=== PATIENT | female | born 1985 | race Caucasian/White ===

== ENCOUNTER 2018-04-12 14:47 | Emergency (ER) | payer OTHER, MEDICAID, SELFPAY ==
[2018-04-12 14:53] VITALS: BP 113/60; PULSE 82; RESP 18; TEMP 36.8; O2SAT 100; BMI 16.5
--- NOTE | 2018-04-12 15:17 | ED_ITS ---
HPI - General Adult <ANNA Mercer - Last Filed: 04/12/18 22:35> General Chief complaint: Diabetic Problem Stated complaint: POSSIBLE PRE DIABETIC,BLURRY VISION LETHARGIC Time Seen by Provider: 04/12/18 15:16 History of Present Illness HPI narrative: 32-year-old female here for complaint of having episodes of blurry vision on and off over the past couple of months. She believes that the blurry episodes coincide with when she has eaten something sugar and is concerned for diabetes. She denies any head injury. She denies any headaches. No discomfort at this time. No blurry vision at this time. She states that the last blurry episode was yesterday and lasted approximately 2 hr. Positive p.o. intake. No fevers no chills. She denies any other concerns or complaints at this time. Related Data Home Medications Medication Instructions Recorded Confirmed medroxyprogesterone 150 mg IM X1 #0 03/02/17 Previous Rx's Medication Instructions Recorded levonorgestrel-ethinyl estrad 1 tab PO QDAY #3 pac 09/09/17 [Aviane] levonorgestrel [My Way] 1.5 mg PO ONCE #1 tab 09/19/17 nitrofurantoin monohyd/m-cryst 100 mg PO BID #10 tab 10/13/17 [Macrobid] lorazepam [Ativan] 1 mg PO Q4H PRN #8 tab 01/10/18 Allergies Allergy/AdvReac Type Severity Reaction Status Date / Time No Known Drug Allergies Allergy Verified 04/12/18 15:02 Review of Systems <ANNA Mercer - Last Filed: 04/12/18 22:35> Constitutional Denies chills, Denies fever(s), Denies lethargy and Denies weakness Eyes Reports blurry vision ENT Ears, Nose, Mouth, and Throat: Denies change in voice, Denies neck pain and Denies sore throat Cardiovascular Denies chest pain, Denies irregular heart rhythm, Denies lightheadedness, Denies palpitations, Denies dyspnea, Denies dyspnea on exertion and Denies orthopnea Respiratory Denies cough, Denies dyspnea, Denies dyspnea on exertion and Denies wheezing Gastrointestinal Gastrointestinal: Denies abdominal pain, Denies change in bowel habits, Denies diarrhea, Denies nausea and Denies vomiting Genitourinary Denies hematuria, Denies flank pain, Denies urinary incontinence and Denies urinary urgency Musculoskeletal Denies neck pain Integumentary/Breasts Denies pruritus, Denies erythema, Denies rash and Denies wounds Neurologic Denies weakness Endocrine Denies palpitations Hematologic/Lymphatic Denies easy bruising Allergic/Immunologic Denies wheezing Exam <ANNA Mercer - Last Filed: 04/12/18 22:35> Initial Vital Signs Initial Vital Signs: Vital Signs Temperature 98.2 F 04/12/18 14:53 Pulse Rate 82 04/12/18 14:53 Respiratory Rate 18 04/12/18 14:53 Blood Pressure 113/60 04/12/18 14:53 Pulse Oximetry 100 04/12/18 14:53 Const General: cooperative and well developed Nutritional Appearance: well nourished Orientation: alert, awake, oriented x3 and not confused HENCT Mouth: oral mucosae normal and moist mucous membranes Eyes General: appearance normal, both eyes and all related structures Eyelids: eyelids normal Conjunctivae: conjunctivae normal Sclera: sclerae normal Pupils: PERRL EOM: EOM intact bilaterally Resp Effort & Inspection: normal respiratory effort, able to speak in complete sentences, no respiratory distress and no use of accessory muscles Auscultation: clear to auscultation bilaterally, no rales, no rhonchi and no wheezes Cardio Rate: regular rate Rhythm: regular rhythm Heart Sounds: no click, no gallops, no murmurs and no rubs Skin General: no rashes or lesions noted, No jaundice and No petechiae Neuro General: alert, oriented x3, gait normal and no focal motor deficits Speech: speech normal <Jenn Markham DO - Last Filed: 04/18/18 07:28> Initial Vital Signs Initial Vital Signs: Vital Signs Temperature 98.2 F 04/12/18 14:53 Pulse Rate 82 04/12/18 14:53 Respiratory Rate 18 04/12/18 14:53 Blood Pressure 113/60 04/12/18 14:53 Pulse Oximetry 100 04/12/18 14:53 Course <NANA Mercer - Last Filed: 04/12/18 22:35> Orders Ordered: ED Orders 04/12/18 17:34 CT head/brain wo con Stat 04/12/18 18:35 Complete Blood Count AUTO DIFF Stat Comprehensive Metabolic Panel Stat Thyroid Stimulating Hormone Stat Vital Signs - 8 hr 04/12/18 14:53 04/12/18 18:19 04/12/18 20:34 Temperature 98.2 F Pulse Rate 82 54 L 56 L Respiratory Rate 18 14 Blood Pressure 113/60 121/56 H Blood Pressure [Right Arm] 114/46 L Pulse Oximetry 100 100 18 L <Jenn Markham DO - Last Filed: 04/18/18 07:28> Orders Ordered: ED Orders 04/12/18 17:34 CT head/brain wo con Stat 04/12/18 18:35 Complete Blood Count AUTO DIFF Stat Comprehensive Metabolic Panel Stat Thyroid Stimulating Hormone Stat Vital Signs - 8 hr 04/12/18 14:53 04/12/18 18:19 04/12/18 20:34 Temperature 98.2 F Pulse Rate 82 54 L 56 L Respiratory Rate 18 14 Blood Pressure 113/60 121/56 H Blood Pressure [Right Arm] 114/46 L Pulse Oximetry 100 100 18 L Medical Decision Making <ANNA Mercer - Last Filed: 04/12/18 22:35> MDM Narrative Medical decision making narrative: CBC Chem panel were obtained and were unremarkable. TSH was only slightly low at 0.45. Head CT was obtained and was unremarkable. No causes of her episodes of blurry vision is seen. Will have her monitor her blood pressure over the next several days and bring results with her to her primary care provider for further evaluation. Follow up with primary care provider next week. Return emergency room for any worsening symptoms. Lab Data Result diagrams: 04/12/18 18:35 04/12/18 18:35 Lab Results 04/12/18 04/12/18 04/12/18 Range/Units 18:35 18:35 18:35 WBC 8.0 (4.5-11.0) X10^3/uL RBC 4.34 (4.0-5.2) X10^6/uL Hgb 13.8 (12.0-16.0) g/dL Hct 41.0 (36-46) % MCV 94.5 (80-100) fL MCH 31.8 (26-34) PG MCHC 33.6 (30-36) % RDW 13.0 (11.6-14.8) % Plt Count 211 (150-400) X10^3/uL Neut % (Auto) 65.0 (50-75) % Lymph % (Auto) 25.2 (25-40) % [place] % (Auto) 7.6 (3-14) % Eos % (Auto) 1.8 L (2-4) % Baso % (Auto) 0.4 (0-2) % Neut # (Auto) 5200 (2669-0416) /uL Sodium 139 (137-145) mmol/L Potassium 3.9 (3.4-5.1) mmol/L Chloride 101 (98-107) mmol/L Carbon Dioxide 31 (22-32) mmol/L BUN 16 (7-17) mg/dL Creatinine 0.70 (0.52-1.04) mg/dL Estimated GFR > 60.0 (>60) mL/min BUN/Creatinine Ratio 22.9 H (6-22) Glucose 100 (70-100) mg/dL Calcium 8.9 (8.4-10.2) mg/dL Total Bilirubin 0.5 (0.2-1.3) mg/dL AST 18 (14-36) IU/L ALT 20 (9-52) IU/L Alkaline Phosphatase 52 (38-126) U/L Total Protein 6.9 (6.3-8.2) g/dL Albumin 4.0 (3.5-5.0) g/dL Globulin 2.9 (1.7-4.1) g/dL Albumin/Globulin Ratio 1.4 (1.0-2.8) TSH 0.45 L (0.47-4.68) uIU/mL Imaging Data Head CT: Radiologist's impression: PROCEDURE: CT HEAD/BRAIN WO CON INDICATIONS: States has had periods of a blurry vision on and off TECHNIQUE: Noncontrast 4.5 mm thick angled axial sections acquired from the foramen magnum to the vertex, with coronal and sagittal reformats. For radiation dose reduction, the following was used: automated exposure control, adjustment of mA and/or kV according to patient size. COMPARISON: None. FINDINGS: Image quality: Excellent. CSF spaces: Basal cisterns are patent. No extra-axial fluid collections. Ventricles are normal in size and shape. Brain: No midline shift. No intracranial masses or hemorrhage. Isbell-white matter interface is normal. Skull and face: Calvarium and visualized facial bones are intact, without suspicious lesions. Sinuses: Visualized sinuses and mastoids are clear. IMPRESSION: Unremarkable intracranial study. Dictated by: Oscar Carias M.D. on 04/12/2018 at 16:52 Approved by: Oscar Carias M.D. on 04/12/2018 at 16:53 <Jenn Markham DO - Last Filed: 04/18/18 07:28> Lab Data Lab Results 04/12/18 04/12/18 04/12/18 Range/Units 18:35 18:35 18:35 WBC 8.0 (4.5-11.0) X10^3/uL RBC 4.34 (4.0-5.2) X10^6/uL Hgb 13.8 (12.0-16.0) g/dL Hct 41.0 (36-46) % MCV 94.5 (80-100) fL MCH 31.8 (26-34) PG MCHC 33.6 (30-36) % RDW 13.0 (11.6-14.8) % Plt Count 211 (150-400) X10^3/uL Neut % (Auto) 65.0 (50-75) % Lymph % (Auto) 25.2 (25-40) % [place] % (Auto) 7.6 (3-14) % Eos % (Auto) 1.8 L (2-4) % Baso % (Auto) 0.4 (0-2) % Neut # (Auto) 5200 (4333-9767) /uL Sodium 139 (137-145) mmol/L Potassium 3.9 (3.4-5.1) mmol/L Chloride 101 (98-107) mmol/L Carbon Dioxide 31 (22-32) mmol/L BUN 16 (7-17) mg/dL Creatinine 0.70 (0.52-1.04) mg/dL Estimated GFR > 60.0 (>60) mL/min BUN/Creatinine Ratio 22.9 H (6-22) Glucose 100 (70-100) mg/dL Calcium 8.9 (8.4-10.2) mg/dL Total Bilirubin 0.5 (0.2-1.3) mg/dL AST 18 (14-36) IU/L ALT 20 (9-52) IU/L Alkaline Phosphatase 52 (38-126) U/L Total Protein 6.9 (6.3-8.2) g/dL Albumin 4.0 (3.5-5.0) g/dL Globulin 2.9 (1.7-4.1) g/dL Albumin/Globulin Ratio 1.4 (1.0-2.8) TSH 0.45 L (0.47-4.68) uIU/mL Discharge Plan Departure Patient Disposition: Home, Self-Care Clinical Impression: Blurring of vision Discharge Date/Time: 04/12/18 20:34 Interventions: ED Discharge Assessment Last Done: 04/12/18 20:34 Instructions: DI for Visual Field Disturbances Activity Restrictions/Additional Instructions: Laboratory results today and head CT were negative. Causes symptoms is not seen today in the emergency room. Monitor your blood pressure periodically over the next several days and bring results with you to her primary care provider when you follow up within next week. For any worsening symptoms return to the emergency room. Prescriptions: No Action medroxyprogesterone 150 MG/1 ML suspension 150 mg IM X1 Qty: 0 RF: 0 levonorgestrel-ethinyl estrad [Aviane] 1 EACH tablet 1 tab PO QDAY Qty: 3 RF: 4 levonorgestrel [My Way] 1.5 MG tablet 1.5 mg PO ONCE Qty: 1 RF: 1 nitrofurantoin monohyd/m-cryst [Macrobid] 100 MG capsule 100 mg PO BID Qty: 10 RF: 0 lorazepam [Ativan] 1 MG tablet 1 mg PO Q4H PRNQty: 8 RF: 0 Referrals: Aydee Sands ARNP [Primary Care Provider] - <Jenn Markham DO - Last Filed: 04/18/18 07:28> Cosign ED Attending [place] Attestation: I was immediately available in the department for consultation. Documentation has been reviewed. I agree with assessment and plan.
--- NOTE | 2018-04-12 17:11 | PC.NURSE ---
Pt states I need blood work. Unable to see primary for a week so came to ED. Steady gait, easy work of breathing. No acute distress but requesting multiple lab studies including thyroid, HgbA1C. Attempted to manage expectations stating that the provider would have to order labs.
--- NOTE | 2018-04-12 17:34 | DI.CT.S_ITS ---
PROCEDURE: CT HEAD/BRAIN WO CON INDICATIONS: States has had periods of a blurry vision on and off TECHNIQUE: Noncontrast 4.5 mm thick angled axial sections acquired from the foramen magnum to the vertex, with coronal and sagittal reformats. For radiation dose reduction, the following was used: automated exposure control, adjustment of mA and/or kV according to patient size. COMPARISON: None. FINDINGS: Image quality: Excellent. CSF spaces: Basal cisterns are patent. No extra-axial fluid collections. Ventricles are normal in size and shape. Brain: No midline shift. No intracranial masses or hemorrhage. Isbell-white matter interface is normal. Skull and face: Calvarium and visualized facial bones are intact, without suspicious lesions. Sinuses: Visualized sinuses and mastoids are clear. IMPRESSION: Unremarkable intracranial study. Dictated by: Oscar Carias M.D. on 04/12/2018 at 16:52 Approved by: Oscar Carias M.D. on 04/12/2018 at 16:53
[2018-04-12 18:19] VITALS: BP 114/46; PULSE 54; RESP 14; O2SAT 100
[2018-04-12 19:04] LABS: Alanine Aminotransferase 20 IU/L (9-52); Albumin Globulin Ratio 1.4 (1.0-2.8); Alkaline Phosphatase 52 U/L (38-126); Aspartate Aminotransferase 18 IU/L (14-36); BUN Creatinine Ratio 22.9 (6-22); Bilirubin Total 0.5 mg/dL (0.2-1.3); Blood Urea Nitrogen 16 mg/dL (7-17); Calcium 8.9 mg/dL (8.4-10.2); Carbon Dioxide 31 mmol/L (22-32); Chloride 101 mmol/L (98-107); Estimated Glomerular Filt Rate > 60.0 mL/min (>60); Globulin 2.9 g/dL (1.7-4.1); Glucose 100 mg/dL (70-100); HEMOLYSIS < 15 (0-50); Potassium 3.9 mmol/L (3.4-5.1); Sodium 139 mmol/L (137-145); Total Protein 6.9 g/dL (6.3-8.2)
[2018-04-12 19:10] LABS: Add Manual Diff / Slide Review NO; Basophils Percent Auto 0.4 % (0-2); Eosinophils Percent Auto 1.8 % (2-4); Hemoglobin 13.8 g/dL (12.0-16.0); Lymphocytes Percent Auto 25.2 % (25-40); Mean Corpuscular HGB Conc 33.6 % (30-36); Mean Corpuscular Hemoglobin 31.8 PG (26-34); Mean Corpuscular Volume 94.5 fL (80-100); Monocytes Percent Auto 7.6 % (3-14); Neutrophils Absolute Auto 5200 /uL (3000-5900); Platelet Count 211 X10^3/uL (150-400); Red Blood Cell Count 4.34 X10^6/uL (4.0-5.2)
[2018-04-12 20:11] LABS: Thyroid Stimulating Hormone 0.45 uIU/mL (0.47-4.68)
[2018-04-12 20:34] VITALS: BP 121/56; PULSE 56; O2SAT 18
== END 2018-04-12 20:34 | disposition home or self-care (01) ==
PROVIDERS: Emergency Provider Nurse Practitioner Family; PCP Internal Medicine
DX: H53.8 Other visual disturbances (principal)
CPT/HCPCS: 70450; 80053; 82962; 84443; 85025; 99283; 99284

== ENCOUNTER 2018-11-13 09:49 | Emergency (ER) | payer OTHER, MEDICAID, SELFPAY ==
[2018-11-13 10:00] VITALS: BP 112/50; PULSE 60; RESP 16; TEMP 36.7; O2SAT 99
--- NOTE | 2018-11-13 10:21 | ED.URI ---
HPI - URI/Sore Throat General Chief Complaint: Upper Respiratory Symptoms Stated Complaint: pnemonia, starting to vomit with cough, chest pain Time Seen by Provider: 11/13/18 10:07 Source: patient and family Mode of arrival: ambulatory Limitations: no limitations History of Present Illness HPI Narrative: This is a 33-year-old female comes to the emergency department with complaint of feeling under the weather, no fevers but cough it has been dry. Patient states she has had a little bit of nasal congestion but mostly she has had chest congestion. She states that some sometimes if she coughs very hard to gets pain in her central chest. Patient states that if she is exerting herself sometimes she will feel short of breath. Patient states about a month ago she was diagnosed with influenza based on symptoms., patient states that in the last day or 2 she has had some nausea and threw up once today. She has had maybe some mild constipation but having bowel movements. She has noticed urinary frequency, urgency and no dysuria but feels fullness in her pelvis. She also states she has been on the Depo shot for about for 5 months. Her most recent was in October. Patient states she does smoke about 2 or 3 cigarettes most days sometimes more, occasional alcohol. She sees a Aydee Sands as her PCP. Related Data Home Medications Medication Instructions Recorded Confirmed medroxyprogesterone [Depo-Provera] 150 mg IM [id number] 11/13/18 11/13/18 Previous Rx's Medication Instructions Recorded cephalexin [Keflex] 500 mg PO BID #10 cap 11/13/18 ondansetron 4 mg PO Q6H PRN #10 tab 11/13/18 prenat.vits,anton,sry-spcx-bnxre 1 tab PO DAILY #30 tab 11/13/18 Allergies Allergy/AdvReac Type Severity Reaction Status Date / Time No Known Drug Allergies Allergy Verified 08/02/18 09:21 Review of Systems Review of Systems ROS Unobtainable: All systems reviewed & are unremarkable except as noted in HPI and below Constitutional Denies fatigue and Denies lethargy Eyes Reports eye discharge (teary eyes) ENT Ears, Nose, Mouth, and Throat: Reports nasal congestion (very mild) and Denies sore throat Cardiovascular Reports chest pain (when coughing hard), Denies diaphoresis, Denies syncope, Denies irregular heart rhythm, Denies lightheadedness, Denies radiating jaw, neck or arm pain, Denies palpitations, Denies dyspnea, Reports dyspnea on exertion and Denies orthopnea Respiratory Denies change in phlegm color, Reports chest congestion, Reports cough, Denies excessive phlegm production, Denies pain on inspiration, Reports pain with cough, Denies dyspnea, Reports dyspnea on exertion, Denies stridor and Denies wheezing Gastrointestinal Gastrointestinal: Denies abdominal pain, Denies change in bowel habits, Reports constipation (mild), Denies diarrhea, Reports nausea and Reports vomiting (x1) Genitourinary Reports as per HPI, Reports amenorrhea (since Depo), Denies hematuria, Reports urinary frequency, Denies dysuria, Denies flank pain, Denies urinary incontinence, Reports urinary urgency, Denies vaginal discharge and Reports other (pelvis feels full) Musculoskeletal Denies myalgias Integumentary/Breasts Denies rash Neurologic Denies syncope Endocrine Denies fatigue and Denies palpitations Allergic/Immunologic Denies wheezing PFSH Surgical History Status post dilation and curettage Family History Grandfather Prostate cancer Grandmother Breast cancer Diabetes mellitus Mother Chronic hepatitis B with cirrhosis Social History Smoking Status: Current every day smoker alcohol intake: current Family History Grandfather Prostate cancer Grandmother Breast cancer Diabetes mellitus Mother Chronic hepatitis B with cirrhosis Social History Smoking Status: Current every day smoker alcohol intake: current Exam Narrative Exam Narrative: GEN: well nourished, well appearing female, alert and oriented x , patient appears to be in mild distress. HEENT: Atraumatic, pupils are equal round reactive to light, extraocular movements are intact, nares are clear, TMs are clear with no fluid, there is no conjunctival pallor. Throat is clear without any exudates, erythema, tonsillar enlargement or uvular deviation HEART: Regular rate and rhythm without murmur, clicks, rubs. LUNGS:Lungs clear to auscultation, no wheezes, rales, crackles, chest moves symmetrically. No tachypnea, no accessory muscle use. ABD:bowel sounds normal, soft, non-tender, no guarding, rebound, rigidity, no masses noted, no hepatosplenomegaly :No CVA tenderness MSCL: Non-tender, no muscle atrophy, muscles strength 5/5 upper and lower extremities, full range of motion, normal gait NEURO:CN 2-12 intact, sensation normal SKIN: no rash, no pallor. Initial Vital Signs Initial Vital Signs: Vital Signs Temperature 98.1 F 11/13/18 10:00 Pulse Rate 60 11/13/18 10:00 Respiratory Rate 16 11/13/18 10:00 Blood Pressure 112/50 L 11/13/18 10:00 Pulse Oximetry 99 11/13/18 10:00 Course Orders Ordered: Discontinued Medications Ondansetron HCl (Zofran Odt) 4 mg SL NOW ONE Stop: 11/13/18 10:56 Last Admin: 11/13/18 11:04 Dose: 4 mg Vital Signs - 8 hr 11/13/18 10:00 Temperature 98.1 F Pulse Rate 60 Respiratory Rate 16 Blood Pressure 112/50 L Pulse Oximetry 99 MDM - URI/Sore Throat Lab Data Attestation: I reviewed the patient's lab results. Lab Results 11/13/18 Range/Units 10:30 Urine RBC 1-5/hpf (0-5/HPF) Urine WBC 30-100/hpf H (0-5/HPF) Ur Squamous Epith Cells 1-5 /hpf Urine Bacteria Many (>30) H (None) Ur Culture Indicated? Specimen cultured Point of Care Testing Test Results Positive Urine Dip Bedside Urine Glucose Negative Bedside Urine Bilirubin - Negative Bedside Urine Ketone - Negative Urine Specific [place] 1.020 Bedside Urine Occult Blood +/- Bedside Urine pH 60 Bedside Urine Protein +/- 15 Bedside Urine Urobilinogen - Negative Bedside Urine Nitrite + Positive Bedside Urine Leukocytes ++ 125 Esterase Imaging Data Chest x-ray: Radiologist's impression: [address] [address] XRay Report Signed Patient: Marcos Olivarez KMR#: [id number] : 1985Acct:[id number] Age/Sex: 33 / FDate of Service: 11/13/18 Loc: ED Accession Number: [id number] Procedure: XR chest 2V Ordering Provider: Dyan Dewitt D.O. PROCEDURE: XR CHEST 2V INDICATIONS: cough, chest congestion for weeks TECHNIQUE: 2 views of the chest were acquired. COMPARISON: None. FINDINGS: Surgical changes and devices: None. Lungs and pleura: Lungs are clear. No pleural effusions or pneumothorax. Mediastinum: Mediastinal contours are normal. Heart size is normal. Bones and chest wall: No suspicious bony abnormalities. Soft tissues appear unremarkable. IMPRESSION: No acute cardiopulmonary disease process. Dictated by: Tiffany Bowens MD, PhD on 11/13/2018 at 10:32 Approved by: Tiffany Bowens MD, PhD on 11/13/2018 at 10:33 [facility] Narrative Medical decision making narrative: Patient did have a chest xray prior to positive test, this was unexpected as patient has been on depo-provera and at last shot in October had a negative test. Discussed with patient that there is some radiation exposure, likelihood of miscarriage or injury to the fetus is fairly low from a single chest x-ray. Answered all questions for patient. By dates using October 03 as her dates with her about 5-6 week range. Patient and I discussed plan to start prenatals. She has been nauseated to give her a Zofran here as well as a prescription. Urine does show some signs consistent with UTI so started on Keflex twice daily for 5 days. Call patient's primary care to help set up follow-up, appointment for 1:30pm this tuesday Discharge Plan Departure Patient Disposition: Home Clinical Impression: UTI (urinary tract infection), Discharge Date/Time: 11/13/18 11:15 Interventions: ED Discharge Assessment Last Done: 11/13/18 11:15 Instructions: Nicotine Replacement Therapy for Smoking Cessation During Activity Restrictions/Additional Instructions: Follow up with your primary care for recheck, care and discussion about options for smoking cessation. Take prenatals once daily. Take zofran sublingually or under the tongue every 6 hours as needed. Your prescriptions were sent to [email or web address] in [place]. Take antibiotics until gone. Stop smoking tobacco, avoid alcohol. Good job on your sobriety, keep going. Return for fevers, worsening shortness of breath, new chest pain, persistent vomiting or signs of dehydration or other new or concerning symptoms. Prescriptions: New ondansetron 4 mg tablet,disintegrating 4 mg PO Q6H PRN (Reason: nausea and vomiting) Qty: 10 RF: 0 prenat.vits,anton,[id number]-[id number]-tmpmd tablet 1 tab PO DAILY Qty: 30 RF: 0 cephalexin [Keflex] 500 mg capsule 500 mg PO BID Qty: 10 RF: 0 No Action medroxyprogesterone [Depo-Provera] 150 mg/mL Suspension 150 mg IM [id number] RF: 0 Referrals: Aydee Sands ARNP [Primary Care Provider] -
[2018-11-13 10:52] LABS: RBC Urine 1-5/HPF (0-5/HPF); WBC Urine 30-100/HPF (0-5/HPF)
[2018-11-13 10:53] LABS: Bacteria Urine Many (>30); Culture Indicated Urine Specimen Cultured; Squamous Epithelial Cell Urine 1-5 /HPF
[2018-11-13] MEDS: ONDANSETRON 4 MG ODT SL (11:04)
[2018-11-13 11:15] VITALS: BP 136/64; PULSE 62; RESP 18; TEMP 36.3; O2SAT 98
== END 2018-11-13 11:15 | disposition home or self-care (01) ==
PROVIDERS: Emergency Provider Emergency Medicine; PCP Internal Medicine
DX: O23.41 Unspecified infection of urinary tract in pregnancy, first trimester (principal); Z3A.01 Less than 8 weeks gestation of pregnancy
CPT/HCPCS: 71046; 81003; 81015; 81025; 87077; 87086; 87186; 99283; 99284

== ENCOUNTER → 2018-11-16 10:51 | Outpatient (CLI) | payer OTHER, MEDICAID, SELFPAY ==
--- NOTE | 2018-11-16 | DI.US.S_ITS ---
PROCEDURE: US OB >= 14 WEEKS FETUS INDICATIONS: SIZE AND DATING OUTSIDE/PRIOR DATING DATA: Last menstrual period (LMP): Unknown. LMP-based estimated date of delivery (NATHAN): N./A.. First dating scan (date and location): 11/16/18. Estimated date of delivery (NATHAN) from first dating scan: 04/20/19. TECHNIQUE: Real-time scanning was performed of the fetus, with image documentation and biometric measurements. Endovaginal scanning: No COMPARISON: None. FINDINGS: General: A single living intrauterine gestation is present. Presentation: Variable. Placenta: Placental position is posterior, without previa. Amniotic fluid index: Subjectively normal. heart rate: 149 beats per minute. Maternal cervical canal: 3.5 cm long. Normal lower limit is 2.5 cm. biometrics: Biparietal diameter: 17 weeks 5 days Head circumference: 17 weeks 6 days Abdominal circumference: 18 weeks 4 days Femur length: 17 weeks 2 days Estimated gestational age from initial scan: not applicable. Composite gestational age from present scan: 17 weeks 6 days Estimated weight and percentile: 216 g Measurement variability for biometric dating: +/- 7 days from 14 weeks to 15 weeks 6 days gestation, +/- 10 days from 16 weeks to 21 weeks 6 days gestation, +/- 2 weeks from 22 weeks to 27 weeks 6 days gestation, +/- 3 weeks for 28 weeks gestation or later. weight reference: 4500 g or EFW >90/95% is considered macrosomia or large for gestational age. EFW <10% is small for gestational age. EFW 5% or less is considered intra-uterine growth restriction. Limited anatomic survey secondary to early gestational age. IMPRESSION: 1. 17 week 6 day single living IUP corresponding to ultrasound NATHAN of 04/20/19. Followup anatomic survey recommended between 20 and 22 weeks gestation. Dictated by: Daniel Caban [facility] Interpreted: Estella Ramirez MD on 11/16/2018 at 15:31 Approved by: Estella Ramirez M.D. on 11/16/2018 at 17:45
== END ==
PROVIDERS: Family Provider Obstetrics & Gynecology; PCP Internal Medicine; Visit Provider Internal Medicine
DX: Z36.89 Encounter for other specified antenatal screening (principal); Z3A.17 17 weeks gestation of pregnancy
CPT/HCPCS: 76811

== ENCOUNTER → 2018-11-24 13:43 | Outpatient (CLI) | payer OTHER, MEDICAID, SELFPAY ==
[2018-11-24 15:00] LABS: Add Manual Diff / Slide Review NO; Basophils Absolute Auto 0 /uL (0-100); Basophils Percent Auto 0.3 % (0-2); Eosinophils Absolute Auto 100 /uL (0-450); Eosinophils Percent Auto 1.3 % (2-4); Hematocrit 39.9 % (36-46); Hemoglobin 13.2 g/dL (12.0-16.0); Lymphocytes Absolute Auto 2200 /uL (1100-4500); Lymphocytes Percent Auto 24.3 % (25-40); Mean Corpuscular HGB Conc 33.1 % (30-36); Mean Corpuscular Hemoglobin 31.3 PG (26-34); Mean Corpuscular Volume 94.6 fL (80-100); Monocytes Absolute Auto 700 /uL (0-900); Monocytes Percent Auto 7.5 % (3-14); Neutrophils Absolute Auto 5900 /uL (1500-7000); Neutrophils Percent Auto 66.6 % (50-75); Platelet Count 238 X10^3/uL (150-400); Red Blood Cell Count 4.22 X10^6/uL (4.0-5.2); Red Cell Distribution Width 13.8 % (11.6-14.8); White Blood Cell Count 8.9 X10^3/uL (4.5-11.0)
[2018-11-24 16:06] LABS: Hepatitis B Surface Antigen NEGATIVE s/c (NEGATIVE); Rubella Antibody IgG 22.9 IU/mL (>15)
[2018-11-24 16:25] LABS: HIV 1 and 2 Antibody NEGATIVE (NEGATIVE); Hep C Virus Ab w/Reflex Quant NEGATIVE s/c (NEGATIVE)
[2018-11-24 17:19] LABS: Urine N gonorrhoeae NOT DETECTED
[2018-11-24 17:23] LABS: Urine Chlamydia NOT DETECTED
[2018-11-27 06:19] LABS: RPR Screen Nonreactive (Nonreactive)
[2018-11-28 14:37] LABS: AFP, Serum 60.3 ng/mL; Cigarette Smoker Y; Donated Egg NOT GIVEN; Donor Egg Age NOT GIVEN; Estriol, Free 1.58 ng/mL; Inhibin A, Dimeric 533 pg/mL; Maternal Weight 120 lbs; Number of Fetuses NOT GIVEN; Previous Pregnancy Down Syndro NOT GIVEN; hCG, MoM 2.05; hCG, Serum 50.6 IU/mL
== END ==
PROVIDERS: PCP Internal Medicine; Visit Provider Obstetrics & Gynecology
DX: Z34.82 Encounter for supervision of other normal pregnancy, second trimester (principal); Z3A.18 18 weeks gestation of pregnancy
CPT/HCPCS: 36415; 80055; 82105; 82677; 84702; 86336; 86703; 86787; 86803; 86850; 86900; 86901; 87086; 87491; 87591

== ENCOUNTER → 2018-12-08 09:22 | Outpatient (CLI) | payer OTHER, MEDICAID, SELFPAY ==
--- NOTE | 2018-12-08 09:25 | DI.US.S_ITS ---
PROCEDURE: US OB >= 14 WEEKS FETUS INDICATIONS: anatomy survey OUTSIDE/PRIOR DATING DATA: Last menstrual period (LMP): Not available. LMP-based estimated date of delivery (NATHAN): Not available. First dating scan (date and location): 11/16/18. Estimated date of delivery (NATHAN) from first dating scan: 04/20/19. TECHNIQUE: Real-time scanning was performed of the fetus, with image documentation and biometric measurements. Endovaginal scanning: Not needed COMPARISON: [facility], OB >= 14 WEEKS FETUS, 11/16/2018, 11:35. FINDINGS: General: A single living intrauterine gestation is present. Presentation: Variable. Placenta: Placental position is posterior , without previa. Amniotic fluid index: 9.3 cm, normal range is 5-24 cm. heart rate: 149 beats per minute. Maternal cervical canal: 4.1 cm long. Normal lower limit is 2.5 cm. biometrics: Biparietal diameter: 4.7 cm, 20 weeks 2 days Head circumference: 18.3 cm, 20 weeks 5 days Abdominal circumference: 15.7 cm, 20 weeks 6 days Femur length: 3.3 cm, 20 weeks 3 days Estimated gestational age from initial scan: 20 weeks 4 days Composite gestational age from present scan: 21 weeks 4 days Estimated weight and percentile: 369 g, 28th percentile Measurement variability for biometric dating: +/- 7 days from 14 weeks to 15 weeks 6 days gestation, +/- 10 days from 16 weeks to 21 weeks 6 days gestation, +/- 2 weeks from 22 weeks to 27 weeks 6 days gestation, +/- 3 weeks for 28 weeks gestation or later. weight reference: 4500 g or EFW >90/95% is considered macrosomia or large for gestational age. EFW <10% is small for gestational age. EFW 5% or less is considered intra-uterine growth restriction. Anatomic survey: Neuro: Ventricles are non-dilated at less than 10 mm. Cisterna magna is normal at 3-11 mm. Cerebellum is normal in size and morphology. Nuchal skin fold: Normal at less than 6 mm between 14-21 weeks gestational age. Face: Nose and lips, facial profile are normal. Spine: No evidence for spina bifida. Heart: 4-chambered heart is present, with normal ventricular outflow tracts. Diaphragm: Diaphragm is intact. Stomach: Left-sided stomach is present. Kidneys: No hydronephrosis. Normal is less than 5 mm in 2nd trimester, less than 7 mm in 3rd trimester. Cord: 3-vessel cord has orthotopic insertion. Bladder: Normal in size. Extremities: All 4 extremities identified. IMPRESSION: Normal survey of anatomy, appropriate interval growth. The delivery date is projected to be centered on 04/20/19. Dictated by: Alcon Jordan M.D. on 12/08/2018 at 12:34 Approved by: Alcon Jordan M.D. on 12/08/2018 at 12:37
== END ==
PROVIDERS: PCP Internal Medicine; Visit Provider Obstetrics & Gynecology
DX: Z34.82 Encounter for supervision of other normal pregnancy, second trimester (principal); Z3A.20 20 weeks gestation of pregnancy
CPT/HCPCS: 76811

== ENCOUNTER → 2019-02-14 08:48 | Outpatient (CLI) | payer OTHER, MEDICAID, SELFPAY ==
[2019-02-14 10:33] LABS: Hematocrit 33.7 % (36-46); Hemoglobin 11.5 g/dL (12.0-16.0)
[2019-02-14 10:48] LABS: GTT (PREG) 1 Hour PP 50gm Dose 104 mg/dL (76-139)
== END ==
PROVIDERS: PCP Internal Medicine; Visit Provider Obstetrics & Gynecology
DX: Z34.82 Encounter for supervision of other normal pregnancy, second trimester (principal); Z3A.25 25 weeks gestation of pregnancy
CPT/HCPCS: 36415; 82950; 85014; 85018; 86850

== ENCOUNTER → 2019-03-27 09:57 | Outpatient (CLI) | payer OTHER, MEDICAID, SELFPAY ==
[2019-03-28 15:47] LABS: Strep Grp B PCR POS for Grp B Strep
== END ==
PROVIDERS: PCP Internal Medicine; Visit Provider Obstetrics & Gynecology
DX: Z34.83 Encounter for supervision of other normal pregnancy, third trimester (principal)
CPT/HCPCS: 87653

== ENCOUNTER 2019-04-13 07:11 | Inpatient (IN) | payer OTHER, MEDICAID, SELFPAY ==
[2019-04-13] VITALS (9 sets, daily range): BP systolic 104–121; BP diastolic 53–89; PULSE 70–90; RESP 14–16; TEMP 36.4–36.7; O2SAT 96–99
--- NOTE | 2019-04-13 | PATH_ITS ---
[facility] Accession Number: [id number] . 01 Material submitted: . fallopian tube - SEGMENTS OF RIGHT AND LEFT FALLOPIAN TUBES . 01 Diagnosis: Segments of Right and Left Fallopian Tubes, Excision: Segments of bilateral fallopian tubes without significant abnormalities. MRV/04/16/2019 . 01 Electronically signed: . Myah Karimi MD, Pathologist NPI- [id number] . 01 Gross description: . Received in formalin, labeled with the patient's name and segments of right and left fallopian tubes, are two segments of fallopian tube without fimbriated ends measuring 1.4 cm in length by 0.5 cm in diameter and 1.6 cm in length by 0.4 cm in diameter. The specimen are submitted intact separately in two cassettes. (LUCIEN:[id number]) /MRV . Pathologist provided ICD-10: Z30.2 . 01 CPT . 021112 Performed at: [address], [place], [place] [id number] MD Luke Guallpa MD Phone: [phone]
[2019-04-13] MEDS: LACTATED RINGERS 1,000 ML 100 ML IV ×2 (08:07→11:20)
[2019-04-13] MEDS: OXYTOCIN PREMIX 30 UNIT/500 ML PLAST..BAG IV (08:11)
[2019-04-13] MEDS: PENICILLIN G POTASSIUM 5,000,000 UNIT in DEXTROSE 5% IN WATER 250 ML IV (08:16)
[2019-04-13 08:48] LABS: Add Manual Diff / Slide Review NO; Basophils Absolute Auto 0 /uL (0-100); Basophils Percent Auto 0.4 % (0-2); Eosinophils Absolute Auto 100 /uL (0-450); Eosinophils Percent Auto 0.9 % (2-4); Hematocrit 33.2 % (36-46); Hemoglobin 11.4 g/dL (12.0-16.0); Lymphocytes Absolute Auto 2200 /uL (1100-4500); Lymphocytes Percent Auto 35.6 % (25-40); Mean Corpuscular HGB Conc 34.4 % (30-36); Mean Corpuscular Hemoglobin 30.7 PG (26-34); Mean Corpuscular Volume 89.5 fL (80-100); Monocytes Absolute Auto 600 /uL (0-900); Monocytes Percent Auto 9.9 % (3-14); Neutrophils Absolute Auto 3200 /uL (1500-7000); Neutrophils Percent Auto 53.2 % (50-75); Platelet Count 224 X10^3/uL (150-400); Red Blood Cell Count 3.71 X10^6/uL (4.0-5.2); White Blood Cell Count 6.1 X10^3/uL (4.5-11.0)
[2019-04-13] MEDS: PENICILLIN G POTASSIUM 3,000,000 UNIT/50 ML FROZ.PIGGY 100 UNIT IV (12:07)
--- NOTE | 2019-04-13 16:16 | P.HPOB_ITS ---
OB HPI Date/Time Date of admission: 04/13/19 Date Patient Seen: 04/13/19 Time Patient Seen: 09:30 History of Present Condition Chief complaint: INDUCTION : 7 Para: 5 Estimated Date of Delivery: 04/20/19 Estimated Gestational Age (weeks): 39 Narrative: Marcos Olivarez is a 33 year old female 7 para 5 at 39 weeks gestation for induction of labor Indications Indication for induction OB: history of rapid labor History of Present care: limited care, initiated at week # (18), number of visits (7) and pounds weight gain (26) Dating criteria: based on 2nd trimester US only Ultrasounds: normal mid trimester US Obstetrical complications: none Medical complications: none Preadmission Labs Blood type: 0 (-) negative -: Antibody screen: negative, GBS status: positive, HBsAG: negative and RPR/VDLR: negative -: Chlamydia screen: not detected and Gonorrhea screen: not detected -: Rubella: immune HCT: 33.7 HCAB: negative Quad screen: Normal Urine: negative 1 hr GTT: 104 Prior (ies) History: 5 2 complicated by PPH Evaluation Evaluation Baseline heart rate: 130 Variability: Moderate (11-25) monitor accelerations: Present monitor decelerations: Absent Category of Tracing: I Cervical dilation (cm): 3 Cervical effacement (%): 80 station: -1 Laboratory results: Laboratory Tests 04/13/19 04/13/19 08:18 08:18 WBC 6.1 RBC 3.71 L Hgb 11.4 L Hct 33.2 L MCV 89.5 MCH 30.7 MCHC 34.4 RDW 14.0 Plt Count 224 Neut % (Auto) 53.2 Lymph % (Auto) 35.6 [place] % (Auto) 9.9 Eos % (Auto) 0.9 L Baso % (Auto) 0.4 Neut # (Auto) 3200 Lymph # (Auto) 2200 [place] # (Auto) 600 Eos # (Auto) 100 Baso # (Auto) 0 Blood Type O Negative Antibody Screen Positive Antibody Identification Anti-D PFSH Family History (Updated 03/03/17 @ 00:00 by Conversion Provider) Grandfather Prostate cancer Grandmother Breast cancer Diabetes mellitus Mother Chronic hepatitis B with cirrhosis Social History Smoking Status: Never smoker alcohol intake: current Meds Home Medications Medication Instructions Recorded Confirmed Type prenat.vits,anton,irl-maae-bqwzr 1 tab PO DAILY #30 tab 11/13/18 04/13/19 Rx Allergies Allergy/AdvReac Type Severity Reaction Status Date / Time No Known Drug Allergies Allergy Verified 08/02/18 09:21 Exam Vital Signs (past 8 hours): - 04/13/19 12:02 Blood Pressure 118/53 L Narrative Exam Narrative: Generally: No acute distress Lungs: Clear to auscultation bilaterally Cardiovascular: Regular rate and rhythm Fundal height: 37 cm Estimated weight: 7-1/2 lb Extremities: Negative Homans, no edema Objective Labs Result Diagrams: 04/13/19 08:18 Labs: Laboratory Results - last 24 hr 04/13/19 04/13/19 08:18 08:18 WBC 6.1 RBC 3.71 L Hgb 11.4 L Hct 33.2 L MCV 89.5 MCH 30.7 MCHC 34.4 RDW 14.0 Plt Count 224 Neut % (Auto) 53.2 Lymph % (Auto) 35.6 [place] % (Auto) 9.9 Eos % (Auto) 0.9 L Baso % (Auto) 0.4 Neut # (Auto) 3200 Lymph # (Auto) 2200 [place] # (Auto) 600 Eos # (Auto) 100 Baso # (Auto) 0 Blood Type O Negative Antibody Screen Positive Antibody Identification Anti-D Assessment and Plan Assessment and Plan Assessment and Plan narrative: Assessment: 33-year-old 7 para 5 at 39 weeks gestation for induction of labor secondary to history of rapid labors Baby up for adoption GBS positive Desires permanent sterilization Plan: Pitocin per protocol 2 Epidural as necessary GBS prophylaxis tubal ligation Time Spent with Patient Total time spent with greater than 50% in coordination of care (as documented) at patient's floor/unit and/or counseling patient:: 15-24 minutes
--- NOTE | 2019-04-13 16:16 | PM.OBPRVD ---
Events: Labor Induction Delivery date: 04/13/19 Intrapartal events: Intolerance and Deceleration (variable) Cervical ripening method: none Induction method: per pitocin protocol Delivery augmentation: rupture of membranes Delivery monitor: external FHT and external uterine Route of delivery: vacuum extraction Indication for instrumentation: nonreassuring FHR tracing Episiotomy description: None L&D Laceration Description: None Estimated blood loss (mL): 100 Anesthesia type: Epidural Complications: none Narrative: Patient complete and pushed for 15 minutes. At 1536, a live female infant delivered spontaneously over an intact perineum. The cord was double clamped and cut. Cord bloods were obtained. Pitocin was given in the IV fluids. The placenta delivered intact with a three-vessel cord at 3:38 p.m.. Fundus was massaged to firm. No lacerations. Apgars 9 at 1 minute and 9 at 5 minutes. Epidural analgesia. Baby up for adoption. Adoptive parents here. Mom and stable to recovery. Plan for aftercare: To routine care
--- NOTE | 2019-04-13 16:31 | PM.PREOP ---
Pre-operative Note Interval Note History & Physical reviewed/Exam performed by Physician: Yes Changes to H&P: No
--- NOTE | 2019-04-13 17:14 | SUR.OPER ---
Supine on padded OR bed, head on pillow, arms secured on padded arm boards at <90 degrees abduction, legs uncrossed, safety belt at thigh, tape over blanket over lower legs.
[2019-04-13] MEDS: BUPIVACAINE 0.5% W/ EPI (PF) VIAL 30 ML INJ (17:20)
[2019-04-13] MEDS: MEPERIDINE 100 MG/ML INJ IV (18:03)
[2019-04-13] MEDS: fentaNYL 100 MCG/2 ML INJ 50 MCG IV (18:52)
[2019-04-13] MEDS: OXYCODONE/ACETAMINOPHEN 5/325 TABLET 2 TAB PO (21:55)
--- NOTE | 2019-04-14 00:54 | PM.GYNOP.1 ---
Operative Date/Time/Diagnoses Date of procedure: 04/13/19 Time of procedure: 17:35 Pre-op diagnosis: Grand multiparity Desires permanent sterilization Post-op diagnosis: same Procedure: Procedures Operation Date: 04/13/19 17:00 Actual Procedures Side Surgeon p Post Bilateral Tubal Ligation Bilateral Cheryl Castanon MD Indications: Grand multiparity Desires permanent sterilization Surgeon: Cheryl Castanon Anesthesia Type: Epidural and Local Operative Notes Findings: Normal uterus, tubes, and ovaries Closure Type: primary Specimen(s): portion of left tube and portion of right tube Applied: catheter Estimated blood loss (mL): 5 Blood products transfused: none Procedure in detail: After informed consent was obtained, the patient was taken to the operating room where she was placed in the dorsal supine position. After epidural anesthesia was found to be adequate, she was prepped and draped in the usual sterile fashion. A timeout was performed. 6 mL of half percent Marcaine with epinephrine were injected in the umbilical fold. A 2 cm incision was made. This was carried down to the underlying layer fascia. The fascia was nicked in the midline and the incision extended bilaterally with the Tapia scissors. The peritoneum was grasped between 2 hemostats and entered sharply with the Metzenbaum scissors. The left tube was grasped with a Brennan and carried out to the fimbriated end. Two [address] to the distal end a 2-1/2 cm segment of tube was ligated with O-plain chromic x 2. A 1 cm segment of tube was excised. The ends of the tube were cauterized for hemostasis. The left tube was returned to the peritoneal cavity. This was repeated on the patient's right tube. Hemostasis was achieved. The fascia was reapproximated with 0 Vicryl. The subcutaneous layer was reapproximated with 3-0 Vicryl with 2 simple interrupted sutures. The skin was closed with 4-0 by us in a sub cuticular fashion. Steri-Strips, 2 x 2's, and an OpSite were placed. Sponge, lap, and instrument counts were correct x-2. The patient tolerated the procedure well, was taken to PACU in stable condition. Complications: none Post-operative Condition: stable Disposition: PACU Plan for aftercare: To the center after recovery
[2019-04-14] MEDS: OXYCODONE/ACETAMINOPHEN 5/325 TABLET 2 TAB PO ×5 (04:07→21:06)
[2019-04-14] MEDS: KETOROLAC 30 MG/ML VIAL IV ×3 (04:14→20:35)
[2019-04-14 05:19] LABS: Hematocrit 35.4 % (36-46)
--- NOTE | 2019-04-14 08:41 | PM.OBPN.1 ---
Subjective - OB Patient comments: incisional pain [place] baby status: doing well [place] feeding status: exclusively breast feeding Narrative: The patient is post spontaneous vaginal delivery and bilateral tubal ligation. Bleeding has increased some. She does have a history of a hemorrhage in her last Date Patient Seen: 04/14/19 Time Patient Seen: 08:42 Exam Vital Signs (past 8 hours): Oxygen Delivery Method Room Air Narrative Exam Narrative: Fundus is difficult to palpate. Incision looks fine. Some increase in lochia. Objective Labs Result Diagrams: 04/14/19 04:38 Labs: Laboratory Results - last 24 hr 04/13/19 04/13/19 04/14/19 08:18 08:18 04:38 WBC 6.1 RBC 3.71 L Hgb 11.4 L 12.0 Hct 33.2 L 35.4 L MCV 89.5 MCH 30.7 MCHC 34.4 RDW 14.0 Plt Count 224 Neut % (Auto) 53.2 Lymph % (Auto) 35.6 [place] % (Auto) 9.9 Eos % (Auto) 0.9 L Baso % (Auto) 0.4 Neut # (Auto) 3200 Lymph # (Auto) 2200 [place] # (Auto) 600 Eos # (Auto) 100 Baso # (Auto) 0 Blood Type O Negative Antibody Screen Positive Antibody Identification Anti-D Assessment & Plan Plan day: 1 plan OB: routine care Comments: Some increase in lochia with a history of hemorrhage Plan is to give IM Methergine and p.o. Methergine and observation Time Spent With Patient Total time spent is greater than 50% in coordination of care (as documented) at patient's floor/unit and/or counseling patient: less than 15 minutes
[2019-04-14] MEDS: METHYLERGONOVINE 0.2 MG/ML VIAL IM (09:03)
[2019-04-14] MEDS: METHYLERGONOVINE 0.2 MG TABLET PO (17:17)
[2019-04-15] MEDS: IBUPROFEN 600 MG TABLET PO ×2 (03:03→08:42)
[2019-04-15 08:41] VITALS: TEMP 36.4
[2019-04-15] MEDS: OXYCODONE/ACETAMINOPHEN 5/325 TABLET 2 TAB PO (08:41)
[2019-04-15] MEDS: DOCUSATE 250 MG CAPSULE PO (08:42)
[2019-04-15] MEDS: PRENATAL VIT,CALC/IRON/FOLIC 1 TABLET 1 TAB PO (08:42)
--- NOTE | 2019-04-15 09:21 | P.DS_ITS ---
Discharge Providers Date of admission: 04/13/19 07:11 Discharge Date: 04/15/19 Primary care physician: ANNA Abel Consults: 04/13/19 07:26 Consult to Anesthesiology Urgent Comment: Consulting Provider: Anesthesiologist Reason for consultation: epidural placement Has provider been notified: Yes 04/13/19 18:22 Consult to Senior Electrical Design Engineer Routine Comment: Discharge provider: Ray Owen MD Summary Date Patient Seen: 04/15/19 Time Patient Seen: 09:17 Procedures: Spontaneous vaginal delivery Bilateral tubal ligation Hospital Course: The patient is a 33-year-old delivered spontaneously without difficulty. The baby was given up for adoption to members of her family. Because of drug issues. The patient underwent bilateral tubal ligation. Post delivery and post tubal ligation the patient did well and had no major problems. Peripartum Data Infant Delivery Method: Natural Vaginal Laceration description: None Procedures: Spontaneous vaginal delivery complications: none Status at Discharge Cognitive/behavioral status at discharge: oriented Functional status at discharge: independent ambulation Overall status at discharge: patient is progressing back to baseline Time Spent with Patient Total time spent providing and/or coordinating discharge services: Objective Labs Result Diagrams: 04/14/19 04:38 Exam Vital Signs (past 8 hours): - 04/15/19 08:41 Temperature 97.6 F Oxygen Delivery Method Room Air Narrative Exam Narrative: Fundus U minus four Incision umbilicus looking fine Lochia scant Discharge Plan Discharge Plan Patient Disposition: Home Discharge comment: Call with fever, chills, redness or drainage around incision or bleeding vaginally more than a pad in an hour Discharge Med Rec/Prescriptions Prescriptions: New oxycodone-acetaminophen [Percocet] 5-325 mg tablet 1 tab PO Q4-6H PRN (Reason: pain) Qty: 20 RF: 0 ibuprofen 600 mg tablet 600 mg PO Q6H PRN (Reason: cramping) Qty: 30 RF: 0 Continued prenat.vits,anton,puu-vqci-gqatf tablet 1 tab PO DAILY Qty: 30 RF: 0 Follow up/Referrals: Cheryl Castanon MD [Physician] - 2 Weeks (Incision check) Provider Discharge Instructions Diet: Regular Activity: No intercourse Skin/Wound/Dressing Care Report to your healthcare provider any signs of infection, such as:: chills, fever, increased pain, unusual drainage and unusual redness Dressing: Remove outer plastic dressing and guaze after first shower Visit Report/Discharge Packet Instructions: DI for Tubal Ligation, DI for Labor and Delivery, Vaginal Discharge Data Primary Care Provider: Aydee Sands Attending Provider: Cheryl Castanon Admit Date/Time: 04/13/19 07:11
[2019-04-15 09:23] VITALS: BP 110/55; PULSE 67; RESP 16; TEMP 36.3
== END 2019-04-15 11:20 | disposition home or self-care (01) | DRG 541 ==
PROVIDERS: Admitting Provider Obstetrics & Gynecology; PCP Internal Medicine; Visit Provider Obstetrics & Gynecology
PROC: 10D07Z6 Extraction of Products of Conception, Vacuum, Via Natural or Artificial Opening (ICD-10-PCS; CPT 58605; principal; 2019-04-13 17:00)
DX: O99.824 Streptococcus B carrier state complicating childbirth (principal); Z3A.39 39 weeks gestation of pregnancy; Z37.0 Single live birth; Z30.2 Encounter for sterilization; O76 Abnormality in fetal heart rate and rhythm complicating labor and delivery
CPT/HCPCS: 01967; 36415; 58605; 59050; 59409; 85014; 85018; 85025; 86850; 86870; 86900; 86901; J1885; J2175; J2210; J2250; J2540; J2590; J2704; J3010

== ENCOUNTER 2019-06-29 09:21 | Emergency (ER) | payer OTHER, MEDICAID, SELFPAY ==
[2019-06-29 09:29] VITALS: BP 115/53; PULSE 96; RESP 20; TEMP 37.6; O2SAT 98; BMI 20.5
--- NOTE | 2019-06-29 09:29 | ED_ITS ---
HPI - General Adult General Chief complaint: Abdominal Pain Stated complaint: l side pain Time Seen by Provider: 06/29/19 09:22 Source: patient Mode of arrival: Ambulatory Limitations: no limitations History of Present Illness HPI narrative: 34-year-old female who is 2 months . Had a spontaneous vaginal delivery. Had a laparoscopic tubal ligation immediately afterwards here for evaluation of 2-3 days of left lower quadrant abdominal pain. States that she was not doing anything extraordinary when the symptoms started. Pain has been consistent since then. No vaginal bleeding. No urinary symptoms. No change in bowel habits. No nausea or vomiting. No other abdominal surgeries accept the tubal ligation. Has not tried anything for symptoms prior to arrival. Related Data Previous Rx's Medication Instructions Recorded prenat.vits,anton,yyf-shty-amafx 1 tab PO DAILY #30 tab 11/13/18 ibuprofen 600 mg PO Q6H PRN #30 tab 04/13/19 Allergies Allergy/AdvReac Type Severity Reaction Status Date / Time oxycodone [From Percocet] AdvReac Intermediate hives,itching, Verified 04/23/19 15:45 throat tightening, chest pain Review of Systems Constitutional Constitutional: Denies fever(s) and Denies headache(s) ENT Ears, Nose, Mouth, and Throat: Denies headache(s) Cardiovascular Cardiovascular: Denies chest pain and Denies dyspnea Respiratory Respiratory: Denies dyspnea Gastrointestinal Gastrointestinal: Reports abdominal pain, Denies change in stool character, Denies nausea and Denies vomiting Genitourinary Genitourinary: Denies urinary frequency, Denies difficulty voiding, Denies dysuria, Denies pelvic pain, Denies urinary hesitancy, Denies urinary urgency and Denies vaginal discharge Musculoskeletal Musculoskeletal: Denies myalgias and Denies arthralgias Integumentary/Breasts Skin/Breast: Denies rash Neurologic Neurologic: Denies headache(s) Hematologic/Lymphatic Hematologic/Lymphatic: Denies easy bleeding and Denies easy bruising Allergic/Immunologic Allergic/Immunologic: Denies urticaria [facility] Medical History Adjustment disorder (Inactive) Drug abuse (Inactive) 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) Suicidal ideation (Inactive) Surgical History Status post dilation and curettage Family History (Updated 03/03/17 @ 00:00 by Conversion Provider) Grandfather Prostate cancer Grandmother Breast cancer Diabetes mellitus Mother Chronic hepatitis B with cirrhosis Social History Smoking Status: Never smoker alcohol intake: current Family History (Updated 03/03/17 @ 00:00 by Conversion Provider) Grandfather Prostate cancer Grandmother Breast cancer Diabetes mellitus Mother Chronic hepatitis B with cirrhosis Social History Smoking Status: Never smoker alcohol intake: current Exam Initial Vital Signs Initial Vital Signs: Vital Signs Temperature 99.6 F 06/29/19 09:29 Pulse Rate 96 H 06/29/19 09:29 Respiratory Rate 20 06/29/19 09:29 Blood Pressure 115/53 L 06/29/19 09:29 Pulse Oximetry 98 06/29/19 09:29 Resp Effort & Inspection: normal respiratory effort Auscultation: clear to auscultation bilaterally Cardio Rate: regular rate Rhythm: regular rhythm GI Inspection: non-distended Palpation: soft, No firm and tender (Left lower quadrant) Back/Spine/Pelvis Back: CVA tenderness left Skin Lesions: no lesions Rashes: no rashes Neuro General: alert and awake Cognition: normal cognition Speech: speech normal Extrem General: normal to inspection and capillary refill normal Psych Appearance: grossly normal and well kempt Course Orders Ordered: ED Orders 06/29/19 09:36 Complete Blood Count AUTO DIFF Stat Comprehensive Metabolic Panel Stat Lipase Stat 06/29/19 10:30 Urine Culture Stat Urine Microscopic Stat 06/29/19 10:46 CT abdomen pelvis w con Stat Discontinued Medications Sodium Chloride (Normal Saline 0.9%) 1,000 mls @ 1,000 mls/hr IV BOLUS ONE Stop: 06/29/19 10:28 Last Infusion: 06/29/19 10:38 Dose: 0 mls/hr Documented by: Admin: 06/29/19 09:36 Dose: 1,000 mls/hr Documented by: LISSETH Ketorolac Tromethamine (Toradol) 30 mg IV NOW ONE Stop: 06/29/19 09:41 Last Admin: 06/29/19 09:45 Dose: 30 mg Documented by: HFARRINGTO Vital Signs Vital signs: Vital Signs - 8 hr 06/29/19 09:29 Temperature 99.6 F Pulse Rate 96 H Respiratory Rate 20 Blood Pressure 115/53 L Pulse Oximetry 98 Medical Decision Making Lab Data Lab results reviewed: Yes I reviewed the patient's lab results. Result diagrams: 06/29/19 09:36 06/29/19 09:36 Labs: Lab Results 06/29/19 06/29/19 06/29/19 Range/Units 09:36 09:36 10:30 WBC 13.6 H (4.5-11.0) X10^3/uL RBC 4.63 (4.0-5.2) X10^6/uL Hgb 13.8 (12.0-16.0) g/dL Hct 42.1 (36-46) % MCV 90.8 (80-100) fL MCH 29.9 (26-34) PG MCHC 32.9 (30-36) % RDW 14.9 H (11.6-14.8) % Plt Count 223 (150-400) X10^3/uL Neut % (Auto) 77.2 H (50-75) % Lymph % (Auto) 11.8 L (25-40) % [place] % (Auto) 10.7 (3-14) % Eos % (Auto) 0.1 L (2-4) % Baso % (Auto) 0.2 (0-2) % Neut # (Auto) 44111 H (2857-7282) /uL Lymph # (Auto) 1600 (8611-6748) /uL [place] # (Auto) 1500 H (0-900) /uL Eos # (Auto) 0 (0-450) /uL Baso # (Auto) 0 (0-100) /uL Sodium 139 (137-145) mmol/L Potassium 3.9 (3.4-5.1) mmol/L Chloride 104 (98-107) mmol/L Carbon Dioxide 24 (22-32) mmol/L BUN 16 (7-17) mg/dL Creatinine 0.70 (0.52-1.04) mg/dL Estimated GFR > 60.0 (>60) mL/min BUN/Creatinine Ratio 22.9 H (6-22) Glucose 108 H (70-100) mg/dL Calcium 9.4 (8.4-10.2) mg/dL Total Bilirubin 0.7 (0.2-1.3) mg/dL AST 18 (14-36) IU/L ALT 14 (9-52) IU/L Alkaline Phosphatase 67 (38-126) U/L Total Protein 7.6 (6.3-8.2) g/dL Albumin 4.3 (3.5-5.0) g/dL Globulin 3.3 (1.7-4.1) g/dL Albumin/Globulin Ratio 1.3 (1.0-2.8) Lipase 59 (23-300) U/L Urine RBC 1-5/hpf (0-5/HPF) Urine WBC 5-10/hpf H (0-5/HPF) Ur Squamous Epith Cells 1-5 /hpf (0-5/HPF) Urine Bacteria Many (>30) H (None) Urine Mucus 1+ H (Negative) Ur Culture Indicated? Specimen cultured Point of Care Testing Test Results Negative Urine Dip Bedside Urine Glucose Negative Bedside Urine Bilirubin ++ 2 Bedside Urine Ketone +/- 5 Urine Specific [place] 1.030 Bedside Urine Occult Blood +/- Bedside Urine pH 6.0 Bedside Urine Protein +/- 15 Bedside Urine Urobilinogen - Negative Bedside Urine Nitrite - Negative Bedside Urine Leukocytes +++ 500 Esterase Point of care testing: Point of Care Testing Test Results Negative Urine Dip Bedside Urine Glucose Negative Bedside Urine Bilirubin ++ 2 Bedside Urine Ketone +/- 5 Urine Specific [place] 1.030 Bedside Urine Occult Blood +/- Bedside Urine pH 6.0 Bedside Urine Protein +/- 15 Bedside Urine Urobilinogen - Negative Bedside Urine Nitrite - Negative Bedside Urine Leukocytes +++ [address] scan - abdomen: Radiologist's impression: [place] [address] CT Scan Report Signed Patient: Marcos Olivarez KMR#: [id number] : 1985Acct:[id number] Age/Sex: 34 / FDate of Service: 06/29/19 Loc: ED Accession Number: [id number] Procedure: CT abdomen pelvis w con Ordering Provider: Bob Camargo D.O. PROCEDURE: CT ABDOMEN PELVIS W CON INDICATIONS: Left-sided abdominal pain TECHNIQUE: After the administration of intravenous contrast, 5 mm thick sections acquired from the diaphragm to the symphysis. 5 mm coronal and sagittal reformats were acquired. For radiation dose reduction, the following was used: automated exposure control, adjustment of mA and/or kV according to patient size. COMPARISON: None. FINDINGS: Image quality: Excellent. ABDOMEN: Lung bases: 4-5 mm edv-ivxhd-kczxiwbzo nodular density in lateral aspect of right lower lobe is seen. No pleural effusion or pneumothorax Heart size is normal. Solid organs: Liver is normal in size and enhancement. Gallbladder is within normal limits. Biliary system is non dilated. Pancreas enhances normally. Spleen is normal in size and enhancement. No adrenal nodules. Kidneys demonstrate normal size and enhancement, without hydronephrosis. Peritoneum and bowel: There is no evidence of bowel obstruction. No stomach or small bowel wall thickening. Marked wall thickening and pericolonic fat stranding involving the proximal to midportion of descending colon is seen. No other area of abnormal colonic wall thickening. Fecal stasis in the colon is seen. No free fluid of free air. Nodes and vessels: No retroperitoneal or mesenteric adenopathy by size criteria. Aorta and inferior vena cava are normal in size. Miscellaneous: No ventral hernias. PELVIS: Genitourinary: Bladder wall thickness is normal. Miscellaneous: No inguinal hernias or adenopathy. Bones: No suspicious bony lesions. No vertebral body compression fractures. IMPRESSION: 1. Finding is suggestive of infectious or inflammatory colitis involving proximal to mid descending colon. No bowel obstruction. No free fluid or free air. 2. 4-5 mm hdv-zrhrg-mxritqztz nodular density in lateral aspect of right lower lobe. Consider CT of chest followup in 12 months. Dictated by: Laurent Coates M.D. on 06/29/2019 at 11:02 Approved by: Laurent Coates M.D. on 06/29/2019 at 11:05 [facility] Narrative Medical decision making narrative: Patient's CT scan does show a colitis. She has no risk factors to include camping, antibiotic use, travel, drinking untreated water. She also has urinary frequency but no other urinary tract symptoms. She states she has had multiple urinary tract infections in the past and this does not feel like a urinary tract infection. We will hold on antibiotics for now. A urine culture was pending. Patient was informed of this. We will call for any positive results and start antibiotics at that time. Given her history patient will take Tylenol/ibuprofen for any discomfort. Despite her allergy list patient states she is not allergic to Tylenol. Will hold on further workup for now. Patient was given strict return precautions and follow-up instructions. She expressed understanding and agreement with plan. Discharge Plan Departure Patient Disposition: Home Clinical Impression: Colitis, Abdominal pain Instructions: DI for Colitis Activity Restrictions/Additional Instructions: Be sure to stay hydrated. You can take Tylenol and/or ibuprofen for any abdominal discomfort. Do not be surprised if you develop diarrhea in the next couple days. This does not mean that your symptoms are worsening. A urine culture was pending at the time of her discharge. We will call for any positive results and if we need to start any antibiotics. Contact your primary provider for a follow-up. Return to the emergency department for any new or worsening symptoms Prescriptions: No Action ibuprofen 600 mg tablet 600 mg PO Q6H PRN (Reason: cramping) Qty: 30 RF: 0 prenat.vits,anton,gyu-zhmt-mhzwx tablet 1 tab PO DAILY Qty: 30 RF: 0 Referrals: Aydee Sands ARNP [Primary Care Provider] -
[2019-06-29] MEDS: SODIUM CHLORIDE 0.9% 1,000 ML 1000 ML IV (09:36)
[2019-06-29] MEDS: KETOROLAC 60 MG/2 ML VIAL 30 MG IV (09:45)
[2019-06-29 09:46] LABS: Add Manual Diff / Slide Review NO; Basophils Absolute Auto 0 /uL (0-100); Basophils Percent Auto 0.2 % (0-2); Eosinophils Absolute Auto 0 /uL (0-450); Eosinophils Percent Auto 0.1 % (2-4); Hematocrit 42.1 % (36-46); Hemoglobin 13.8 g/dL (12.0-16.0); Lymphocytes Absolute Auto 1600 /uL (1100-4500); Lymphocytes Percent Auto 11.8 % (25-40); Mean Corpuscular HGB Conc 32.9 % (30-36); Mean Corpuscular Hemoglobin 29.9 PG (26-34); Mean Corpuscular Volume 90.8 fL (80-100); Monocytes Absolute Auto 1500 /uL (0-900); Monocytes Percent Auto 10.7 % (3-14); Neutrophils Absolute Auto 10500 /uL (1500-7000); Neutrophils Percent Auto 77.2 % (50-75); Platelet Count 223 X10^3/uL (150-400); Red Blood Cell Count 4.63 X10^6/uL (4.0-5.2); Red Cell Distribution Width 14.9 % (11.6-14.8); White Blood Cell Count 13.6 X10^3/uL (4.5-11.0)
[2019-06-29 09:58] LABS: Alanine Aminotransferase 14 IU/L (9-52); Albumin 4.3 g/dL (3.5-5.0); Albumin Globulin Ratio 1.3 (1.0-2.8); Alkaline Phosphatase 67 U/L (38-126); Aspartate Aminotransferase 18 IU/L (14-36); BUN Creatinine Ratio 22.9 (6-22); Bilirubin Total 0.7 mg/dL (0.2-1.3); Blood Urea Nitrogen 16 mg/dL (7-17); Calcium 9.4 mg/dL (8.4-10.2); Carbon Dioxide 24 mmol/L (22-32); Chloride 104 mmol/L (98-107); Estimated Glomerular Filt Rate > 60.0 mL/min (>60); Globulin 3.3 g/dL (1.7-4.1); Glucose 108 mg/dL (70-100); HEMOLYSIS < 15 (0-50); Lipase 59 U/L (23-300); Potassium 3.9 mmol/L (3.4-5.1); Sodium 139 mmol/L (137-145); Total Protein 7.6 g/dL (6.3-8.2)
--- NOTE | 2019-06-29 10:46 | DI.CT.S_ITS ---
PROCEDURE: CT ABDOMEN PELVIS W CON INDICATIONS: Left-sided abdominal pain TECHNIQUE: After the administration of intravenous contrast, 5 mm thick sections acquired from the diaphragm to the symphysis. 5 mm coronal and sagittal reformats were acquired. For radiation dose reduction, the following was used: automated exposure control, adjustment of mA and/or kV according to patient size. COMPARISON: None. FINDINGS: Image quality: Excellent. ABDOMEN: Lung bases: 4-5 mm rsm-bqpcb-xpbldvegz nodular density in lateral aspect of right lower lobe is seen. No pleural effusion or pneumothorax Heart size is normal. Solid organs: Liver is normal in size and enhancement. Gallbladder is within normal limits. Biliary system is non dilated. Pancreas enhances normally. Spleen is normal in size and enhancement. No adrenal nodules. Kidneys demonstrate normal size and enhancement, without hydronephrosis. Peritoneum and bowel: There is no evidence of bowel obstruction. No stomach or small bowel wall thickening. Marked wall thickening and pericolonic fat stranding involving the proximal to midportion of descending colon is seen. No other area of abnormal colonic wall thickening. Fecal stasis in the colon is seen. No free fluid of free air. Nodes and vessels: No retroperitoneal or mesenteric adenopathy by size criteria. Aorta and inferior vena cava are normal in size. Miscellaneous: No ventral hernias. PELVIS: Genitourinary: Bladder wall thickness is normal. Miscellaneous: No inguinal hernias or adenopathy. Bones: No suspicious bony lesions. No vertebral body compression fractures. IMPRESSION: 1. Finding is suggestive of infectious or inflammatory colitis involving proximal to mid descending colon. No bowel obstruction. No free fluid or free air. 2. 4-5 mm qew-kebaq-ojfkwsjyg nodular density in lateral aspect of right lower lobe. Consider CT of chest followup in 12 months. Dictated by: Laurent Coates M.D. on 06/29/2019 at 11:02 Approved by: Laurent Coates M.D. on 06/29/2019 at 11:05
[2019-06-29 11:12] LABS: RBC Urine 1-5/HPF (0-5/HPF); Squamous Epithelial Cell Urine 1-5 /HPF (0-5/HPF); WBC Urine 5-10/HPF (0-5/HPF)
[2019-06-29 11:13] LABS: Bacteria Urine Many (>30); Culture Indicated Urine Specimen Cultured; Mucus Urine 1+ (Negative)
[2019-06-29 11:31] VITALS: BP 101/38; PULSE 77; RESP 16; O2SAT 99
== END 2019-06-29 11:43 | disposition home or self-care (01) ==
PROVIDERS: Emergency Provider Emergency Medicine; PCP Internal Medicine
DX: K52.9 Noninfective gastroenteritis and colitis, unspecified (principal); R10.9 Unspecified abdominal pain
CPT/HCPCS: 36415; 74177; 80053; 81003; 81015; 81025; 83690; 85025; 87077; 87086; 87186; 96361; 96374; 99283; 99284; J1885; Q9967

== ENCOUNTER 2021-09-01 18:14 | Emergency (ER) | payer OTHER, MEDICAID, SELFPAY ==
[2021-09-01 18:19] VITALS: BP 121/92; PULSE 113; RESP 18; TEMP 36.6; O2SAT 99; BMI 18.8
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
--- NOTE | 2021-09-01 18:37 | PC.NURSE ---
conducted the triage with LARISSA Corona at pt side.
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
[2021-09-01] MEDS: LORazepam 0.5 MG TABLET 1 MG PO (19:17)
--- NOTE | 2021-09-01 19:26 | PC.NURSE ---
Pt has been clean and sober for several years and 3 days ago relapsed. Has done meth today. Pt appears paranoid and anxious. CONSTRUCTION HELPER involved
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
--- NOTE | 2021-09-01 19:59 | PC.NURSE ---
Pt states she is feeling better after the ativan. pt very involved in her phone
[2021-09-01 20:01] VITALS: PULSE 104; RESP 18; O2SAT 97
== END 2021-09-01 20:02 | disposition home or self-care (01) ==
PROVIDERS: Emergency Provider Emergency Medicine; PCP Registered Nurse
DX: F41.9 Anxiety disorder, unspecified (principal)
CPT/HCPCS: 99283

== ENCOUNTER 2021-09-19 00:02 | Emergency (ER) | payer OTHER, MEDICAID, SELFPAY ==
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
[2021-09-19 00:25] VITALS: BP 160/88; PULSE 54; RESP 20; TEMP 36.8; O2SAT 98; BMI 17.2
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
[2021-09-19] MEDS: LORazepam 0.5 MG TABLET 1 MG PO (02:02)
[2021-09-19 03:38] VITALS: BP 143/89; PULSE 68; RESP 20; O2SAT 98
== END 2021-09-19 03:43 | disposition home or self-care (01) ==
PROVIDERS: Emergency Provider Emergency Medicine; PCP Registered Nurse
DX: F41.9 Anxiety disorder, unspecified (principal); R44.0 Auditory hallucinations; R44.1 Visual hallucinations; F15.90 Other stimulant use, unspecified, uncomplicated
CPT/HCPCS: 99283

== ENCOUNTER → 2022-02-16 14:57 | Outpatient (CLI) | payer OTHER, MEDICAID, SELFPAY ==
--- NOTE | 2022-02-16 14:58 | DI.CT.S_ITS ---
PROCEDURE: CT CHEST W CON INDICATIONS: Clinical concern for out lung mass TECHNIQUE: After the administration of intravenous contrast, 5 mm thick sections acquired from the pulmonary apices to the posterior costophrenic angles. 1 mm axial lung, 5 mm thick coronal and sagittal reformats and 7 mm axial MIP were acquired. For radiation dose reduction, the following was used: automated exposure control, adjustment of mA and/or kV according to patient size. COMPARISON: None. FINDINGS: Image quality: Excellent. Lungs and pleura: No acute air space opacities. No pleural effusions or pneumothorax. Central and peripheral airways are patent and normal in caliber. Mediastinum: Heart size is normal. No pericardial effusion. No mediastinal or hilar adenopathy by size criteria. Thoracic aorta and central pulmonary arteries are normal in size. No filling defects are seen to suggest pulmonary embolism. Esophagus is normal in caliber. No hiatal hernia. Bones and chest wall: No suspicious bony lesions. No vertebral body compression fractures. No axillary or supraclavicular adenopathy by size criteria. Thyroid gland demonstrates no significant abnormality. Abdomen: Visualized upper abdominal solid organs appear normal. Upper abdominal bowel loops are normal in caliber. IMPRESSION: Normal lungs, without masses seen. Dictated by: Oscar Carias M.D. on 02/16/2022 at 15:30 Approved by: Oscar Carias M.D. on 02/16/2022 at 15:33
== END ==
PROVIDERS: PCP Registered Nurse; Referring Provider Internal Medicine; Visit Provider Internal Medicine
DX: R91.8 Other nonspecific abnormal finding of lung field (principal); R63.4 Abnormal weight loss
CPT/HCPCS: 71260; Q9967

== ENCOUNTER 2022-03-29 08:03 | Emergency (ER) | payer OTHER, MEDICAID, SELFPAY ==
[2022-03-29 08:13] VITALS: BP 124/57; PULSE 62; RESP 18; TEMP 36.4; O2SAT 99; BMI 18.7
--- NOTE | 2022-03-29 09:01 | ED.DENTAL ---
HPI - Dental/Oral General Chief complaint: Dental/Oral Stated complaint: Tooth pain Time Seen by Provider: 03/29/22 08:51 Source: patient Mode of arrival: Ambulatory History of Present Illness HPI Narrative: Patient is a 36-year-old female who has chronic ongoing dental pain she had a procedure 3 days ago. Having increased pain in her right lower area. No swelling no fever. She thinks she needs antibiotic. Teeth map: 1. pain cavity. no abcess Related Data Previous Rx's Medication Instructions Recorded prenat.vits,anton,mks-jpvo-xildx 1 tab PO DAILY #30 tabs 11/13/18 ibuprofen 600 mg tablet 600 mg PO Q6H PRN cramping #30 tabs 04/13/19 amoxicillin 500 mg capsule 500 mg PO BID #14 caps 03/29/22 Allergies Allergy/AdvReac Type Severity Reaction Status Date / Time oxycodone [From Percocet] AdvReac Intermediate hives,itching, Verified 03/29/22 08:13 throat tightening, chest pain Review of Systems Review of Systems Narrative: GENERAL: Denies chills,fever HEENT: See HPI RESPIRATORY: Denies dyspnea, cough, wheezing CARDIOVASCULAR: Denies chest pain, palpitations GASTROINTESTINAL: Denies nausea, vomiting MUSCULOSKELETAL: Denies extremity pain, injury SKIN: No rash, no laceration, no pruritus NEUROLOGIC: Denies weakness, dizziness, headache, numbness 8 point review of systems is negative except for those stated above and HPI Patient History Medical History (Updated 03/29/22 @ 09:11 by Jenn Markham DO) Adjustment disorder Drug abuse History of drug abuse in remission Suicidal ideation Surgical History Status post dilation and curettage Family History Grandfather Prostate cancer Grandmother Breast cancer Diabetes mellitus Mother Chronic hepatitis B with cirrhosis Social History Smoking Status: Current every day smoker alcohol intake: current Smoking Status: Current every day smoker tobacco type: vaping alcohol intake frequency: 0-2 drinks per day Substance Use Type: amphetamines and methamphetamine Exam Initial Vital Signs Initial Vital Signs: Vital Signs Temperature 97.6 F 03/29/22 08:13 Pulse Rate 62 03/29/22 08:13 Respiratory Rate 18 03/29/22 08:13 Blood Pressure 124/57 L 03/29/22 08:13 Pulse Oximetry 99 03/29/22 08:13 Oxygen Delivery Method 03/29/22 08:13 GENERAL: Well-appearing, well-nourished and in no acute distress. Mouth: No dental abscess no significant swelling no erythema multiple caries no complication from recent dental procedure appreciated CARDIOVASCULAR: peripheral pulses in tact, cap refill <2 sec RESPIRATORY: No respiratory distress, speaks in full sentences without difficulty EXTREMITIES: Normal range of motion, no clubbing or edema. Neurovascularly intact NEUROLOGICAL: Cranial nerves II through XII grossly intact. Normal gait and speech. SKIN: Warm, dry, no petechiae, no rashes or lesions. Procedures Nerve Block Nerve Block 1: Local Anesthetic: bupivacaine 0.25% and with epi Amount of anesthesia used (mL): 2 Intraoral Nerve Block: supraperiosteal Complications: none Course Orders Ordered: Discontinued Medications Bupivacaine HCl (Bupivacaine 0.5% (Pf) Vial) 5 ml SUBCUT NOW ONE Stop: 03/29/22 09:16 Last Admin: 03/29/22 09:21 Dose: 5 ml Documented By: TEO Ibuprofen (Ibuprofen 400 Mg Tablet) 800 mg PO NOW ONE Stop: 03/29/22 09:03 Last Admin: 03/29/22 09:10 Dose: 800 mg Documented By: TEO Lidocaine/Epinephrine (Lidocaine 1% W/Epi) 1 ml SUBCUT NOW ONE Stop: 03/29/22 09:03 Last Admin: 03/29/22 09:14 Dose: Not Given Documented By: TEO Vital Signs Vital signs: Vital Signs - 8 hr 03/29/22 08:13 Temperature 97.6 F Pulse Rate 62 Respiratory Rate 18 Blood Pressure 124/57 L Pulse Oximetry 99 Oxygen Delivery Method Room Air MDM - Dental/Oral MDM Narrative Medical decision making narrative: The patient received a dental block with bupivacaine and epinephrine. She had minimal relief with it. No sign of a dental abscess. Will start her on amoxicillin. She is to call her dentist when they open later today. She has been taking Tylenol without any relief recommend taking Tylenol and ibuprofen. Discharge Plan Departure Patient Disposition: Home Clinical Impression: Pain, dental Instructions: DI for Dental Pain Activity Restrictions/Additional Instructions: *You have been diagnosed with dental pain *What to do: No please call your dentist to schedule follow-up. *Continue to take medications as directed Amoxicillin 500 mg twice a day for 1 week --> sent to [facility] Tylenol 1000 mg every 6 hours if needed for tjlu-ds-[id number] pain Ibuprofen/Motrin 800 mg every 8 hours if needed for lrwn-[id number] pain *Follow up with your primary care provider in 2-3 days or call [phone] *Return to ER if you should have increasing pain swelling, redness, difficulty breathing or any new, worsening or concerning symptoms Prescriptions: New amoxicillin 500 mg capsule 500 mg PO BID Qty: 14 0RF No Action ibuprofen 600 mg tablet 600 mg PO Q6H PRN (Reason: cramping) Qty: 30 0RF prenat.vits,anton,[id number]-sdlj-yccki tablet 1 tab PO DAILY Qty: 30 0RF Referrals: Aydee Sands ARNP [Primary Care Provider] - Visit Report Forms: Patient Portal/API
[2022-03-29] MEDS: IBUPROFEN 400 MG TABLET 800 MG PO (09:10)
[2022-03-29] MEDS: BUPIVACAINE 0.5% (PF) VIAL 5 ML SUBCUT (09:21)
[2022-03-29 09:29] VITALS: PULSE 79; RESP 20; O2SAT 100
== END 2022-03-29 09:30 | disposition home or self-care (01) ==
PROVIDERS: Emergency Provider Emergency Medicine; PCP Internal Medicine
DX: K08.89 Other specified disorders of teeth and supporting structures (principal)
CPT/HCPCS: 64450; 99283

== ENCOUNTER 2022-06-17 15:51 | Emergency (ER) | payer OTHER, MEDICAID, SELFPAY ==
[2022-06-17 16:25] VITALS: BP 113/55; PULSE 66; RESP 19; TEMP 35.8; O2SAT 99; BMI 18.3
--- NOTE | 2022-06-17 19:16 | ED.DENTAL ---
HPI - Dental/Oral <ANNA Oakley - Last Filed: 06/17/22 20:50> General Chief complaint: Dental/Oral Stated complaint: Thinks asbcess lower jaw Time Seen by Provider: 06/17/22 18:49 Source: patient Mode of arrival: Family Vehicle History of Present Illness HPI Narrative: This is a 37-year-old female in the emergency department with history of dental caries, loose cavities and states she is concerned about an abscess on the lower jaw with worsening pain over the last few days. Patient has a history of anxiety and states that she has episodes of chest tightness and heart racing which come out of no where. She denies fever, chills, abdominal pain, swelling in her mouth, or any discharge coming from her dental caries. She states she has multiple dental caries and some loose cavities on the left, has a history of amphetamine use. She states that she can not go to [facility] dental [facility] until next month. Patient denies any history of allergies, states that she has been taking some medication for pain and states that she is allergic to oxycodone with hives. Related Data Previous Rx's Medication Instructions Recorded prenat.vits,anton,[id number] 1 tab PO DAILY #30 tabs 11/13/18 ibuprofen 600 mg tablet 600 mg PO Q6H PRN cramping #30 tabs 04/13/19 amoxicillin 500 mg capsule 500 mg PO BID #14 caps 03/29/22 acetaminophen 650 mg 650 mg PO Q6HR PRN pain #30 tabs 06/17/22 tablet,extended release (Tylenol 8 Hour) chlorhexidine gluconate 0.12 % 15 ml buccal DAILY #118 mL 06/17/22 mouthwash hydroxyzine HCl 25 mg tablet 25 mg PO BID PRN anxiety, heart 06/17/22 racing #14 tabs Allergies Allergy/AdvReac Type Severity Reaction Status Date / Time oxycodone [From Percocet] AdvReac Intermediate hives,itching, Verified 06/17/22 16:45 throat tightening, chest pain Review of Systems <ANNA Oakley - Last Filed: 06/17/22 20:50> Review of Systems Narrative: Review of systems is negative for acute abnormalities unless otherwise noted in HPI Patient History <ANNA Oakley - Last Filed: 06/17/22 20:50> Medical History Adjustment disorder Drug abuse History of drug abuse in remission Suicidal ideation Surgical History Status post dilation and curettage Family History Grandfather Prostate cancer Grandmother Breast cancer Diabetes mellitus Mother Chronic hepatitis B with cirrhosis Social History Smoking Status: Current every day smoker alcohol intake: current Smoking Status: Current every day smoker tobacco type: cigarettes and vaping alcohol intake frequency: 0-2 drinks per day Substance Use Type: former substance user, amphetamines and methamphetamine Exam <ANNA Oakley - Last Filed: 06/17/22 20:50> Narrative Exam Narrative: Reviewed vitals signs and nursing notes. General: cooperative, comfortable, in no acute distress, well groomed, afebrile HEENT: symmetrical facial expressions, moist mucous membranes, multiple dental caries, lower left jaw with multiple caries, some of them are loose. No intraoral swelling, palpable abscess, drainage, erythema, no unilateral changes, uvula is midline. Cardiovascular: regular rate and rhythm, no peripheral edema, warm extremities Respiratory: normal effort, able to speak in complete sentences, without wheezing, stridor, or abnormal breath sounds. No retractions or tachypnea. GI: abdomen soft, nontender to palpation, nondistended, without masses, rebound tenderness or exquisite tenderness with exam. MSK: moves all extremities, neurovascularly intact, no weakness, normal tone Skin: brisk capillary refill, without pallor or erythema Neuro: normal speech and cognition, A&O x3, ambulatory, clear speech Psych: mental status is grossly normal, congruent mood, normal affect, pleasant and cooperative Initial Vital Signs Initial Vital Signs: Vital Signs Temperature 96.5 F L 06/17/22 16:25 Pulse Rate 66 06/17/22 16:25 Respiratory Rate 19 06/17/22 16:25 Blood Pressure 113/55 L 06/17/22 16:25 Pulse Oximetry 99 06/17/22 16:25 Oxygen Delivery Method 06/17/22 16:25 <Dyan Dewitt DO - Last Filed: 06/27/22 05:46> Initial Vital Signs Initial Vital Signs: Vital Signs Temperature 96.5 F L 06/17/22 16:25 Pulse Rate 66 06/17/22 16:25 Respiratory Rate 19 06/17/22 16:25 Blood Pressure 113/55 L 06/17/22 16:25 Pulse Oximetry 99 06/17/22 16:25 Oxygen Delivery Method 06/17/22 16:25 Course <ANNA Oakley - Last Filed: 06/17/22 20:50> Orders Ordered: Discontinued Medications Acetaminophen (Acetaminophen 325 Mg Tablet) 975 mg PO NOW ONE Stop: 06/17/22 19:11 Last Admin: 06/17/22 19:31 Dose: 975 mg Documented By: MARTÍN Amoxicillin/Clavulanate Potassium (Amoxicillin/Clav 875/125 Mg) 1 tab PO NOW ONE Stop: 06/17/22 19:11 Last Admin: 06/17/22 19:32 Dose: 1 tab Documented By: MARTÍN Ketorolac Tromethamine (Ketorolac 30 Mg/Ml Vial) 15 mg IM NOW ONE Stop: 06/17/22 19:11 Last Admin: 06/17/22 19:31 Dose: 15 mg Documented By: MARTÍN Vital Signs Vital signs: Vital Signs - 8 hr 06/17/22 16:25 Temperature 96.5 F L Pulse Rate 66 Respiratory Rate 19 Blood Pressure 113/55 L Pulse Oximetry 99 Oxygen Delivery Method Room Air <Dyan Dewitt DO - Last Filed: 06/27/22 05:46> Orders Ordered: Discontinued Medications Acetaminophen (Acetaminophen 325 Mg Tablet) 975 mg PO NOW ONE Stop: 06/17/22 19:11 Last Admin: 06/17/22 19:31 Dose: 975 mg Documented By: MARTÍN Amoxicillin/Clavulanate Potassium (Amoxicillin/Clav 875/125 Mg) 1 tab PO NOW ONE Stop: 06/17/22 19:11 Last Admin: 06/17/22 19:32 Dose: 1 tab Documented By: MARTÍN Ketorolac Tromethamine (Ketorolac 30 Mg/Ml Vial) 15 mg IM NOW ONE Stop: 06/17/22 19:11 Last Admin: 06/17/22 19:31 Dose: 15 mg Documented By: MARTÍN Vital Signs Vital signs: Vital Signs - 8 hr 06/17/22 16:25 Temperature 96.5 F L Pulse Rate 66 Respiratory Rate 19 Blood Pressure 113/55 L Pulse Oximetry 99 Oxygen Delivery Method Room Air MDM - Dental/Oral <ANNA Oakley - Last Filed: 06/17/22 20:50> MDM Narrative Medical decision making narrative: This is a 37-year-old female with history of methamphetamine use who presents to the emergency department with dental pain and concern for dental infection with multiple dental caries, some of them are loose and states she can not go to [facility] dental [facility] until next month. In the emergency department, she has some erythema and tenderness of the lower left mandible without any palpable abscess or drainage. She was treated with Augmentin, given ketorolac, hydroxyzine as needed for anxiety and pain, and Tylenol. She understands to follow-up at the [facility] dental [facility], come back for any worsening of her symptoms especially for fever, chills or swelling to her face. Patient is appropriate and amenable to discharge home. Vital signs are stable on repeat examination is unremarkable. Patient has been informed of results. Patient has been given strict return to ER precautions for any new or worsening symptoms. Patient understands to follow up closely with outpatient providers as instructed. Patient understands plan and agrees to discharge home. All questions and concerns answered at this time. Discharge Plan Departure Patient Disposition: Home Clinical Impression: Dental caries, Dental infection, Toothache Instructions: Tooth Decay, DI for Dental Pain, Healthy Snacks to Prevent Tooth Decay in Kids Activity Restrictions/Additional Instructions: *You have been diagnosed with a dental infection which could be inflammation related to dental caries and decay but this could be a skin infection as well and if this gets any worse and you have swelling of your face, please come back for another evaluation. Please start this antibiotic, return to the emergency department for any worsening symptoms. Take Toradol every 8 hours with food and water as needed for your pain, you can take Tylenol in addition to this as needed. Please follow-up with [facility] dental [facility] at your convenience, the nerve root may be inflamed and causing worsening pain. I have sent an antibiotic for the next 7 days to your pharmacy, chlorhexidine oral rinse, hydroxyzine as needed for anxiety, heart racing and chest tightness symptom, ketorolac which you can take instead of ibuprofen and Tylenol extra-strength. Please follow-up with Aydee Sands as needed for any outpatient resources before then and if this is not any better. Thank you for trusting us with your care and I hope you feel better soon. *What to do: *Please continue to take your regular medications as directed. [x ] New medication prescriptions sent to your pharmacy: [[facility] ] [ ] New medication written as a paper prescription [ ] No new medications given *Please follow up with your primary care provider in 2-3 days, call for an appointment. Let them know you were seen in the Emergency Department and that we asked that you be seen for follow-up. We will electronically transmit a record of today's note if your PCP is in our system *If you do not have a primary care provider please contact [phone] to establish care with one of the [facility] primary care providers. *Return to Emergency Department if you should have any new, worsening, or concerning symptoms, such as [fever greater than 101F, chills, worsening pain, persistent vomiting or other bothersome symptoms]. Prescriptions: New chlorhexidine gluconate 0.12 % mouthwash 15 ml buccal DAILY Qty: 118 0RF Rx Instructions: swish and spit acetaminophen [Tylenol 8 Hour] 650 mg tablet extended release 650 mg PO Q6HR PRN (Reason: pain) Qty: 30 0RF hydroxyzine HCl 25 mg tablet 25 mg PO BID PRN (Reason: anxiety, heart racing) Qty: 14 0RF No Action ibuprofen 600 mg tablet 600 mg PO Q6H PRN (Reason: cramping) Qty: 30 0RF prenat.vits,anton,[id number]-[id number] tablet 1 tab PO DAILY Qty: 30 0RF amoxicillin 500 mg capsule 500 mg PO BID Qty: 14 0RF Referrals: Aydee Sands ARNP [Primary Care Provider] - Visit Report Forms: Patient Portal/API <Dyan Dewitt DO - Last Filed: 06/27/22 05:46> Cosign ED Attending [place] Attestation: I was immediately available in the department for consultation. Documentation has been reviewed.
[2022-06-17] MEDS: KETOROLAC 30 MG/ML VIAL 15 MG IM (19:31)
[2022-06-17] MEDS: ACETAMINOPHEN 325 MG TABLET 975 MG PO (19:31)
[2022-06-17] MEDS: AMOXICILLIN/CLAV 875/125 MG 1 TAB PO (19:32)
== END 2022-06-17 19:45 | disposition home or self-care (01) ==
PROVIDERS: Emergency Provider Nurse Practitioner Critical Care Medicine; PCP Internal Medicine
DX: K02.9 Dental caries, unspecified (principal); K08.89 Other specified disorders of teeth and supporting structures
CPT/HCPCS: 96372; 99283; J1885

== ENCOUNTER 2022-07-08 13:22 | Emergency (ER) | payer OTHER, MEDICAID, SELFPAY ==
[2022-07-08] VITALS (26 sets, daily range): BP systolic 102–127; BP diastolic 53–81; PULSE 48–72; RESP 12–22; TEMP 36.8; O2SAT 96–100; BMI 17.2
--- NOTE | 2022-07-08 13:33 | DI.RAD.S_ITS ---
PROCEDURE: XR CHEST 1V INDICATIONS: chest pain TECHNIQUE: One view of the chest was acquired. COMPARISON: [facility], CR, XR CHEST 2V, 11/13/2018, 10:23. FINDINGS: Surgical changes and devices: None. Lungs and pleura: Lungs are clear. No pleural effusions or pneumothorax. Mediastinum: Mediastinal contours appear normal. Heart size is normal. Bones and chest wall: No suspicious bony lesions. Overlying soft tissues appear unremarkable. IMPRESSION: No evidence acute pulmonary process. Dictated by: Lee Orta M.D. on 07/08/2022 at 14:18 Approved by: Lee Orta M.D. on 07/08/2022 at 14:18
[2022-07-08 13:50] LABS: Add Manual Diff / Slide Review NO; Basophils Absolute Auto 0 /uL (0-100); Basophils Percent Auto 0.5 % (0-2); Eosinophils Absolute Auto 100 /uL (0-450); Eosinophils Percent Auto 1.3 % (2-4); Hematocrit 40.8 % (36-46); Hemoglobin 13.6 g/dL (12.0-16.0); Lymphocytes Absolute Auto 1800 /uL (1100-4500); Lymphocytes Percent Auto 31.9 % (25-40); Mean Corpuscular HGB Conc 33.4 % (30-36); Mean Corpuscular Hemoglobin 31.4 PG (26-34); Mean Corpuscular Volume 93.9 fL (80-100); Monocytes Absolute Auto 400 /uL (0-900); Monocytes Percent Auto 7.6 % (3-14); Neutrophils Absolute Auto 3300 /uL (1500-7000); Neutrophils Percent Auto 58.7 % (50-75); Platelet Count 287 X10^3/uL (150-400); Red Blood Cell Count 4.34 X10^6/uL (4.0-5.2); White Blood Cell Count 5.6 X10^3/uL (4.5-11.0)
[2022-07-08 13:56] LABS: INR 1.1 (0.9-1.3); Prothrombin Time 12.8 SECONDS (10.1-12.7)
--- NOTE | 2022-07-08 13:56 | DI.CT.S_ITS ---
PROCEDURE: CT FACIAL BONES W CON INDICATIONS: left jaw swelling TECHNIQUE: After the administration of intravenous contrast, 2.5 mm axial sections acquired from the mid-neck to the frontal sinuses, with coronal and sagittal reformats. For radiation dose reduction, the following was used: automated exposure control, adjustment of mA and/or kV according to patient size. COMPARISON: None. FINDINGS: Image quality: Excellent. Soft tissues: No edema, masses, or fluid collections. No enlarged lymph nodes. Vascular: Visualized vascular structures appear patent throughout. Bony vascular foramina and canals appear normal. Bones: Metallic artifacts from dental fillings obscure adjacent structures. Suspect a dental kasia in the left mandible. Facial bones appear intact, without fractures, erosions, or destruction. Visualized portions of the skull base and auditory canals also appear normal. The temporomandibular joints are anatomically seated bilaterally. 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 Paranasal sinuses are aerated without fluid levels, mucosal thickening, or mucoceles. Mastoid air cells are aerated. IMPRESSION: 1. A cause for left jaw pain/swelling is not identified. 2. Suspect a dental kasia in the left mandible. Recommend correlation with direct visualization. 3. No fluid collection to suggest periidibtak abscess. Dictated by: Angelica Chacon M.D. on 07/08/2022 at 15:08 Approved by: Angelica Chacon M.D. on 07/08/2022 at 15:17
--- NOTE | 2022-07-08 13:56 | ED_ITS ---
HPI - Chest Pain <José Bunch MD - Last Filed: 07/22/22 01:22> General Chief Complaint: Chest Pain Stated Complaint: Pain from neck through spine, vision changes Time Seen by Provider: 07/08/22 13:31 Source: patient Mode of arrival: Ambulatory Limitations: no limitations History of Present Illness HPI narrative: Patient here with partner. Complaints 2 or 3 days off and on bilateral blurry vision with off and on chest discomfort as well as neck and mid thoracic spine pain. No fever chills. Patient has been dealing with dental caries and tooth infections through the summer. Is scheduled later this month to see dental office in [place]. Was seen here middle of last month for dental caries and was placed on Augmentin. No incision drainage of abscess have been done. No histo ry of endocarditis. Related Data Previous Rx's Medication Instructions Recorded prenat.vits,anton,[id number]-[id number] 1 tab PO DAILY #30 tabs 11/13/18 ibuprofen 600 mg tablet 600 mg PO Q6H PRN cramping #30 tabs 04/13/19 amoxicillin 500 mg capsule 500 mg PO BID #14 caps 03/29/22 acetaminophen 650 mg 650 mg PO Q6HR PRN pain #30 tabs 06/17/22 tablet,extended release (Tylenol 8 Hour) chlorhexidine gluconate 0.12 % 15 ml buccal DAILY #118 mL 06/17/22 mouthwash hydroxyzine HCl 25 mg tablet 25 mg PO BID PRN anxiety, heart 06/17/22 racing #14 tabs gabapentin 300 mg capsule 300 mg PO BEDTIME #14 caps 07/08/22 ketorolac 10 mg tablet 10 mg PO Q6H PRN pain #14 tabs 07/08/22 amoxicillin 875 mg-potassium 1 tab PO Q12H #20 tabs 07/10/22 clavulanate 125 mg tablet ketorolac 10 mg tablet 10 mg PO Q6H PRN pain #14 tabs 07/11/22 Allergies Allergy/AdvReac Type Severity Reaction Status Date / Time oxycodone [From Percocet] AdvReac Intermediate hives,itching, Verified 07/08/22 13:34 throat tightening, chest pain Review of Systems <José Bunch MD - Last Filed: 07/22/22 01:22> Review of Systems Narrative: GENERAL: Denies chills, fatigue, malaise, fever, sweats. HEENT: Denies sinus pain, ear pain, sore throat, positive dental pain RESPIRATORY: Denies dyspnea, cough CARDIOVASCULAR: Denies chest pain, palpitations GASTROINTESTINAL: Denies nausea, vomiting, abdominal pain : Denies dysuria, frequency, hematuria MUSCULOSKELETAL: denies muscle or bony pain, positive neck and back pain SKIN: Denies rash, skin lesions NEUROLOGIC: Denies weakness, numbness, positive headache/blurry vision/dizziness ROS Unobtainable: All systems reviewed & are unremarkable except as noted in HPI and below Patient History <José Bunch MD - Last Filed: 07/22/22 01:22> Medical History (Updated 07/11/22 @ 00:47 by Zurdo Salgado DO) Adjustment disorder Drug abuse History of drug abuse in remission Suicidal ideation Surgical History Status post dilation and curettage Family History Grandfather Prostate cancer Grandmother Breast cancer Diabetes mellitus Mother Chronic hepatitis B with cirrhosis Social History Smoking Status: Current every day smoker alcohol intake: current Smoking Status: Current every day smoker tobacco type: cigarettes and vaping alcohol intake frequency: 0-2 drinks per day Substance Use Type: former substance user, amphetamines and methamphetamine Exam <José Bunch MD - Last Filed: 07/22/22 01:22> Narrative Exam Narrative: GENERAL: in no distress, not toxic not dyspneic HEAD: Normocephalic. EYES: Pupils equal round No scleral icterus. No photophobia no papilledema, currently no blurry vision ENT: Mucous membranes moist. Palpable mass at the left lower anterior gumline and cheek NECK: Trachea midline. No midline tenderness or step-off of the cervical thora cic spine. Does have pain with flexion of the neck and leaning forward. CARDIOVASCULAR: Regular rate and rhythm RESPIRATORY: Clear to auscultation. Breath sounds equal bilaterally. No wheezes, rales, or rhonchi. GASTROINTESTINAL: Abdomen soft, non-tender EXTREMITIES: No gross deformities. BACK: No flank tenderness. NEURO: AOx4. 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 SKIN: Warm and dry, no rash on arms or face PSYCH: Not anxious, is cooperative Initial Vital Signs Initial Vital Signs: Vital Signs Temperature 98.3 F 07/08/22 13:28 Pulse Rate 61 07/08/22 13:28 Respiratory Rate 16 07/08/22 13:28 Blood Pressure 127/81 07/08/22 13:28 Pulse Oximetry 100 07/08/22 13:28 Oxygen Delivery Method 07/08/22 13:28 <Zurdo Salgado DO - Last Filed: 07/08/22 19:25> Initial Vital Signs Initial Vital Signs: Vital Signs Temperature 98.3 F 07/08/22 13:28 Pulse Rate 61 07/08/22 13:28 Respiratory Rate 16 07/08/22 13:28 Blood Pressure 127/81 07/08/22 13:28 Pulse Oximetry 100 07/08/22 13:28 Oxygen Delivery Method 07/08/22 13:28 Course <José Bunch MD - Last Filed: 07/22/22 01:22> Course Course Narrative: No new issues during course of stay 6:00 p.m.. Sign out to Dr. Salgado, labs and imaging so far reassuring however echocardiogram read is pending. Orders Ordered: ED Orders 07/08/22 13:33 XR chest 1V Stat 07/08/22 13:38 EKG-12 Lead Stat 07/08/22 13:43 CRP [C-Reactive Protein Quant] Stat Complete Blood Count AUTO DIFF Stat Comprehensive Metabolic Panel Stat ESR [Erythrocyte Sedimentation Rate] Stat Lipase Stat Magnesium Stat Partial Thromboplastin Time Stat Test Serum,Qual Stat Prothrombin Time INR Stat Troponin & CK Cardiac Panel Stat 07/08/22 13:56 CT facial bones w con Stat 07/08/22 14:00 Urinalysis and Microscopic Stat Urine Culture Stat Urine Drug Screen, Rapid Stat 07/08/22 14:04 CT angio head and neck Stat 07/08/22 14:07 EC echo doppler complete Stat 07/08/22 14:10 XR cervical spine 2V or 3V Stat XR thoracic spine 3V Stat Reevaluation(s) Reevaluation #1: Reviewed imaging and blood work with patient and partner. At this time awaiting for echocardiogram. At this time laboratory studies and imaging are reassuring. I reviewed with them with multisystem complaints, likely need outpatient referral for immunology/rheumatology/neurology but not limited to these services. They do agree with treatment plan. They would like referral to a new family doctor. Time: 15:53 Vital Signs Vital signs: Vital Signs - 8 hr 07/08/22 13:28 07/08/22 13:29 07/08/22 13:29 Temperature 98.3 F Pulse Rate 61 63 Respiratory Rate 16 Blood Pressure 127/81 125/74 Pulse Oximetry 100 100 Oxygen Delivery Method Room Air 07/08/22 13:30 07/08/22 13:30 07/08/22 14:02 Temperature Pulse Rate 63 54 L Respiratory Rate 17 21 Blood Pressure 127/81 Pulse Oximetry 100 99 Oxygen Delivery Method 07/08/22 14:03 07/08/22 14:03 07/08/22 14:57 Temperature Pulse Rate 53 L 55 L Respiratory Rate 15 Blood Pressure 116/55 L Pulse Oximetry 100 100 Oxygen Delivery Method 07/08/22 14:58 07/08/22 14:58 07/08/22 15:00 Temperature Pulse Rate 51 L Respiratory Rate 17 Blood Pressure 127/62 123/59 L Pulse Oximetry 100 Oxygen Delivery Method 07/08/22 15:00 07/08/22 15:20 07/08/22 15:20 Temperature Pulse Rate 49 L 49 L Respiratory Rate 16 22 Blood Pressure 105/59 L Pulse Oximetry 100 100 Oxygen Delivery Method 07/08/22 15:30 07/08/22 15:40 07/08/22 15:40 Temperature Pulse Rate 48 L 60 Respiratory Rate 19 22 Blood Pressure 116/68 Pulse Oximetry 97 99 Oxygen Delivery Method 07/08/22 16:00 07/08/22 16:00 07/08/22 16:20 Temperature Pulse Rate 59 L 56 L Respiratory Rate 18 16 Blood Pressure 113/54 L Pulse Oximetry 99 100 Oxygen Delivery Method 07/08/22 16:30 07/08/22 16:40 07/08/22 16:40 Temperature Pulse Rate 65 56 L Respiratory Rate 12 16 Blood Pressure 107/53 L Pulse Oximetry 99 97 Oxygen Delivery Method 07/08/22 17:00 07/08/22 17:00 07/08/22 17:20 Temperature Pulse Rate 59 L 58 L Respiratory Rate 20 18 Blood Pressure 107/73 Pulse Oximetry 99 98 Oxygen Delivery Method 07/08/22 17:22 07/08/22 17:22 07/08/22 17:30 Temperature Pulse Rate 64 56 L Respiratory Rate 19 19 Blood Pressure 121/62 Pulse Oximetry 98 97 Oxygen Delivery Method 07/08/22 17:40 07/08/22 17:40 07/08/22 18:00 Temperature Pulse Rate 55 L Respiratory Rate 21 Blood Pressure 119/71 110/59 L Pulse Oximetry 98 Oxygen Delivery Method 07/08/22 18:00 07/08/22 18:20 07/08/22 18:20 Temperature Pulse Rate 51 L 48 L Respiratory Rate 16 18 Blood Pressure 102/58 L Pulse Oximetry 96 97 Oxygen Delivery Method 07/08/22 18:30 07/08/22 18:41 07/08/22 18:41 Temperature Pulse Rate 52 L 55 L Respiratory Rate 17 16 Blood Pressure 114/56 L Pulse Oximetry 96 98 Oxygen Delivery Method 07/08/22 19:00 07/08/22 19:00 Temperature Pulse Rate 72 Respiratory Rate 16 Blood Pressure 102/64 Pulse Oximetry 96 Oxygen Delivery Method <Zurdo Salgado, DO - Last Filed: 07/08/22 19:25> Course Course Narrative: No new issues during course of stay 6:00 p.m.. Sign out to Dr. Salgado, labs and imaging so far reassuring however echocardiogram read is pending. Orders Ordered: ED Orders 07/08/22 13:33 XR chest 1V Stat 07/08/22 13:38 EKG-12 Lead Stat 07/08/22 13:43 CRP [C-Reactive Protein Quant] Stat Complete Blood Count AUTO DIFF Stat Comprehensive Metabolic Panel Stat ESR [Erythrocyte Sedimentation Rate] Stat Lipase Stat Magnesium Stat Partial Thromboplastin Time Stat Test Serum,Qual Stat Prothrombin Time INR Stat Troponin & CK Cardiac Panel Stat 07/08/22 13:56 CT facial bones w con Stat 07/08/22 14:00 Urinalysis and Microscopic Stat Urine Culture Stat Urine Drug Screen, Rapid Stat 07/08/22 14:04 CT angio head and neck Stat 07/08/22 14:07 EC echo doppler complete Stat 07/08/22 14:10 XR cervical spine 2V or 3V Stat XR thoracic spine 3V Stat Vital Signs Vital signs: Vital Signs - 8 hr 07/08/22 13:28 07/08/22 13:29 07/08/22 13:29 Temperature 98.3 F Pulse Rate 61 63 Respiratory Rate 16 Blood Pressure 127/81 125/74 Pulse Oximetry 100 100 Oxygen Delivery Method Room Air 07/08/22 13:30 07/08/22 13:30 07/08/22 14:02 Temperature Pulse Rate 63 54 L Respiratory Rate 17 21 Blood Pressure 127/81 Pulse Oximetry 100 99 Oxygen Delivery Method 07/08/22 14:03 07/08/22 14:03 07/08/22 14:57 Temperature Pulse Rate 53 L 55 L Respiratory Rate 15 Blood Pressure 116/55 L Pulse Oximetry 100 100 Oxygen Delivery Method 07/08/22 14:58 07/08/22 14:58 07/08/22 15:00 Temperature Pulse Rate 51 L Respiratory Rate 17 Blood Pressure 127/62 123/59 L Pulse Oximetry 100 Oxygen Delivery Method 07/08/22 15:00 07/08/22 15:20 07/08/22 15:20 Temperature Pulse Rate 49 L 49 L Respiratory Rate 16 22 Blood Pressure 105/59 L Pulse Oximetry 100 100 Oxygen Delivery Method 07/08/22 15:30 07/08/22 15:40 07/08/22 15:40 Temperature Pulse Rate 48 L 60 Respiratory Rate 19 22 Blood Pressure 116/68 Pulse Oximetry 97 99 Oxygen Delivery Method 07/08/22 16:00 07/08/22 16:00 07/08/22 16:20 Temperature Pulse Rate 59 L 56 L Respiratory Rate 18 16 Blood Pressure 113/54 L Pulse Oximetry 99 100 Oxygen Delivery Method 07/08/22 16:30 07/08/22 16:40 07/08/22 16:40 Temperature Pulse Rate 65 56 L Respiratory Rate 12 16 Blood Pressure 107/53 L Pulse Oximetry 99 97 Oxygen Delivery Method 07/08/22 17:00 07/08/22 17:00 07/08/22 17:20 Temperature Pulse Rate 59 L 58 L Respiratory Rate 20 18 Blood Pressure 107/73 Pulse Oximetry 99 98 Oxygen Delivery Method 07/08/22 17:22 07/08/22 17:22 07/08/22 17:30 Temperature Pulse Rate 64 56 L Respiratory Rate 19 19 Blood Pressure 121/62 Pulse Oximetry 98 97 Oxygen Delivery Method 07/08/22 17:40 07/08/22 17:40 07/08/22 18:00 Temperature Pulse Rate 55 L Respiratory Rate 21 Blood Pressure 119/71 110/59 L Pulse Oximetry 98 Oxygen Delivery Method 07/08/22 18:00 07/08/22 18:20 07/08/22 18:20 Temperature Pulse Rate 51 L 48 L Respiratory Rate 16 18 Blood Pressure 102/58 L Pulse Oximetry 96 97 Oxygen Delivery Method 07/08/22 18:30 07/08/22 18:41 07/08/22 18:41 Temperature Pulse Rate 52 L 55 L Respiratory Rate 17 16 Blood Pressure 114/56 L Pulse Oximetry 96 98 Oxygen Delivery Method 07/08/22 19:00 07/08/22 19:00 Temperature Pulse Rate 72 Respiratory Rate 16 Blood Pressure 102/64 Pulse Oximetry 96 Oxygen Delivery Method MDM - Chest Pain <José Bunch MD - Last Filed: 07/22/22 01:22> Differential Diagnosis Differential diagnosis: Likely other (Endocarditis/dental abscess/chest pain/sepsis) Lab Data Result diagrams: 07/08/22 13:43 07/08/22 13:43 Labs: Lab Results 07/08/22 07/08/22 07/08/22 Range/Units 13:43 13:43 13:43 WBC 5.6 (4.5-11.0) X10^3/uL RBC 4.34 (4.0-5.2) X10^6/uL Hgb 13.6 (12.0-16.0) g/dL Hct 40.8 (36-46) % MCV 93.9 (80-100) fL MCH 31.4 (26-34) PG MCHC 33.4 (30-36) % RDW 13.0 (11.6-14.8) % Plt Count 287 (150-400) X10^3/uL Neut % (Auto) 58.7 (50-75) % Lymph % (Auto) 31.9 (25-40) % [place] % (Auto) 7.6 (3-14) % Eos % (Auto) 1.3 L (2-4) % Baso % (Auto) 0.5 (0-2) % Neut # (Auto) 3300 (8082-9630) /uL Lymph # (Auto) 1800 (1813-3060) /uL [place] # (Auto) 400 (0-900) /uL Eos # (Auto) 100 (0-450) /uL Baso # (Auto) 0 (0-100) /uL ESR (0-20) MM/HR PT 12.8 H (10.1-12.7) SECONDS INR 1.1 (0.9-1.3) APTT 31 (26-36) SECONDS Sodium 138 (137-145) mmol/L Potassium 4.1 (3.4-5.1) mmol/L Chloride 102 (98-107) mmol/L Carbon Dioxide 27 (22-32) mmol/L BUN 15 (7-17) mg/dL Creatinine 0.69 (0.52-1.04) mg/dL Estimated GFR > 60 (>60) mL/min BUN/Creatinine Ratio 21.7 (6-22) Glucose 89 (70-100) mg/dL Calcium 9.2 (8.4-10.2) mg/dL Magnesium 2.1 (1.6-2.3) mg/dL Total Bilirubin 0.4 (0.2-1.3) mg/dL AST 34 (14-36) IU/L ALT 13 (<35) IU/L Alkaline Phosphatase 61 (38-126) U/L Total Creatine Kinase 74 (30-135) U/L CK-MB (CK-2) TNP CK-MB (CK-2) Rel Index TNP Troponin I < 0.012 (0.01-0.034) ng/mL C-Reactive Protein (<1.0) mg/dL Total Protein 7.6 (6.3-8.2) g/dL Albumin 4.2 (3.5-5.0) g/dL Globulin 3.4 (1.7-4.1) g/dL Albumin/Globulin Ratio 1.2 (1.0-2.8) Lipase 103 (23-300) U/L Serum , Qual (Negative) Urine Color Urine Appearance Urine pH (4.5-8.0) Ur Specific [place] (1.000-1.035) Urine Protein (Negative) Urine Glucose (UA) (Negative) g/dL Urine Ketones (NEGATIVE) Urine Occult Blood (Negative) Urine Nitrate (Negative) Urine Bilirubin (NEGATIVE) Urine Urobilinogen (0.2) E.U./dL Ur Leukocyte Esterase (NEGATIVE) Urine RBC (0-5/HPF) Urine WBC (0-5/HPF) Ur Squamous Epith Cells (0-5/HPF) Urine Bacteria (None) Ur Culture Indicated? U Opiates 300ng/mL cut (Negative) Ur Oxycodone Screen (Negative) Urine Methadone Screen (Negative) Ur Barbiturates Screen (Negative) U Tricyclic Antidepress (Negative) Ur Phencyclidine Scrn (Negative) Ur Amphetamines Screen (Negative) U Methamphetamines Scrn (Negative) Ur MDMA Scrn (Ecstasy) (Negative) U Benzodiazepines Scrn (Negative) Urine Cocaine Screen (Negative) U Marijuana (THC) Screen (Negative) 07/08/22 07/08/22 07/08/22 Range/Units 13:43 13:43 13:43 WBC (4.5-11.0) X10^3/uL RBC (4.0-5.2) X10^6/uL Hgb (12.0-16.0) g/dL Hct (36-46) % MCV (80-100) fL MCH (26-34) PG MCHC (30-36) % RDW (11.6-14.8) % Plt Count (150-400) X10^3/uL Neut % (Auto) (50-75) % Lymph % (Auto) (25-40) % [place] % (Auto) (3-14) % Eos % (Auto) (2-4) % Baso % (Auto) (0-2) % Neut # (Auto) (9547-1827) /uL Lymph # (Auto) (3860-2421) /uL [place] # (Auto) (0-900) /uL Eos # (Auto) (0-450) /uL Baso # (Auto) (0-100) /uL ESR 8 (0-20) MM/HR PT (10.1-12.7) SECONDS INR (0.9-1.3) APTT (26-36) SECONDS Sodium (137-145) mmol/L Potassium (3.4-5.1) mmol/L Chloride (98-107) mmol/L Carbon Dioxide (22-32) mmol/L BUN (7-17) mg/dL Creatinine (0.52-1.04) mg/dL Estimated GFR (>60) mL/min BUN/Creatinine Ratio (6-22) Glucose (70-100) mg/dL Calcium (8.4-10.2) mg/dL Magnesium (1.6-2.3) mg/dL Total Bilirubin (0.2-1.3) mg/dL AST (14-36) IU/L ALT (<35) IU/L Alkaline Phosphatase (38-126) U/L Total Creatine Kinase (30-135) U/L CK-MB (CK-2) CK-MB (CK-2) Rel Index Troponin I (0.01-0.034) ng/mL C-Reactive Protein < 0.5 (<1.0) mg/dL Total Protein (6.3-8.2) g/dL Albumin (3.5-5.0) g/dL Globulin (1.7-4.1) g/dL Albumin/Globulin Ratio (1.0-2.8) Lipase (23-300) U/L Serum , Qual Negative (Negative) Urine Color Urine Appearance Urine pH (4.5-8.0) Ur Specific [place] (1.000-1.035) Urine Protein (Negative) Urine Glucose (UA) (Negative) g/dL Urine Ketones (NEGATIVE) Urine Occult Blood (Negative) Urine Nitrate (Negative) Urine Bilirubin (NEGATIVE) Urine Urobilinogen (0.2) E.U./dL Ur Leukocyte Esterase (NEGATIVE) Urine RBC (0-5/HPF) Urine WBC (0-5/HPF) Ur Squamous Epith Cells (0-5/HPF) Urine Bacteria (None) Ur Culture Indicated? U Opiates 300ng/mL cut (Negative) Ur Oxycodone Screen (Negative) Urine Methadone Screen (Negative) Ur Barbiturates Screen (Negative) U Tricyclic Antidepress (Negative) Ur Phencyclidine Scrn (Negative) Ur Amphetamines Screen (Negative) U Methamphetamines Scrn (Negative) Ur MDMA Scrn (Ecstasy) (Negative) U Benzodiazepines Scrn (Negative) Urine Cocaine Screen (Negative) U Marijuana (THC) Screen (Negative) 07/08/22 07/08/22 Range/Units 14:00 14:00 WBC (4.5-11.0) X10^3/uL RBC (4.0-5.2) X10^6/uL Hgb (12.0-16.0) g/dL Hct (36-46) % MCV (80-100) fL MCH (26-34) PG MCHC (30-36) % RDW (11.6-14.8) % Plt Count (150-400) X10^3/uL Neut % (Auto) (50-75) % Lymph % (Auto) (25-40) % [place] % (Auto) (3-14) % Eos % (Auto) (2-4) % Baso % (Auto) (0-2) % Neut # (Auto) (0407-4758) /uL Lymph # (Auto) (3637-9664) /uL [place] # (Auto) (0-900) /uL Eos # (Auto) (0-450) /uL Baso # (Auto) (0-100) /uL ESR (0-20) MM/HR PT (10.1-12.7) SECONDS INR (0.9-1.3) APTT (26-36) SECONDS Sodium (137-145) mmol/L Potassium (3.4-5.1) mmol/L Chloride (98-107) mmol/L Carbon Dioxide (22-32) mmol/L BUN (7-17) mg/dL Creatinine (0.52-1.04) mg/dL Estimated GFR (>60) mL/min BUN/Creatinine Ratio (6-22) Glucose (70-100) mg/dL Calcium (8.4-10.2) mg/dL Magnesium (1.6-2.3) mg/dL Total Bilirubin (0.2-1.3) mg/dL AST (14-36) IU/L ALT (<35) IU/L Alkaline Phosphatase (38-126) U/L Total Creatine Kinase (30-135) U/L CK-MB (CK-2) CK-MB (CK-2) Rel Index Troponin I (0.01-0.034) ng/mL C-Reactive Protein (<1.0) mg/dL Total Protein (6.3-8.2) g/dL Albumin (3.5-5.0) g/dL Globulin (1.7-4.1) g/dL Albumin/Globulin Ratio (1.0-2.8) Lipase (23-300) U/L Serum , Qual (Negative) Urine Color Yellow Urine Appearance Clear Urine pH 5.0 (4.5-8.0) Ur Specific [place] 1.020 (1.000-1.035) Urine Protein Negative (Negative) Urine Glucose (UA) Negative (Negative) g/dL Urine Ketones Negative (NEGATIVE) Urine Occult Blood 3+ H (Negative) Urine Nitrate Negative (Negative) Urine Bilirubin Negative (NEGATIVE) Urine Urobilinogen 0.2 (0.2) E.U./dL Ur Leukocyte Esterase Negative (NEGATIVE) Urine RBC 5-10/hpf H (0-5/HPF) Urine WBC 5-10/hpf H (0-5/HPF) Ur Squamous Epith Cells 5-10 /hpf H (0-5/HPF) Urine Bacteria None seen (None) Ur Culture Indicated? Specimen cultured U Opiates 300ng/mL cut Negative (Negative) Ur Oxycodone Screen Negative (Negative) Urine Methadone Screen Negative (Negative) Ur Barbiturates Screen Negative (Negative) U Tricyclic Antidepress Negative (Negative) Ur Phencyclidine Scrn Negative (Negative) Ur Amphetamines Screen Negative (Negative) U Methamphetamines Scrn Negative (Negative) Ur MDMA Scrn (Ecstasy) Negative (Negative) U Benzodiazepines Scrn Negative (Negative) Urine Cocaine Screen Negative (Negative) U Marijuana (THC) Screen Negative (Negative) Imaging Data Chest x-ray: Radiologist's Impression: [address] [address] XRay Report Signed Patient: Marcos Olivarez MR#: [id number] : 1985 Acct:[id number] Age/Sex: 37 / F Date of Service: 07/08/22 Loc: ED Accession Number: [id number] ?? Procedure: XR chest 1V Ordering Provider: José Bunch MD PROCEDURE:? XR CHEST 1V ? INDICATIONS:? chest pain ? TECHNIQUE:? One view of the chest was acquired.? ? COMPARISON:? [facility], CR, XR CHEST 2V, 11/13/2018, 10:23. ? FINDINGS:? ? Surgical changes and devices:? None.? ? Lungs and pleura:? Lungs are clear.? No pleural effusions or pneumothorax.? ? Mediastinum:? Mediastinal contours appear normal.? Heart size is normal.? ? Bones and chest wall:? No suspicious bony lesions.? Overlying soft tissues appear unremarkable.? ? IMPRESSION:? No evidence acute pulmonary process. ? ? ? Dictated by: Lee Orta M.D. on 07/08/2022 at 14:18 ? ? Approved by: Lee Orta M.D. on 07/08/2022 at 14:18 ? CTA - brain/neck: Radiologist's Impression: [address] [address] [address] Scan Report Signed Patient: Marcos Olivarez MR#: [id number] : 1985 Acct:[id number] Age/Sex: 37 / F Date of Service: 07/08/22 Loc: ED Accession Number: [id number] ?? Procedure: CT angio head and neck Ordering Provider: José Bunch MD PROCEDURE:? CT ANGIO HEAD AND NECK ? INDICATIONS:? Headache/blurry vision/dizziness ? TECHNIQUE:? Pre-contrast 4.5 mm thick sections acquired from the foramen magnum to the vertex.? After the administration of intravenous contrast, 1 mm thick sections acquired from the aortic arch through the [place].? Post-contrast 4.5 mm thick sections then re- acquired from the foramen magnum to the vertex.? 3-dimensional maximum-intensity- projection (MIP) and/or volume rendering reformats were acquired of the central intracranial va sculature and neck separately. For radiation dose reduction, the following was used:? automated exposure control, adjustment of mA and/or kV according to patient size.? ? COMPARISON:? [facility], CT, CT FACIAL BONES W CON, 07/08/2022, 14:32.? [facility], CT, CT HEAD/BRAIN WO CON, 04/12/2018, 17:39. ? FINDINGS:? Image quality:? Evaluation of the arteries is limited by bolus timing, with ve nous contamination. ? BRAIN:? CSF spaces:? Ventricles are normal in size and shape.? Basal cisterns are patent.? No extra-axial fluid collections.? ? Brain:? No midline shift.? No intracranial bleeds or masses.? Isbell-white matter interface appears intact.? ? Skull and face:? Calvarium and facial bones appear intact, without suspicious lesions.? Orbits appear normal.? ? Sinuses:? Sinuses and mastoids are clear.? ? HEAD CT ANGIOGRAPHY:? Anterior circulation:? Intracranial internal carotid arteries are normal in size and flow.? The flow within the paired anterior cerebral arteries is normal and s ymmetric.? The flow within the middle cerebral arteries is normal and symmetric.? The anterior communicating artery is seen.? No aneurysms are seen.? ? Posterior circulation:? Visualized portions of the vertebral arteries demonstrate normal caliber, and join to form a normal appearing basilar artery.? Flow within the posterior cerebral arteries is normal and symmetric.? No aneurysms are seen.? ? The venous system is also opacify and demonstrates no seng thrombosis. ? NECK CT ANGIOGRAPHY:? Carotid system:? The great vessels demonstrate a conventional anatomy as they arise from the aortic arch.? The origins of the common carotid arteries appear patent.? The common carotid arteries demonstrate normal caliber and courses.? The bifurcation regions are both widely patent.? The internal carotid arteries demonstrate normal calibers and courses.? ? Posterior circulation:? The origins of the vertebral arteries both appear widely patent.? The more superior extracranial portions of both vertebral arteries also demonstrate normal courses and calibers.? They join to form a normal appearing basilar artery.? ? Soft tissues:? Visualized neck soft tissues demonstrate no suspicious abnormalities.? ? Bones:? No suspicious bony lesions.? Visualized cervical spine appears normally aligned.? Mild cervical spine degenerative changes are seen. ? ? IMPRESSION:? Within the arteries of the neck, no hemodynamically significant stenosis can be seen. ? No findings of dissection are seen. ? No significant intracranial arterial abnormality is seen.? No findings of intracranial venous thrombosis can be seen. ? No acute intracranial hemorrhage is seen.? ? No acute intracranial process is seen.? ? Any quantitative measurements of stenosis were performed using NASCET criteria.? ? ? Dictated by: Oscar Carias M.D. on 07/08/2022 at 14:01 ? ? Approved by: Oscar Carias M.D. on 07/08/2022 at 14:04 ? CT face: Radiologist's Impression: [address] [address] [address] Scan Report Signed Patient: Marcos Olivarez MR#: [id number] : 1985 Acct:[id number] Age/Sex: 37 / F Date of Service: 07/08/22 Loc: ED Accession Number: [id number] ?? Procedure: CT facial bones w con Ordering Provider: José Bunch MD PROCEDURE:? CT FACIAL BONES W CON ? INDICATIONS:? left jaw swelling ? TECHNIQUE:? After the administration of intravenous contrast, 2.5 mm axial sections acquired from the mid-neck to the frontal sinuses, with coronal and sagittal reformats.? For radiation dose reduction, the following was used:? automated exposure control, adjustment of mA and/or kV according to patient size.? ? COMPARISON:? None. ? FINDINGS:? Image quality:? Excellent.? ? Soft tissues:? No edema, masses, or fluid collections.? No enlarged lymph nodes.? ? Vascular:? Visualized vascular structures appear patent throughout.? Bony vascular foramina and canals appear normal.? ? Bones:? Metallic artifacts from dental fillings obscure adjacent structures.? Suspect a dental kasia in the left mandible.? Facial bones appear intact, without fractures, erosions, or destruction.? Visualized portions of the skull base and auditory canals also appear normal.? The temporomandibular joints are anatomically seated bilaterally. ? Sinuses:? 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 Paranasal sinuses are aerated without fluid levels, mucosal thickening, or mucoceles.? Mastoid air cells are aerated.? ? IMPRESSION:? ? 1. A cause for left jaw pain/swelling is not identified. 2. Suspect a dental kasia in the left mandible.? Recommend correlation with direct visualization. 3. No fluid collection to suggest periidibtak abscess.? ? ? Dictated by: Angelica Chacon M.D. on 07/08/2022 at 15:08 ? ? Approved by: Angelica Chacon M.D. on 07/08/2022 at 15:17 ? X-ray cervical spine: Radiologist's Impression: [address] [address] XRay Report Signed Patient: Marcos Olivarez MR#: [id number] : 1985 Acct:[id number] Age/Sex: 37 / F Date of Service: 07/08/22 Loc: ED Accession Number: [id number] ?? Procedure: XR cervical spine 2V or 3V Ordering Provider: José Bunch MD PROCEDURE:? XR CERVICAL SPINE 2V OR 3V ? INDICATIONS:? Pain ? TECHNIQUE:? 3 view(s) of the cervical spine were acquired.? ? COMPARISON:? None. ? FINDINGS:? ? Bones:? No fractures or dislocations to the T1 level.? The lateral masses of C1 appear intact on the odontoid view.? Mild cervical spondylosis.? No suspicious bony lesions.? ? Soft tissues:? No prevertebral soft tissue swelling.? ? ? IMPRESSION:? Mild cervical spondylosis. No evidence acute bony abnormality of the cervical spine. ? If clinical suspicion and/or symptoms persist, further assessment with repeat plain films, or advanced imaging (e.g., CT, MRI, or bone scan) may be helpful for further assessment. ? Dictated by: Lee Orta M.D. on 07/08/2022 at 14:57 ? ? Approved by: Lee Orta M.D. on 07/08/2022 at 14:58 ? X-ray thoracic spine: Radiologist's Impression: [address] [address] XRay Report Signed Patient: Marcos Olivarez MR#: [id number] : 1985 Acct:[id number] Age/Sex: 37 / F Date of Service: 07/08/22 Loc: ED Accession Number: [id number] ?? Procedure: XR thoracic spine 3V Ordering Provider: José Bunch MD PROCEDURE:? XR THORACIC SPINE 3V ? INDICATIONS:? Pain ? TECHNIQUE:? 3 views of the thoracic spine were acquired.? ? COMPARISON:? None. ? FINDINGS:? ? Bones:? No fractures or dislocations.? No suspicious bony lesions.? 11 pairs of ribs are noted, and appear intact where visualized.? Mild anterior wedging of a lower thoracic vertebral body, possibly T11. ? Soft tissues:? No paravertebral stripe thickening.? ? ? IMPRESSION:? No evidence acute bony abnormality of the thoracic spine. ? If clinical suspicion and/or symptoms persist, further assessment with repeat plain films, or advanced imaging (e.g., CT, MRI, or bone scan) may be helpful for further assessment. ? Dictated by: Lee Orta M.D. on 07/08/2022 at 14:55 ? ? Approved by: Lee Orta M.D. on 07/08/2022 at 14:57 ? ECG Data Interpretation: Normal sinus rhythm rate 67, no ST elevation or depression <Zurdo Salgado DO - Last Filed: 07/08/22 19:25> Lab Data Labs: Lab Results 07/08/22 07/08/22 07/08/22 Range/Units 13:43 13:43 13:43 WBC 5.6 (4.5-11.0) X10^3/uL RBC 4.34 (4.0-5.2) X10^6/uL Hgb 13.6 (12.0-16.0) g/dL Hct 40.8 (36-46) % MCV 93.9 (80-100) fL MCH 31.4 (26-34) PG MCHC 33.4 (30-36) % RDW 13.0 (11.6-14.8) % Plt Count 287 (150-400) X10^3/uL Neut % (Auto) 58.7 (50-75) % Lymph % (Auto) 31.9 (25-40) % [place] % (Auto) 7.6 (3-14) % Eos % (Auto) 1.3 L (2-4) % Baso % (Auto) 0.5 (0-2) % Neut # (Auto) 3300 (9639-1048) /uL Lymph # (Auto) 1800 (2819-8213) /uL [place] # (Auto) 400 (0-900) /uL Eos # (Auto) 100 (0-450) /uL Baso # (Auto) 0 (0-100) /uL ESR (0-20) MM/HR PT 12.8 H (10.1-12.7) SECONDS INR 1.1 (0.9-1.3) APTT 31 (26-36) SECONDS Sodium 138 (137-145) mmol/L Potassium 4.1 (3.4-5.1) mmol/L Chloride 102 (98-107) mmol/L Carbon Dioxide 27 (22-32) mmol/L BUN 15 (7-17) mg/dL Creatinine 0.69 (0.52-1.04) mg/dL Estimated GFR > 60 (>60) mL/min BUN/Creatinine Ratio 21.7 (6-22) Glucose 89 (70-100) mg/dL Calcium 9.2 (8.4-10.2) mg/dL Magnesium 2.1 (1.6-2.3) mg/dL Total Bilirubin 0.4 (0.2-1.3) mg/dL AST 34 (14-36) IU/L ALT 13 (<35) IU/L Alkaline Phosphatase 61 (38-126) U/L Total Creatine Kinase 74 (30-135) U/L CK-MB (CK-2) TNP CK-MB (CK-2) Rel Index TNP Troponin I < 0.012 (0.01-0.034) ng/mL C-Reactive Protein (<1.0) mg/dL Total Protein 7.6 (6.3-8.2) g/dL Albumin 4.2 (3.5-5.0) g/dL Globulin 3.4 (1.7-4.1) g/dL Albumin/Globulin Ratio 1.2 (1.0-2.8) Lipase 103 (23-300) U/L Serum , Qual (Negative) Urine Color Urine Appearance Urine pH (4.5-8.0) Ur Specific [place] (1.000-1.035) Urine Protein (Negative) Urine Glucose (UA) (Negative) g/dL Urine Ketones (NEGATIVE) Urine Occult Blood (Negative) Urine Nitrate (Negative) Urine Bilirubin (NEGATIVE) Urine Urobilinogen (0.2) E.U./dL Ur Leukocyte Esterase (NEGATIVE) Urine RBC (0-5/HPF) Urine WBC (0-5/HPF) Ur Squamous Epith Cells (0-5/HPF) Urine Bacteria (None) Ur Culture Indicated? U Opiates 300ng/mL cut (Negative) Ur Oxycodone Screen (Negative) Urine Methadone Screen (Negative) Ur Barbiturates Screen (Negative) U Tricyclic Antidepress (Negative) Ur Phencyclidine Scrn (Negative) Ur Amphetamines Screen (Negative) U Methamphetamines Scrn (Negative) Ur MDMA Scrn (Ecstasy) (Negative) U Benzodiazepines Scrn (Negative) Urine Cocaine Screen (Negative) U Marijuana (THC) Screen (Negative) 07/08/22 07/08/22 07/08/22 Range/Units 13:43 13:43 13:43 WBC (4.5-11.0) X10^3/uL RBC (4.0-5.2) X10^6/uL Hgb (12.0-16.0) g/dL Hct (36-46) % MCV (80-100) fL MCH (26-34) PG MCHC (30-36) % RDW (11.6-14.8) % Plt Count (150-400) X10^3/uL Neut % (Auto) (50-75) % Lymph % (Auto) (25-40) % [place] % (Auto) (3-14) % Eos % (Auto) (2-4) % Baso % (Auto) (0-2) % Neut # (Auto) (9430-7297) /uL Lymph # (Auto) (0100-2346) /uL [place] # (Auto) (0-900) /uL Eos # (Auto) (0-450) /uL Baso # (Auto) (0-100) /uL ESR 8 (0-20) MM/HR PT (10.1-12.7) SECONDS INR (0.9-1.3) APTT (26-36) SECONDS Sodium (137-145) mmol/L Potassium (3.4-5.1) mmol/L Chloride (98-107) mmol/L Carbon Dioxide (22-32) mmol/L BUN (7-17) mg/dL Creatinine (0.52-1.04) mg/dL Estimated GFR (>60) mL/min BUN/Creatinine Ratio (6-22) Glucose (70-100) mg/dL Calcium (8.4-10.2) mg/dL Magnesium (1.6-2.3) mg/dL Total Bilirubin (0.2-1.3) mg/dL AST (14-36) IU/L ALT (<35) IU/L Alkaline Phosphatase (38-126) U/L Total Creatine Kinase (30-135) U/L CK-MB (CK-2) CK-MB (CK-2) Rel Index Troponin I (0.01-0.034) ng/mL C-Reactive Protein < 0.5 (<1.0) mg/dL Total Protein (6.3-8.2) g/dL Albumin (3.5-5.0) g/dL Globulin (1.7-4.1) g/dL Albumin/Globulin Ratio (1.0-2.8) Lipase (23-300) U/L Serum , Qual Negative (Negative) Urine Color Urine Appearance Urine pH (4.5-8.0) Ur Specific [place] (1.000-1.035) Urine Protein (Negative) Urine Glucose (UA) (Negative) g/dL Urine Ketones (NEGATIVE) Urine Occult Blood (Negative) Urine Nitrate (Negative) Urine Bilirubin (NEGATIVE) Urine Urobilinogen (0.2) E.U./dL Ur Leukocyte Esterase (NEGATIVE) Urine RBC (0-5/HPF) Urine WBC (0-5/HPF) Ur Squamous Epith Cells (0-5/HPF) Urine Bacteria (None) Ur Culture Indicated? U Opiates 300ng/mL cut (Negative) Ur Oxycodone Screen (Negative) Urine Methadone Screen (Negative) Ur Barbiturates Screen (Negative) U Tricyclic Antidepress (Negative) Ur Phencyclidine Scrn (Negative) Ur Amphetamines Screen (Negative) U Methamphetamines Scrn (Negative) Ur MDMA Scrn (Ecstasy) (Negative) U Benzodiazepines Scrn (Negative) Urine Cocaine Screen (Negative) U Marijuana (THC) Screen (Negative) 07/08/22 07/08/22 Range/Units 14:00 14:00 WBC (4.5-11.0) X10^3/uL RBC (4.0-5.2) X10^6/uL Hgb (12.0-16.0) g/dL Hct (36-46) % MCV (80-100) fL MCH (26-34) PG MCHC (30-36) % RDW (11.6-14.8) % Plt Count (150-400) X10^3/uL Neut % (Auto) (50-75) % Lymph % (Auto) (25-40) % [place] % (Auto) (3-14) % Eos % (Auto) (2-4) % Baso % (Auto) (0-2) % Neut # (Auto) (2457-8913) /uL Lymph # (Auto) (6190-2847) /uL [place] # (Auto) (0-900) /uL Eos # (Auto) (0-450) /uL Baso # (Auto) (0-100) /uL ESR (0-20) MM/HR PT (10.1-12.7) SECONDS INR (0.9-1.3) APTT (26-36) SECONDS Sodium (137-145) mmol/L Potassium (3.4-5.1) mmol/L Chloride (98-107) mmol/L Carbon Dioxide (22-32) mmol/L BUN (7-17) mg/dL Creatinine (0.52-1.04) mg/dL Estimated GFR (>60) mL/min BUN/Creatinine Ratio (6-22) Glucose (70-100) mg/dL Calcium (8.4-10.2) mg/dL Magnesium (1.6-2.3) mg/dL Total Bilirubin (0.2-1.3) mg/dL AST (14-36) IU/L ALT (<35) IU/L Alkaline Phosphatase (38-126) U/L Total Creatine Kinase (30-135) U/L CK-MB (CK-2) CK-MB (CK-2) Rel Index Troponin I (0.01-0.034) ng/mL C-Reactive Protein (<1.0) mg/dL Total Protein (6.3-8.2) g/dL Albumin (3.5-5.0) g/dL Globulin (1.7-4.1) g/dL Albumin/Globulin Ratio (1.0-2.8) Lipase (23-300) U/L Serum , Qual (Negative) Urine Color Yellow Urine Appearance Clear Urine pH 5.0 (4.5-8.0) Ur Specific [place] 1.020 (1.000-1.035) Urine Protein Negative (Negative) Urine Glucose (UA) Negative (Negative) g/dL Urine Ketones Negative (NEGATIVE) Urine Occult Blood 3+ H (Negative) Urine Nitrate Negative (Negative) Urine Bilirubin Negative (NEGATIVE) Urine Urobilinogen 0.2 (0.2) E.U./dL Ur Leukocyte Esterase Negative (NEGATIVE) Urine RBC 5-10/hpf H (0-5/HPF) Urine WBC 5-10/hpf H (0-5/HPF) Ur Squamous Epith Cells 5-10 /hpf H (0-5/HPF) Urine Bacteria None seen (None) Ur Culture Indicated? Specimen cultured U Opiates 300ng/mL cut Negative (Negative) Ur Oxycodone Screen Negative (Negative) Urine Methadone Screen Negative (Negative) Ur Barbiturates Screen Negative (Negative) U Tricyclic Antidepress Negative (Negative) Ur Phencyclidine Scrn Negative (Negative) Ur Amphetamines Screen Negative (Negative) U Methamphetamines Scrn Negative (Negative) Ur MDMA Scrn (Ecstasy) Negative (Negative) U Benzodiazepines Scrn Negative (Negative) Urine Cocaine Screen Negative (Negative) U Marijuana (THC) Screen Negative (Negative) MDM Narrative Medical decision making narrative: [1810] (Damian) Patient received in sign out from Dr. Gabriel]. I have reviewed the clinical course and performed an independent history and physical exam. Multiple etiologies for patient's symptoms considered including: [Dental abscess versus dental kasia versus endocarditis versus other. Multiple etiologies of back pain considered including; Epidural abscess, cauda equina, mass occupying lesion, and other considered, however the pain is not midline in his off to the side in the paraspinals, there is no reproducible tenderness, no elevation in inflammatory markers or other red flag signs suggestive of a neurosurgical emergency] Meningitis considered but thought highly unlikely given lack of meningeal signs, no significant headache. This being said, we did spend a fair amount of time talking about the pros and cons, risks and benefits of doing a lumbar puncture, after this discussion she refused at this point time. Patient's symptoms slightly improved over duration of stay with above-stated therapies. Findings and discharge diagnosis discussed with patient/family followed by verbalization of understanding Return precautions discussed with patient/family whom verbalize understanding. Discharge Plan Departure Patient Disposition: Home Clinical Impression: Pain due to dental caries Instructions: DI for Dental Pain, DI for Thoracic Back Pain Activity Restrictions/Additional Instructions: *You have been diagnosed with [ Dental pain. As we discussed your history and physical exam as well as labs, imaging including CTs and echocardiogram are very reassuring and there is no obvious diagnosis which would require a specific or immediate intervention.] *What to do: *Please continue to take your regular medications as directed. [x ] New medication prescriptions sent to your pharmacy: [[facility] ] [ ] New medication written as a paper prescription [ ] No new medications given *Please follow up with your primary care provider in 2-3 days, call for an appointment. Let them know you were seen in the Emergency Department and that we ask that you be seen in follow up. We will electronically transmit a record of today's note if your PCP is in our system * as we discussed I have given you contact information for Dr. Pires who was a local oral and maxillofacial trauma surgeon, please call the office for follow- up regarding her dental pain *Return to Emergency Department if you should have any new, worsening or concerning symptoms, such as [fever greater than 101 F, shaking chills, worsening pain, persistent vomiting or other bothersome symptoms] Prescriptions: New ketorolac 10 mg tablet 10 mg PO Q6H PRN (Reason: pain) Qty: 14 0RF gabapentin 300 mg capsule 300 mg PO BEDTIME Qty: 14 0RF No Action ibuprofen 600 mg tablet 600 mg PO Q6H PRN (Reason: cramping) Qty: 30 0RF prenat.vits,anton,cwy-vpxo-agbec tablet 1 tab PO DAILY Qty: 30 0RF amoxicillin 500 mg capsule 500 mg PO BID Qty: 14 0RF chlorhexidine gluconate 0.12 % mouthwash 15 ml buccal DAILY Qty: 118 0RF Rx Instructions: swish and spit acetaminophen [Tylenol 8 Hour] 650 mg tablet extended release 650 mg PO Q6HR PRN (Reason: pain) Qty: 30 0RF hydroxyzine HCl 25 mg tablet 25 mg PO BID PRN (Reason: anxiety, heart racing) Qty: 14 0RF amoxicillin-pot clavulanate 875-125 mg tablet 1 tab PO Q12H Qty: 20 0RF ketorolac 10 mg tablet 10 mg PO Q6H PRN (Reason: pain) Qty: 14 0RF Referrals: Mickey Pires DMD [Physician] - Aydee Sands ARNP [Primary Care Provider] - Stand Alone Forms: Work Release Note Visit Report Forms: Patient Portal/API
[2022-07-08 13:58] LABS: PTT Partial Thromboplastin Tim 31 SECONDS (26-36)
[2022-07-08 14:00] LABS: Alanine Aminotransferase 13 IU/L (<35); Albumin 4.2 g/dL (3.5-5.0); Albumin Globulin Ratio 1.2 (1.0-2.8); Alkaline Phosphatase 61 U/L (38-126); Aspartate Aminotransferase 34 IU/L (14-36); BUN Creatinine Ratio 21.7 (6-22); Bilirubin Total 0.4 mg/dL (0.2-1.3); Blood Urea Nitrogen 15 mg/dL (7-17); Calcium 9.2 mg/dL (8.4-10.2); Carbon Dioxide 27 mmol/L (22-32); Chloride 102 mmol/L (98-107); Creatine Kinase 74 U/L (30-135); Estimated Glomerular Filt Rate > 60 mL/min (>60); Globulin 3.4 g/dL (1.7-4.1); Glucose 89 mg/dL (70-100); HEMOLYSIS < 15 (0-50); Lipase 103 U/L (23-300); Magnesium 2.1 mg/dL (1.6-2.3); Potassium 4.1 mmol/L (3.4-5.1); Sodium 138 mmol/L (137-145); Total Protein 7.6 g/dL (6.3-8.2)
[2022-07-08 14:01] LABS: Pregnancy Test Serum,Qual Negative (Negative)
[2022-07-08 14:04] LABS: C-Reactive Protein Quant < 0.5 mg/dL (<1.0)
--- NOTE | 2022-07-08 14:04 | DI.CT.S_ITS ---
PROCEDURE: CT ANGIO HEAD AND NECK INDICATIONS: Headache/blurry vision/dizziness TECHNIQUE: Pre-contrast 4.5 mm thick sections acquired from the foramen magnum to the vertex. After the administration of intravenous contrast, 1 mm thick sections acquired from the aortic arch through the [place]. Post-contrast 4.5 mm thick sections then re-acquired from the foramen magnum to the vertex. 3-dimensional jwcwumw-yhmsgqvtn-dfkjtjvuvc (MIP) and/or volume rendering reformats were acquired of the central intracranial vasculature and neck separately. For radiation dose reduction, the following was used: automated exposure control, adjustment of mA and/or kV according to patient size. COMPARISON: [facility], CT, CT FACIAL BONES W CON, 07/08/2022, 14:32. [facility], CT, CT HEAD/BRAIN WO CON, 04/12/2018, 17:39. FINDINGS: Image quality: Evaluation of the arteries is limited by bolus timing, with venous contamination. BRAIN: CSF spaces: Ventricles are normal in size and shape. Basal cisterns are patent. No extra-axial fluid collections. Brain: No midline shift. No intracranial bleeds or masses. Isbell-white matter interface appears intact. Skull and face: Calvarium and facial bones appear intact, without suspicious lesions. Orbits appear normal. Sinuses: Sinuses and mastoids are clear. HEAD CT ANGIOGRAPHY: Anterior circulation: Intracranial internal carotid arteries are normal in size and flow. The flow within the paired anterior cerebral arteries is normal and symmetric. The flow within the middle cerebral arteries is normal and symmetric. The anterior communicating artery is seen. No aneurysms are seen. Posterior circulation: Visualized portions of the vertebral arteries demonstrate normal caliber, and join to form a normal appearing basilar artery. Flow within the posterior cerebral arteries is normal and symmetric. No aneurysms are seen. The venous system is also opacify and demonstrates no seng thrombosis. NECK CT ANGIOGRAPHY: Carotid system: The great vessels demonstrate a conventional anatomy as they arise from the aortic arch. The origins of the common carotid arteries appear patent. The common carotid arteries demonstrate normal caliber and courses. The bifurcation regions are both widely patent. The internal carotid arteries demonstrate normal calibers and courses. Posterior circulation: The origins of the vertebral arteries both appear widely patent. The more superior extracranial portions of both vertebral arteries also demonstrate normal courses and calibers. They join to form a normal appearing basilar artery. Soft tissues: Visualized neck soft tissues demonstrate no suspicious abnormalities. Bones: No suspicious bony lesions. Visualized cervical spine appears normally aligned. Mild cervical spine degenerative changes are seen. IMPRESSION: Within the arteries of the neck, no hemodynamically significant stenosis can be seen. No findings of dissection are seen. No significant intracranial arterial abnormality is seen. No findings of intracranial venous thrombosis can be seen. No acute intracranial hemorrhage is seen. No acute intracranial process is seen. Any quantitative measurements of stenosis were performed using NASCET criteria. Dictated by: Oscar Carias M.D. on 07/08/2022 at 14:01 Approved by: Oscar Carias M.D. on 07/08/2022 at 14:04
[2022-07-08 14:07] LABS: Erythrocyte Sedimentation Rate 8 MM/HR (0-20)
--- NOTE | 2022-07-08 14:07 | DI.ECHO.S_ITS ---
[facility] +---------+ : : [address] [place] : : : : [id number] : : : : Phone: [phone]+ Echocardiogram Report + + :Name: BEATRIZ HAWKINS Study Date: 07/08/2022 Height: 64 in : :[facility] ReadingLocation: Weight: 100 lb : : Gender: Female BSA: 1.5 m2 : :: 1985 Age: 37 yrs BP: 113/54 mmHg: :Reason For Study: CHEST PAIN, DIZZINESS : :Ordering Physician: HARRIETT, : :BONILLA Performed By: Eli Gentile : :Referring: BONILLA LORENZANA : + + Interpretation Summary The left ventricle is normal in size and wall thickness. Left ventricular ejection fraction is estimated to be 55 +/- 5%. There are no focal wall motion abnormalities. Diastolic parameters suggest probable normal left ventricular diastolic function and normal filling pressures. The right ventricle is normal in size and function. The right ventricular systolic pressure is estimated to be at least 22 mmHg based on an estimated right atrial pressure of 3 mm Hg. The left atrial size is normal. Right atrial size is normal. There is no significant valvular heart disease. The aortic root is normal size. Procedure: A two-dimensional transthoracic echocardiogram with color flow and Doppler was performed. The study quality was technically good. There is no prior echocardiogram noted for this patient. The patient was in sinus rhythm with heart rates between 52-71 bpm during the exam. Left Ventricle: The left ventricle is normal in size and wall thickness. Left ventricular ejection fraction is estimated to be 55 +/- 5%. There are no focal wall motion abnormalities. Diastolic parameters suggest probable normal left ventricular diastolic function and normal filling pressures. Right Ventricle: The right ventricle is normal in size and function. Atria: The left atrial size is normal. Right atrial size is normal. There is no Doppler evidence for an interatrial shunt. Mitral Valve: The mitral valve is normal in structure and function. There is trace mitral regurgitation. Aortic Valve: The aortic valve is trileaflet. The aortic valve opens well. There is no aortic valve stenosis. No aortic regurgitation is present. Tricuspid Valve: The tricuspid valve is normal in structure and function. There is mild tricuspid regurgitation. The right ventricular systolic pressure is estimated to be at least 22 mmHg based on an estimated right atrial pressure of 3 mm Hg. Pulmonic Valve: The pulmonic valve leaflets are thin and pliable; valve motion is normal. There is trace pulmonic regurgitation. There is no significant valvular heart disease. Great Vessels: The aortic root is normal size. The dimensions of the ascending aorta are normal. The IVC is of normal diameter and collapses greater than 50% with a sniff. This suggests a low right atrial pressure of 3 mm Hg. Pericardium/ Pleura There is no pericardial effusion. There is no pleural effusion. MMode/2D Measurements & Calculations LVIDd: 4.8 cm LVOT diam: 1.8 cm LVIDs: 3.2 cm Ao root diam: 3.1 cm FS: 33.9 % asc Aorta Diam: 2.5 cm IVSd: 0.50 cm Ao Arch Diam (Prox Trans): 2.0 cm LVPWd: 0.61 cm LV machuca. diameter/BSA (cm/m^2): 3.3 LV sys. diameter/BSA (cm/m^2): 2.2 LA A2 area: 15.4 cm2 RA long axis: 4.2 cm LA A4 area: 13.5 cm2 RA area: 12.4 cm2 LA length (vol): 4.3 cm RA vol: 31.0 ml LA vol: 40.7 ml RA : 21.2 ml/m2 LA vol index: 27.9 ml/m2 IVC diam: 1.3 cm RVD1 (basal): 2.9 cm RVD2 (mid): 2.1 cm TAPSE: 2.1 cm Doppler Measurements & Calculations Ao V2 max: 122.1 cm/sec LVOT Max Iam: 86.0 cm/sec Ao V2 mean: 86.7 cm/sec LV V1 max P.0 mmHg Ao max P.0 mmHg LV V1 VTI: 21.0 cm Ao mean P.3 mmHg JAY(I,D): 1.8 cm2 Ao V2 VTI: 29.4 cm JAY(V,D): 1.8 cm2 sev ratio: 0.71 JAY indexed to BSA (cm^2/m^2): 1.2 MV E max iam: 52.8 cm/sec TR max iam: 219.0 cm/sec MV A max iam: 30.8 cm/sec TR max P.2 mmHg MV E/A: 1.7 PA V2 max: 76.5 cm/sec Med Peak E' Iam: 10.8 cm/sec PA V2 mean: 51.5 cm/sec E/E' med: 4.9 PA mean P.2 mmHg Lat Peak E' Iam: 14.2 cm/sec PA pr(Accel): 3.6 mmHg E/E' lat: 3.7 E/e' average: 4.3 MV dec time: 0.25 sec SV(LVOT): 52.6 ml Reading Physician:06:24 PM
--- NOTE | 2022-07-08 14:10 | DI.RAD.S_ITS ---
PROCEDURE: XR CERVICAL SPINE 2V OR 3V INDICATIONS: Pain TECHNIQUE: 3 view(s) of the cervical spine were acquired. COMPARISON: None. FINDINGS: Bones: No fractures or dislocations to the T1 level. The lateral masses of C1 appear intact on the odontoid view. Mild cervical spondylosis. No suspicious bony lesions. Soft tissues: No prevertebral soft tissue swelling. IMPRESSION: Mild cervical spondylosis. No evidence acute bony abnormality of the cervical spine. If clinical suspicion and/or symptoms persist, further assessment with repeat plain films, or advanced imaging (e.g., CT, MRI, or bone scan) may be helpful for further assessment. Dictated by: Lee Orta M.D. on 07/08/2022 at 14:57 Approved by: Lee Orta M.D. on 07/08/2022 at 14:58
--- NOTE | 2022-07-08 14:10 | DI.RAD.S_ITS ---
PROCEDURE: XR THORACIC SPINE 3V INDICATIONS: Pain TECHNIQUE: 3 views of the thoracic spine were acquired. COMPARISON: None. FINDINGS: Bones: No fractures or dislocations. No suspicious bony lesions. 11 pairs of ribs are noted, and appear intact where visualized. Mild anterior wedging of a lower thoracic vertebral body, possibly T11. Soft tissues: No paravertebral stripe thickening. IMPRESSION: No evidence acute bony abnormality of the thoracic spine. If clinical suspicion and/or symptoms persist, further assessment with repeat plain films, or advanced imaging (e.g., CT, MRI, or bone scan) may be helpful for further assessment. Dictated by: Lee Orta M.D. on 07/08/2022 at 14:55 Approved by: Lee Orta M.D. on 07/08/2022 at 14:57
[2022-07-08 14:11] LABS: Troponin I < 0.012 ng/mL (0.01-0.034)
[2022-07-08 14:11] LABS: Appearance Urine UA CLEAR; Bilirubin Urine UA NEGATIVE (NEGATIVE); Color Urine UA YELLOW; Glucose Urine UA NEGATIVE (Negative); Ketones Urine UA NEGATIVE (NEGATIVE); Leukocyte Esterase Urine UA NEGATIVE (NEGATIVE); Nitrite Urine UA NEGATIVE (Negative); Occult Blood Urine UA 3+ (Negative); Protein Urine UA NEGATIVE (Negative); Urobilinogen Urine UA 0.2 E.U./dL (0.2)
[2022-07-08 14:14] LABS: UR Morphine/Opiate cutoff 300 Negative (Negative); Ur Creatinine Normal (Normal); Ur Specific Gravity Normal (Normal); Urine Amphetamines Negative (Negative); Urine Barbiturates Negative (Negative); Urine Benzodiazepines Negative (Negative); Urine Cocaine Negative (Negative); Urine MDMA Negative (Negative); Urine Methadone Negative (Negative); Urine Methamphetamines Negative (Negative); Urine Oxycodone Negative (Negative); Urine Phencyclidine Negative (Negative); Urine Tetrahydrocannabinol Negative (Negative); Urine Tricyclic Antidepressant Negative (Negative); Urine pH Normal (Normal)
[2022-07-08 14:17] LABS: Bacteria Urine None Seen; Culture Indicated Urine Specimen Cultured; RBC Urine 5-10/HPF (0-5/HPF); Squamous Epithelial Cell Urine 5-10 /HPF (0-5/HPF); WBC Urine 5-10/HPF (0-5/HPF)
--- NOTE | 2022-07-08 19:19 | PC.NURSE ---
Report received - assumed care of pt at this time - resting quietly with family at bedside - eating - no needs voiced at this time
--- NOTE | 2022-07-08 19:22 | PC.NURSE ---
MD at bedside - family present
== END 2022-07-08 19:39 | disposition home or self-care (01) ==
PROVIDERS: Emergency Medicine; Emergency Provider Emergency Medicine; PCP Internal Medicine
DX: K02.9 Dental caries, unspecified (principal); H53.8 Other visual disturbances; M54.2 Cervicalgia; M54.6 Pain in thoracic spine; R07.9 Chest pain, unspecified
CPT/HCPCS: 36415; 70487; 70496; 70498; 71045; 72040; 72072; 80053; 80305; 81001; 82550; 83690; 83735; 84484; 84703; 85025; 85610; 85651; 85730; 86140; 87077; 87086; 87186; 93005; 93306; 99283; 99284; Q9967

== ENCOUNTER 2022-07-10 23:39 | Emergency (ER) | payer OTHER, MEDICAID, SELFPAY ==
--- NOTE | 2022-07-10 23:42 | ED_ITS ---
HPI - Dental/Oral General Chief complaint: Dental/Oral Stated complaint: abscess on lt. side jaw/ER 07/08/22 Time Seen by Provider: 07/10/22 23:42 History of Present Illness HPI Narrative: 37-year-old female smoker with remote history of methamphetamine use returns for the 2nd time this week. She had been seen and evaluated earlier in the week with significant dental pain and after thorough evaluation was discharged with symptomatic treatment as there was no clear indication of abscess or need for antibiotics. She presents today with ongoing dental pain but now has swelling and redness overlying her left lateral jaw and feels pain reaching up to her ear. She has no trouble swallowing or breathing. She denies any tongue, lip or throat swelling. She denies any obvious drainage of purulent material in her mouth. She has an appointment with the dental clinic on July 19 in [place]. Related Data Previous Rx's Medication Instructions Recorded prenat.vits,anton,vaq-twqb-zloww 1 tab PO DAILY #30 tabs 11/13/18 ibuprofen 600 mg tablet 600 mg PO Q6H PRN cramping #30 tabs 04/13/19 amoxicillin 500 mg capsule 500 mg PO BID #14 caps 03/29/22 acetaminophen 650 mg 650 mg PO Q6HR PRN pain #30 tabs 06/17/22 tablet,extended release (Tylenol 8 Hour) chlorhexidine gluconate 0.12 % 15 ml buccal DAILY #118 mL 06/17/22 mouthwash hydroxyzine HCl 25 mg tablet 25 mg PO BID PRN anxiety, heart 06/17/22 racing #14 tabs gabapentin 300 mg capsule 300 mg PO BEDTIME #14 caps 07/08/22 ketorolac 10 mg tablet 10 mg PO Q6H PRN pain #14 tabs 07/08/22 amoxicillin 875 mg-potassium 1 tab PO Q12H #20 tabs 07/10/22 clavulanate 125 mg tablet ketorolac 10 mg tablet 10 mg PO Q6H PRN pain #14 tabs 07/11/22 Allergies Allergy/AdvReac Type Severity Reaction Status Date / Time oxycodone [From Percocet] AdvReac Intermediate hives,itching, Verified 07/08/22 13:34 throat tightening, chest pain Review of Systems Review of Systems Narrative: GENERAL: Denies chills, fatigue, malaise, fever, sweats. HEENT: See HPI RESPIRATORY: Denies dyspnea, cough, wheezing, hemoptysis, sputum. CARDIOVASCULAR: Denies chest pain, palpitations, orthopnea, edema, GASTROINTESTINAL: Denies nausea, vomiting, abdominal pain, diarrhea, constipation, melena. : Denies dysuria, frequency, incontinence, hematuria, urinary retention. MUSCULOSKELETAL: denies weakness, joint pain, or bony pain SKIN: Denies rash, skin lesions, or other NEUROLOGIC: Denies weakness, headache, numbness, change in speech, confusion, seizures, incoordination. PSYCHIATRIC: No concerning psychosocial issues. 12 point review of systems is negative except for those stated above Patient History Medical History (Updated 07/11/22 @ 00:47 by Zurdo Salgado DO) Adjustment disorder Drug abuse History of drug abuse in remission Suicidal ideation Surgical History Status post dilation and curettage Family History Grandfather Prostate cancer Grandmother Breast cancer Diabetes mellitus Mother Chronic hepatitis B with cirrhosis Social History Smoking Status: Current every day smoker alcohol intake: current Smoking Status: Current every day smoker tobacco type: cigarettes and vaping alcohol intake frequency: 0-2 drinks per day Substance Use Type: former substance user, amphetamines and methamphetamine Exam Narrative Exam Narrative: GEN: AOx3 and in mild distress EYES: Pupils are equal, round, and reactive to light and accommodation. Extraoccular muscles are intact bilaterally. There is no subconjunctival hemorrhage or exudate. ENT: Widespread poor dentition, moderate left mandibular swelling with erythema, possible fluctuant region adjacent to left molar CHEST: Lungs are clear to auscultation bilaterally and free of wheezes, rales, or rhonchi. Heart rate is regular rhythm, there are no murmurs, clicks, rubs, or gallops. There is no chest wall tenderness. ABD: Abdomen is soft and nontender. There is no guarding or rebound. Bowel sounds are normal in all 4 quadrants. There is no mass or organomegaly. EXT: Full painless ROM of all extremities with no loss of sensation or strength. SKIN: Warm, pink, and dry. No erythema or rash Initial Vital Signs Initial Vital Signs: Vital Signs Pulse Rate 71 07/10/22 23:46 Respiratory Rate 16 07/10/22 23:46 Blood Pressure 122/68 07/10/22 23:46 Pulse Oximetry 97 07/10/22 23:46 Oxygen Delivery Method 07/10/22 23:46 Procedures Abscess I/D I&D #1: Site: oral Side (if applicable): left Local Anesthetic: bupivacaine 0.5% and with epi Amount of anesthesia used (mL): 4 Technique: needle aspiration Amount of fluid expressed (mL): 2 Irrigation: Yes Packing used?: none Course Orders Ordered: Discontinued Medications Amoxicillin/Clavulanate Potassium (Amoxicillin/Clav 875/125 Mg) 1 tab PO NOW ONE Stop: 07/10/22 23:55 Last Admin: 07/11/22 00:01 Dose: 1 tab Documented By: ERICKA Bupivacaine HCl/Epinephrine Bitart (Bupivacaine 0.5% W/ Epi (Pf) 30 Ml Vial) 5 ml SUBCUT NOW ONE Stop: 07/10/22 23:55 Last Admin: 07/11/22 00:02 Dose: 5 ml Documented By: ERICKA Vital Signs Vital signs: Vital Signs - 8 hr 07/10/22 23:46 07/10/22 23:50 Temperature 97.9 F Pulse Rate 71 Respiratory Rate 16 Blood Pressure 122/68 Pulse Oximetry 97 Oxygen Delivery Method Room Air MDM - Dental/Oral MDM Narrative Medical decision making narrative: Patient returns for ongoing dental pain but now with left mandibular swelling. She has no systemic findings, is not septic, has no issues controlling secretions, swallowing or controlling airway. Purulence drainage by needle aspiration, antibiotics initiated. Return precautions discussed and questions answered to her apparent satisfaction Discharge Plan Departure Patient Disposition: Home Clinical Impression: Abscess, dental Instructions: Tooth Abscess Activity Restrictions/Additional Instructions: *You have been diagnosed with [dental abscess] *What to do: *Please continue to take your regular medications as directed. [x ] New medication prescriptions sent to your pharmacy: [[facility] ] [ ] New medication written as a paper prescription [ ] No new medications given *Please follow up with your dentist as planned *Return to Emergency Department if you should have any new, worsening or concerning symptoms, such as [fever greater than 101 F, shaking chills, worsening pain, persistent vomiting or other bothersome symptoms] Prescriptions: New amoxicillin-pot clavulanate 875-125 mg tablet 1 tab PO Q12H Qty: 20 0RF ketorolac 10 mg tablet 10 mg PO Q6H PRN (Reason: pain) Qty: 14 0RF No Action ibuprofen 600 mg tablet 600 mg PO Q6H PRN (Reason: cramping) Qty: 30 0RF ketorolac 10 mg tablet 10 mg PO Q6H PRN (Reason: pain) Qty: 14 0RF gabapentin 300 mg capsule 300 mg PO BEDTIME Qty: 14 0RF prenat.vits,anton,lde-zjxm-xponi tablet 1 tab PO DAILY Qty: 30 0RF amoxicillin 500 mg capsule 500 mg PO BID Qty: 14 0RF chlorhexidine gluconate 0.12 % mouthwash 15 ml buccal DAILY Qty: 118 0RF Rx Instructions: swish and spit acetaminophen [Tylenol 8 Hour] 650 mg tablet extended release 650 mg PO Q6HR PRN (Reason: pain) Qty: 30 0RF hydroxyzine HCl 25 mg tablet 25 mg PO BID PRN (Reason: anxiety, heart racing) Qty: 14 0RF Referrals: Aydee Sands ARNP [Primary Care Provider] -
[2022-07-10 23:46] VITALS: BP 122/68; PULSE 71; RESP 16; O2SAT 97; BMI 17.2
[2022-07-10 23:50] VITALS: TEMP 36.6
[2022-07-11] MEDS: AMOXICILLIN/CLAV 875/125 MG 1 TAB PO (00:01)
[2022-07-11] MEDS: BUPIVACAINE 0.5% W/ EPI (PF) 30 ML VIAL 5 ML SUBCUT (00:02)
--- NOTE | 2022-07-11 00:04 | PC.NURSE ---
redness and swelling noted to left lower jaw, no drooling noted
== END 2022-07-11 00:51 | disposition home or self-care (01) ==
PROVIDERS: Emergency Provider Emergency Medicine; PCP Internal Medicine
DX: K04.7 Periapical abscess without sinus (principal)
CPT/HCPCS: 10060; 99283

== ENCOUNTER → 2022-09-22 15:54 | Outpatient (CLI) | payer OTHER, MEDICAID, SELFPAY | PROVIDERS: PCP Internal Medicine; Visit Provider Physician Assistant Medical | DX: J02.9 Acute pharyngitis, unspecified (principal) | CPT/HCPCS: 87070; 87880 ==

== ENCOUNTER 2022-10-25 18:13 | Emergency (ER) | payer OTHER, MEDICAID, SELFPAY ==
[2022-10-25 18:33] VITALS: BP 126/57; PULSE 73; RESP 16; TEMP 36.9; O2SAT 97
== END 2022-10-25 20:50 | disposition left against medical advice (07) ==
PROVIDERS: Emergency Provider Emergency Medicine; PCP Internal Medicine
DX: K04.7 Periapical abscess without sinus (principal)
CPT/HCPCS: 99281

== ENCOUNTER 2022-10-27 21:57 | Emergency (ER) | payer OTHER, MEDICAID, SELFPAY ==
[2022-10-27] VITALS (7 sets, daily range): BP systolic 126–140; BP diastolic 62–95; PULSE 58–72; RESP 18; TEMP 36.6; O2SAT 97–100; BMI 18.0
[2022-10-28] VITALS (10 sets, daily range): BP systolic 121–177; BP diastolic 77–122; PULSE 54–77; O2SAT 98–100
--- NOTE | 2022-10-28 00:41 | ED.DENTAL ---
HPI - Dental/Oral General Chief complaint: Dental/Oral Stated complaint: dental abscess Time Seen by Provider: 10/28/22 00:27 Source: patient Mode of arrival: Ambulatory History of Present Illness HPI Narrative: Patient is a 37-year-old female who has chronic ongoing dental issues presenting today with left lower jaw abscess. It was there 2 months ago she was in the ED was I and D he would some pus was drained she was put on Augmentin given Toradol. She says she is been to multiple dentist she keeps hitting pushed around she can not find a dentist to take her insurance although she reports going to [facility]. She has no fever or chills. She is no facial swelling. She does get pain going up her jaw. She feels like she might have difficulty swallowing. Related Data Previous Rx's Medication Instructions Recorded prenat.sai,anton,lic-xmni-bffur 1 tab PO DAILY #30 tabs 11/13/18 ibuprofen 600 mg tablet 600 mg PO Q6H PRN cramping #30 tabs 04/13/19 amoxicillin 500 mg capsule 500 mg PO BID #14 caps 03/29/22 acetaminophen 650 mg 650 mg PO Q6HR PRN pain #30 tabs 06/17/22 tablet,extended release (Tylenol 8 Hour) chlorhexidine gluconate 0.12 % 15 ml buccal DAILY #118 mL 06/17/22 mouthwash hydroxyzine HCl 25 mg tablet 25 mg PO BID PRN anxiety, heart 06/17/22 racing #14 tabs gabapentin 300 mg capsule 300 mg PO BEDTIME #14 caps 07/08/22 ketorolac 10 mg tablet 10 mg PO Q6H PRN pain #14 tabs 07/08/22 amoxicillin 875 mg-potassium 1 tab PO Q12H #20 tabs 07/10/22 clavulanate 125 mg tablet ketorolac 10 mg tablet 10 mg PO Q6H PRN pain #14 tabs 07/11/22 amoxicillin 875 mg-potassium 1 tab PO BID #20 tabs 09/22/22 clavulanate 125 mg tablet amoxicillin 500 mg capsule 500 mg PO BID #20 caps 10/28/22 ketorolac 10 mg tablet 10 mg PO TID PRN pain #10 tabs 10/28/22 Allergies Allergy/AdvReac Type Severity Reaction Status Date / Time oxycodone [From Percocet] AdvReac Intermediate hives,itching, Verified 10/25/22 18:38 throat tightening, chest pain Opioids - Morphine Analogues AdvReac Hives Verified 10/27/22 22:00 Review of Systems Review of Systems ROS Unobtainable: All systems reviewed & are unremarkable except as noted in HPI and below Patient History Medical History (Updated 10/28/22 @ 01:10 by Jenn Markham DO) Adjustment disorder Drug abuse History of drug abuse in remission Suicidal ideation Surgical History Status post dilation and curettage Family History Grandfather Prostate cancer Grandmother Breast cancer Diabetes mellitus Mother Chronic hepatitis B with cirrhosis Social History Smoking Status: Current every day smoker alcohol intake: current Smoking Status: Current every day smoker tobacco type: cigarettes and vaping alcohol intake frequency: holidays/special occasions only Substance Use Type: former substance user and methamphetamine Exam Initial Vital Signs Initial Vital Signs: Vital Signs Temperature 97.8 F 10/27/22 22:00 Pulse Rate 72 10/27/22 22:00 Respiratory Rate 18 10/27/22 22:00 Blood Pressure 129/62 10/27/22 22:00 Pulse Oximetry 100 10/27/22 22:00 Oxygen Delivery Method 10/27/22 22:00 GENERAL: Well-appearing, well-nourished and in no acute distress. HEENT: No significant facial swelling or erythema no trismus CARDIOVASCULAR: peripheral pulses in tact, cap refill <2 sec RESPIRATORY: No respiratory distress, speaks in full sentences without difficulty EXTREMITIES: Normal range of motion, no clubbing or edema. Neurovascularly intact NEUROLOGICAL: Cranial nerves II through XII grossly intact. Normal gait and speech. SKIN: Warm, dry, no petechiae, no rashes or lesions. HENMT Adult Head Mouth w/Numbe Teeth: 1. Tissue swelling. No significant dental abscess Procedures Abscess I/D I&D #1: Side (if applicable): left Local Anesthetic: lidocaine 2% Amount of anesthesia used (mL): 2 Technique: needle aspiration Nerve Block Nerve Block 1: Local Anesthetic: lidocaine 2% Side: left Intraoral Nerve Block: infraorbital Procedure Successful: Yes Patient Tolerated Procedure: Well and No complications Complications: bleeding Course Orders Ordered: Discontinued Medications Amoxicillin (Amoxicillin 250 Mg Prepack) 1 bottle MISC SEEINSTR ONE Stop: 10/28/22 00:55 Last Admin: 10/28/22 01:11 Dose: 1 bottle Documented By: ADELA Ketorolac Tromethamine (Ketorolac 30 Mg/Ml Vial) 15 mg IV NOW ONE Stop: 10/28/22 00:55 Last Admin: 10/28/22 01:11 Dose: 15 mg Documented By: ADELA Vital Signs Vital signs: Vital Signs - 8 hr 10/27/22 22:00 10/27/22 22:58 10/27/22 22:58 Temperature 97.8 F Pulse Rate 72 64 Respiratory Rate 18 Blood Pressure 129/62 140/95 H Pulse Oximetry 100 98 Oxygen Delivery Method Room Air 10/27/22 23:00 10/27/22 23:01 10/27/22 23:01 Temperature Pulse Rate 60 60 Respiratory Rate Blood Pressure 137/84 Pulse Oximetry 98 98 Oxygen Delivery Method 10/27/22 23:15 10/27/22 23:15 10/27/22 23:30 Temperature Pulse Rate 62 Respiratory Rate Blood Pressure 133/83 131/84 Pulse Oximetry 98 Oxygen Delivery Method 10/27/22 23:30 10/27/22 23:45 10/27/22 23:45 Temperature Pulse Rate 65 58 L Respiratory Rate Blood Pressure 126/70 Pulse Oximetry 99 97 Oxygen Delivery Method 10/28/22 00:00 10/28/22 00:00 10/28/22 00:15 Temperature Pulse Rate 58 L Respiratory Rate Blood Pressure 123/78 121/80 Pulse Oximetry 100 Oxygen Delivery Method 10/28/22 00:15 10/28/22 00:30 10/28/22 00:30 Temperature Pulse Rate 55 L 60 Respiratory Rate Blood Pressure 128/89 Pulse Oximetry 99 99 Oxygen Delivery Method 10/28/22 00:45 10/28/22 00:45 10/28/22 01:00 Temperature Pulse Rate 54 L 77 Respiratory Rate Blood Pressure 131/91 H Pulse Oximetry 98 99 Oxygen Delivery Method 10/28/22 01:01 10/28/22 01:01 10/28/22 01:04 Temperature Pulse Rate 77 Respiratory Rate Blood Pressure 163/122 H 162/110 H Pulse Oximetry 99 Oxygen Delivery Method 10/28/22 01:04 10/28/22 01:07 10/28/22 01:07 Temperature Pulse Rate 67 70 Respiratory Rate Blood Pressure 173/113 H Pulse Oximetry 100 100 Oxygen Delivery Method 10/28/22 01:15 10/28/22 01:15 10/28/22 01:21 Temperature Pulse Rate 61 Respiratory Rate Blood Pressure 177/106 H 159/77 H Pulse Oximetry 100 Oxygen Delivery Method 10/28/22 01:21 Temperature Pulse Rate 61 Respiratory Rate Blood Pressure Pulse Oximetry 100 Oxygen Delivery Method MDM - Dental/Oral MDM Narrative Medical decision making narrative: Patient 37-year-old female with history of chronic ongoing dental abscesses she is been to this emergency department 4 times in the last 7 months for the same. Previous visit was in July there was an I&D done with a needle. Patient really is not tachycardic not hypotensive she is afebrile she has no significant swelling of her face no erythema. No evidence of deep neck soft tissue infection. She possibly has some swelling in her gums. Attempted I and D today was unsuccessful. She is put on antibiotics. Requesting Toradol at home. IVs were initially placed by nursing staff however she really does not need any workup. At this time she needs to follow-up with a dentist and antibiotics. Discharge Plan Departure Patient Disposition: Home Clinical Impression: Dental abscess Instructions: Tooth Abscess Activity Restrictions/Additional Instructions: *You have been diagnosed with dental abscess *What to do: Dry warm compress. He may try and milk out the abscess. Antibiotics will help but it will take 2-3 days to help *Continue to take medications as directed--> SENT TO [facility] Amoxicillin 500 mg twice a day for 10 days *Follow up with your primary care provider in 2-3 days or call [phone] Tylenol 1000 mg every 6 hours if needed for [id number] pain Ketorolac 10 mg every 6 hours if needed for [id number] pain--do not take with ibuprofen Motrin Aleve Advil or naproxen or other NSAIDs *Return to ER if you should have increased facial swelling redness fever difficulty swallowing or any new, worsening or concerning symptoms Prescriptions: New amoxicillin 500 mg capsule 500 mg PO BID Qty: 20 0RF ketorolac 10 mg tablet 10 mg PO TID PRN (Reason: pain) Qty: 10 0RF No Action amoxicillin-pot clavulanate 875-125 mg tablet 1 tab PO BID Qty: 20 0RF ibuprofen 600 mg tablet 600 mg PO Q6H PRN (Reason: cramping) Qty: 30 0RF ketorolac 10 mg tablet 10 mg PO Q6H PRN (Reason: pain) Qty: 14 0RF gabapentin 300 mg capsule 300 mg PO BEDTIME Qty: 14 0RF prenat.vits,anton,hek-iqyd-qykkp tablet 1 tab PO DAILY Qty: 30 0RF amoxicillin 500 mg capsule 500 mg PO BID Qty: 14 0RF chlorhexidine gluconate 0.12 % mouthwash 15 ml buccal DAILY Qty: 118 0RF Rx Instructions: swish and spit acetaminophen [Tylenol 8 Hour] 650 mg tablet extended release 650 mg PO Q6HR PRN (Reason: pain) Qty: 30 0RF hydroxyzine HCl 25 mg tablet 25 mg PO BID PRN (Reason: anxiety, heart racing) Qty: 14 0RF amoxicillin-pot clavulanate 875-125 mg tablet 1 tab PO Q12H Qty: 20 0RF ketorolac 10 mg tablet 10 mg PO Q6H PRN (Reason: pain) Qty: 14 0RF Referrals: Aydee Sands ARNP [Primary Care Provider] - Stand Alone Forms: Patient Portal/API
[2022-10-28] MEDS: AMOXICILLIN 250 MG PREPACK 1 BOTTLE MISC (01:11)
[2022-10-28] MEDS: KETOROLAC 30 MG/ML VIAL 15 MG IV (01:11)
== END 2022-10-28 01:28 | disposition home or self-care (01) ==
PROVIDERS: Emergency Provider Emergency Medicine; PCP Internal Medicine
DX: K04.7 Periapical abscess without sinus (principal)
CPT/HCPCS: 10060; 36415; 99283; 99284; J1885

== ENCOUNTER → 2022-12-29 09:17 | Outpatient (CLI) | payer OTHER, MEDICAID, SELFPAY ==
[2022-12-29 11:12] LABS: Free T4, Direct Thyroxine 1.04 ng/dL (0.78-2.19)
[2022-12-29 11:26] LABS: Thyroid Stimulating Hormone 1.32 uIU/mL (0.47-4.68)
[2022-12-29 11:36] LABS: Progesterone, Total 4.79 ng/mL
[2023-01-18 07:15] LABS: Percent Free Testosterone 0.97 % (0.50-2.80); Testosterone Free 0.23 ng/dL (0.10-0.85); Testosterone Total 23.7 ng/dL (10.0-55.0)
== END ==
PROVIDERS: PCP Internal Medicine; Referring Provider Obstetrics & Gynecology; Visit Provider Obstetrics & Gynecology
DX: E34.9 Endocrine disorder, unspecified (principal)
CPT/HCPCS: 36415; 84144; 84402; 84403; 84439; 84443

== ENCOUNTER 2023-06-28 10:59 | Emergency (ER) | payer OTHER, MEDICAID, SELFPAY ==
[2023-06-28 11:12] VITALS: BP 113/56; PULSE 71; RESP 17; TEMP 36.7; O2SAT 97; BMI 18.5
[2023-06-28 13:53] VITALS: BP 128/70; PULSE 68; RESP 15; O2SAT 99
--- NOTE | 2023-06-28 14:30 | ED.FEMALEGU ---
HPI - Female Genitourinary <Yasemin Pendleton PA-C - Last Filed: 06/28/23 14:37> General Chief complaint: Urogenital-Female Stated complaint: uti Time Seen by Provider: 06/28/23 12:29 Source: patient Mode of arrival: Ambulatory History of Present Illness HPI Narrative: 38-year-old female, current smoker with no reported past medical history presents to the ED with 1 week of painful urination. Patient states that she has had chronic hematuria that was diagnosed at the , etiology unknown. Patient states she has about 5 episodes of hematuria every year. Patient has not seen a urologist for this. Patient states that her latest episode involves pain in her bladder when she urinates. Patient states that she is not seen any blood in the urine. Patient denies flank pain, nausea, vomiting, fever, chills. Patient states that she has recently lost a lot of weight, has lost a lot of hair, feels more tired. She has also recently been seen by Dr. Castanon and her thyroid has been tested. Her thyroid tests were normal. Related Data Allergies Allergy/AdvReac Type Severity Reaction Status Date / Time oxycodone [From Percocet] AdvReac Intermediate hives,itching, Verified 06/28/23 11:15 throat tightening, chest pain Opioids - Morphine Analogues AdvReac Hives Verified 06/28/23 11:15 Review of Systems <Yasemin Pendleton PA-C - Last Filed: 06/28/23 14:37> Review of Systems ROS Unobtainable: All systems reviewed & are unremarkable except as noted in HPI and below Constitutional Constitutional: Denies chills, Denies fatigue, Denies fever(s), Denies frequent falls, Denies lethargy and Denies weakness Eyes Eyes: Denies change in vision, Denies eye discharge, Denies irritation and Denies loss of vision ENT Ears, Nose, Mouth, and Throat: Denies change in voice, Denies dizziness, Denies neck pain, Denies sore throat and Denies throat swelling Cardiovascular Cardiovascular: Denies chest pain, Denies irregular heart rhythm, Denies lightheadedness, Denies palpitations, Denies dyspnea, Denies dyspnea on exertion and Denies orthopnea Respiratory Respiratory: Denies cough, Denies dyspnea, Denies dyspnea on exertion and Denies wheezing Gastrointestinal Gastrointestinal: Denies abdominal pain, Denies change in bowel habits, Denies diarrhea, Denies nausea and Denies vomiting Genitourinary Genitourinary: Denies hematuria, Denies flank pain, Denies urinary incontinence and Denies urinary urgency Comments: Pain with urination Musculoskeletal Musculoskeletal: Denies back pain, Denies muscle weakness, Denies neck pain, Denies numbness and Denies tingling Integumentary/Breasts Skin/Breast: Denies pruritus, Denies erythema, Denies rash and Denies wounds Neurologic Neurologic: Denies behavioral changes, Denies confusion, Denies dizziness, Denies frequent falls, Denies loss of vision, Denies numbness, Denies tingling and Denies weakness Psychiatric Psychiatric: Denies anxiety, Denies behavioral changes, Denies confusion, Denies depression, Denies homicidal ideation and Denies suicidal ideation Endocrine Endocrine: Denies fatigue, Denies flushing and Denies palpitations Hematologic/Lymphatic Hematologic/Lymphatic: Denies easy bruising Allergic/Immunologic Allergic/Immunologic: Denies urticaria, Denies throat swelling and Denies wheezing Patient History <Yasemin Pendleton PA-C - Last Filed: 06/28/23 14:37> Medical History Adjustment disorder Drug abuse History of drug abuse in remission Suicidal ideation Surgical History Status post dilation and curettage Family History Grandfather Prostate cancer Grandmother Breast cancer Diabetes mellitus Mother Chronic hepatitis B with cirrhosis tobacco type: cigarettes and vaping alcohol intake frequency: holidays/special occasions only Substance Use Type: former substance user and methamphetamine Exam <Yasemin Pendleton PA-C - Last Filed: 06/28/23 14:37> Narrative Exam Narrative: Const General:?cooperative, healthy appearing and comfortable [facility] Head:?normal to inspection Ears:?hearing grossly normal bilaterally Nose:?external nose normal Face and sinus:?normal facial exam and sinuses nontender Mouth:?oral mucosae normal Throat:?posterior oropharynx normal Eyes General:?appearance normal, both eyes and all related structures Neck Neck:?normal visual inspection and no lymphadenopathy noted Resp Effort & Inspection:?normal respiratory effort Auscultation:?clear to auscultation bilaterally Cardio Rate:?regular rate Rhythm:?regular rhythm GI Abdomen is soft, nondistended, nontender to palpation. There is no CVA tenderness. Neuro General:?patient alert, patient awake and patient oriented x3 Initial Vital Signs Initial Vital Signs: Vital Signs Temperature 98.1 F 06/28/23 11:12 Pulse Rate 71 06/28/23 11:12 Respiratory Rate 17 06/28/23 11:12 Blood Pressure 113/56 L 06/28/23 11:12 Pulse Oximetry 97 06/28/23 11:12 Oxygen Delivery Method Room Air 06/28/23 11:12 <Bob Camargo DO - Last Filed: 06/28/23 14:39> Initial Vital Signs Initial Vital Signs: Vital Signs Temperature 98.1 F 06/28/23 11:12 Pulse Rate 71 06/28/23 11:12 Respiratory Rate 17 06/28/23 11:12 Blood Pressure 113/56 L 06/28/23 11:12 Pulse Oximetry 97 06/28/23 11:12 Oxygen Delivery Method Room Air 06/28/23 11:12 Course <Yasemin Pendleton PA-C - Last Filed: 06/28/23 14:37> Vital Signs Vital signs: Vital Signs - 8 hr 06/28/23 11:12 06/28/23 13:53 Temperature 98.1 F Pulse Rate 71 68 Respiratory Rate 17 15 Blood Pressure 113/56 L 128/70 Pulse Oximetry 97 99 Oxygen Delivery Method Room Air Room Air <Bob Camargo DO - Last Filed: 06/28/23 14:39> Vital Signs Vital signs: Vital Signs - 8 hr 06/28/23 11:12 06/28/23 13:53 Temperature 98.1 F Pulse Rate 71 68 Respiratory Rate 17 15 Blood Pressure 113/56 L 128/70 Pulse Oximetry 97 99 Oxygen Delivery Method Room Air Room Air MDM - Female Genitourinary <Yasemin Pendleton PA-C - Last Filed: 06/28/23 14:37> Lab Data Labs: Point of Care Testing Test Results Negative Urine Dip Bedside Urine Glucose Negative Bedside Urine Bilirubin - Negative Bedside Urine Ketone - Negative Urine Specific [place] 1.015 Bedside Urine Occult Blood - Negative Bedside Urine pH 8.0 Bedside Urine Protein - Negative Bedside Urine Urobilinogen - Negative Bedside Urine Nitrite - Negative Bedside Urine Leukocytes - Negative Esterase MDM Narrative Medical decision making narrative: 38-year-old female, current smoker with no reported past medical history presents to the ED with 1 week of painful urination. Concern for UTI versus malignancy versus interstitial cystitis versus other. UA was negative for UTI. Discussed with patient that the etiology of her dysuria needs to be further evaluated by a urologist. Discussed alternative causes of bladder pain. Discussed risk of bladder cancer given that she is a smoker. Patient has a appointment with her PCP Dr. Sands later this week and she agrees to bring up this issue of chronic dysuria and hematuria. ED return precautions were discussed with patient. Patient verbalized understanding. Medical records reviewed: Yes <Bob Camargo DO - Last Filed: 06/28/23 14:39> Lab Data Labs: Point of Care Testing Test Results Negative Urine Dip Bedside Urine Glucose Negative Bedside Urine Bilirubin - Negative Bedside Urine Ketone - Negative Urine Specific [place] 1.015 Bedside Urine Occult Blood - Negative Bedside Urine pH 8.0 Bedside Urine Protein - Negative Bedside Urine Urobilinogen - Negative Bedside Urine Nitrite - Negative Bedside Urine Leukocytes - Negative Esterase Discharge Plan Departure Patient Disposition: Home Clinical Impression: Dysuria Instructions: DI for Dysuria -- Adult Activity Restrictions/Additional Instructions: You were evaluated in the ED today for painful urination. Your urine did any signs of infection or hematuria today. It is unclear why you are having these symptoms, however keep your appointment with Dr. Sands as scheduled for this week for further evaluation. You may need a referral to Urology for further workup, given this is a chronic ongoing issue. Please return to the ED if you have worsening symptoms, persistent vomiting, fever, chills. Referrals: Aydee Sands ARNP [Primary Care Provider] - Stand Alone Forms: Patient Portal/API <Bob Camargo DO - Last Filed: 06/28/23 14:39> Cosign ED Attending Cosignature Attestation: Dr Camargo Co-Sign Statement: I was available for consultation during this patient's emergency department visit. This chart is signed by myself for administrative purposes only. I did not have direct contact with this patient during this visit. They were seen independently by the APC.
== END 2023-06-28 13:54 | disposition home or self-care (01) ==
PROVIDERS: Emergency Provider Student in an Organized Health Care Education/Training Program; PCP Internal Medicine
DX: R30.0 Dysuria (principal)
CPT/HCPCS: 81003; 81025; 99282

== ENCOUNTER 2023-10-28 01:08 | Emergency (ER) | payer OTHER, MEDICAID, SELFPAY ==
[2023-10-28] VITALS (8 sets, daily range): BP systolic 95–119; BP diastolic 50–57; PULSE 50–63; RESP 11–24; TEMP 37.1; O2SAT 96–100; BMI 17.2
--- NOTE | 2023-10-28 01:35 | DI.CT.S_ITS ---
PROCEDURE: CT HEAD/BRAIN WO CON INDICATIONS: L SIDED HEADACHE TECHNIQUE: Noncontrast 4.5 mm thick angled axial sections acquired from the foramen magnum to the vertex, with coronal and sagittal reformats. For radiation dose reduction, the following was used: automated exposure control, adjustment of mA and/or kV according to patient size. COMPARISON: CT, CT ANGIO HEAD AND NECK, 07/08/2022, 14:32. [facility], CT, CT HEAD/BRAIN WO CON, 04/12/2018, 17:39. FINDINGS: Image quality: Diagnostic. CSF spaces: Basal cisterns are patent. No extra-axial fluid collections. Ventricles are normal in size and shape. Brain: No midline shift. No intracranial masses or hemorrhage. Isbell-white matter interface is normal. Skull and face: Calvarium and visualized facial bones are intact, without suspicious lesions. Sinuses: Visualized sinuses and mastoids are clear. IMPRESSION: No acute intracranial pathology. Dictated by: Angelica Chacon M.D. on 10/28/2023 at 2:09 Approved by: Angelica Chacon M.D. on 10/28/2023 at 2:10
--- NOTE | 2023-10-28 01:36 | DI.RAD.S_ITS ---
PROCEDURE: XR CHEST 1V INDICATIONS: CHEST PAIN TECHNIQUE: One view of the chest was acquired. COMPARISON: [facility], CR, XR CHEST 1V, 07/08/2022, 13:44. FINDINGS: Surgical changes and devices: None. Lungs and pleura: Lungs are clear. No pleural effusions or pneumothorax. Mediastinum: Mediastinal contours appear normal. Heart size is normal. Bones and chest wall: No suspicious bony lesions. Overlying soft tissues appear unremarkable. IMPRESSION: No acute cardiopulmonary abnormality is seen. Dictated by: Angelica Chacon M.D. on 10/28/2023 at 2:08 Approved by: Angelica Chacon M.D. on 10/28/2023 at 2:09
--- NOTE | 2023-10-28 01:36 | ED_ITS ---
HPI - Neuro Symptoms/Deficit General Chief Complaint: Neuro Symptoms/Deficit Stated Complaint: having stroke like symptoms Time Seen by Provider: 10/28/23 01:21 Source: patient Mode of arrival: Ambulatory History of Present Illness HPI Narrative: 38yoF presents for transient L sided tingling/numbness in her face/arm. Patient was at the computer when she felt a sharp pain in her chest that went upwards. Subsequently felt the numbness/tingling in her L side. Currently no numbness, but she states she feels mild headache all over her head. On Anticoagulants: No Related Data Previous Rx's Medication Instructions Recorded amoxicillin 500 mg capsule 500 mg PO BID #14 caps 10/12/23 cephalexin 500 mg capsule 500 mg PO Q12H #10 caps 10/28/23 Allergies Allergy/AdvReac Type Severity Reaction Status Date / Time oxycodone [From Percocet] AdvReac Intermediate hives,itching, Verified 10/12/23 12:37 throat tightening, chest pain Opioids - Morphine Analogues AdvReac Hives Verified 10/12/23 12:37 Review of Systems Review of Systems Narrative: negative except as noted above Hematologic/Lymphatic On Anticoagulants: No Patient History Medical History (Updated 10/28/23 @ 04:06 by Dyan Pérez MD) History of drug abuse in remission Suicidal ideation Drug abuse Adjustment disorder Surgical History Status post dilation and curettage Family History Grandfather Prostate cancer Grandmother Breast cancer Diabetes mellitus Mother Chronic hepatitis B with cirrhosis Social History Smoking Status: Current every day smoker alcohol intake: current Smoking Status: Current every day smoker tobacco type: cigarettes and vaping alcohol intake frequency: holidays/special occasions only Substance Use Type: former substance user and methamphetamine Exam Initial Vital Signs Initial Vital Signs: Vital Signs Pulse Rate 59 L 10/28/23 01:17 Respiratory Rate 15 10/28/23 01:17 Pulse Oximetry 100 10/28/23 01:17 Oxygen Delivery Method Room Air 10/28/23 01:17 Const: Awake, alert, anxious, nontoxic in appearance Eyes: PERRL, EOMI, conjunctiva normal ENT: Atraumatic, dentition normal, mucous membranes moist Cardiac: regular rate, regular rhythm RESP: unlabored, clear bilaterally, no wheezing GI: Atraumatic, soft, nontender, nondistended, no rebound, no guarding MSK: Atraumatic, full range of motion, pulses equal Skin: Warm, Dry, intact, no rashes Neuro: AO x3, CN II-XII grossly intact, moves all extremities Psych: affect normal, mood normal, not suicidal, not homicidal Course Orders Ordered: Discontinued Medications Sodium Chloride (Normal Saline 0.9%) 1,000 mls @ 1,000 mls/hr IV BOLUS ONE Stop: 10/28/23 02:34 Last Infusion: 10/28/23 03:22 Dose: Infused Documented By: Admin: 10/28/23 01:42 Dose: 1,000 mls/hr Documented By: AYLIN Vital Signs Vital signs: Vital Signs - 8 hr 10/28/23 01:17 10/28/23 01:18 10/28/23 01:19 Temperature 98.8 F Pulse Rate 59 L 63 61 Respiratory Rate 15 16 15 Blood Pressure 119/57 L Pulse Oximetry 100 98 100 Oxygen Delivery Method Room Air Room Air Room Air 10/28/23 01:19 10/28/23 01:30 10/28/23 01:30 Temperature Pulse Rate 56 L Respiratory Rate 18 Blood Pressure 112/55 L 113/56 L Pulse Oximetry 98 Oxygen Delivery Method Room Air 10/28/23 01:54 10/28/23 01:54 10/28/23 02:00 Temperature Pulse Rate 55 L 50 L Respiratory Rate 11 L 18 Blood Pressure 104/54 L Pulse Oximetry 97 99 Oxygen Delivery Method Room Air Room Air 10/28/23 02:00 10/28/23 02:30 10/28/23 03:00 Temperature Pulse Rate 61 59 L Respiratory Rate 24 17 Blood Pressure 95/50 L Pulse Oximetry 97 96 Oxygen Delivery Method Room Air Room Air MDM - Neuro Symptoms/Deficit Lab Data 10/28/23 01:19 10/28/23 01:19 Labs: Lab Results 10/28/23 10/28/23 Range/Units 01:19 03:30 WBC 7.5 (4.5-11.0) X10^3/uL RBC 4.21 (4.0-5.2) X10^6/uL Hgb 13.6 (12.0-16.0) g/dL Hct 39.7 (36-46) % MCV 94.3 (80-100) fL MCH 32.2 (26-34) PG MCHC 34.2 (30-36) % RDW 12.9 (11.6-14.8) % Plt Count 253 (150-400) X10^3/uL Neut % (Auto) 43.9 L (50-75) % Lymph % (Auto) 42.6 H (25-40) % [place] % (Auto) 9.9 (3-14) % Eos % (Auto) 3.0 (2-4) % Baso % (Auto) 0.6 (0-2) % Neut # (Auto) 3300 (7191-5980) /uL Lymph # (Auto) 3200 (2695-5389) /uL [place] # (Auto) 700 (0-900) /uL Eos # (Auto) 200 (0-450) /uL Baso # (Auto) 0 (0-100) /uL Sodium 135 L (137-145) mmol/L Potassium 3.5 (3.4-5.1) mmol/L Chloride 100 (98-107) mmol/L Carbon Dioxide 27 (22-32) mmol/L BUN 12 (7-17) mg/dL Creatinine 0.62 (0.52-1.04) mg/dL Estimated GFR > 60 (>60) mL/min BUN/Creatinine Ratio 19.4 (6-22) Glucose 91 (70-100) mg/dL Calcium 9.3 (8.4-10.2) mg/dL Total Bilirubin 0.6 (0.2-1.3) mg/dL AST 25 (14-36) IU/L ALT 16 (<35) IU/L Alkaline Phosphatase 63 (38-126) U/L Total Creatine Kinase 66 (30-135) U/L Troponin I < 0.012 (0.01-0.034) ng/mL Total Protein 7.5 (6.3-8.2) g/dL Albumin 4.2 (3.5-5.0) g/dL Globulin 3.3 (1.7-4.1) g/dL Albumin/Globulin Ratio 1.3 (1.0-2.8) TSH 1.77 (0.47-4.68) uIU/mL Urine RBC None seen (0-5/HPF) Urine WBC 1-5/hpf (0-5/HPF) Ur Squamous Epith Cells 0-1 /hpf (0-5/HPF) Urine Bacteria Many (>30) H (None) Ur Culture Indicated? Specimen cultured Vol Urine Centrifuged 10ml (spun) Point of Care Testing Test Results Negative Urine Dip Bedside Urine Glucose Negative Bedside Urine Bilirubin - Negative Bedside Urine Ketone - Negative Urine Specific [place] 1.015 Bedside Urine Occult Blood - Negative Bedside Urine pH 6.5 Bedside Urine Protein - Negative Bedside Urine Urobilinogen - Negative Bedside Urine Nitrite + Positive Bedside Urine Leukocytes - Negative Esterase MDM Narrative Medical decision making narrative: Anxious but nontoxic patient with transient vague neurologic symptoms. NIH 0 on exam. Likely related to external stressors. CT negative for acute findings. Labs unremarkable. Patient remained asymptomatic throughout stay in department. Urine with markers of infection, we will discharge with antibiotics. PCP follow up advised Discharge Plan Departure Patient Disposition: Home Clinical Impression: Paresthesia, UTI (urinary tract infection) Instructions: DI for Urinary Tract Infection (UTI), DI for Numbness/Tingling Prescriptions: New cephalexin 500 mg capsule 500 mg PO Q12H Qty: 10 0RF No Action amoxicillin 500 mg capsule 500 mg PO BID Qty: 14 0RF Referrals: Aydee Sands ARNP [Primary Care Provider] - Stand Alone Forms: Patient Portal/API
[2023-10-28] MEDS: SODIUM CHLORIDE 0.9% 1,000 ML 1000 ML IV (01:42)
[2023-10-28 01:47] LABS: Add Manual Diff / Slide Review NO; Basophils Absolute Auto 0 /uL (0-100); Basophils Percent Auto 0.6 % (0-2); Eosinophils Absolute Auto 200 /uL (0-450); Hematocrit 39.7 % (36-46); Hemoglobin 13.6 g/dL (12.0-16.0); Lymphocytes Absolute Auto 3200 /uL (1100-4500); Lymphocytes Percent Auto 42.6 % (25-40); Mean Corpuscular HGB Conc 34.2 % (30-36); Mean Corpuscular Hemoglobin 32.2 PG (26-34); Mean Corpuscular Volume 94.3 fL (80-100); Monocytes Absolute Auto 700 /uL (0-900); Monocytes Percent Auto 9.9 % (3-14); Neutrophils Absolute Auto 3300 /uL (1500-7000); Neutrophils Percent Auto 43.9 % (50-75); Platelet Count 253 X10^3/uL (150-400); Red Blood Cell Count 4.21 X10^6/uL (4.0-5.2); Red Cell Distribution Width 12.9 % (11.6-14.8); White Blood Cell Count 7.5 X10^3/uL (4.5-11.0)
[2023-10-28 01:51] LABS: Creatine Kinase 66 U/L (30-135)
[2023-10-28 01:52] LABS: Alanine Aminotransferase 16 IU/L (<35); Albumin 4.2 g/dL (3.5-5.0); Albumin Globulin Ratio 1.3 (1.0-2.8); Alkaline Phosphatase 63 U/L (38-126); Aspartate Aminotransferase 25 IU/L (14-36); BUN Creatinine Ratio 19.4 (6-22); Bilirubin Total 0.6 mg/dL (0.2-1.3); Blood Urea Nitrogen 12 mg/dL (7-17); Calcium 9.3 mg/dL (8.4-10.2); Carbon Dioxide 27 mmol/L (22-32); Chloride 100 mmol/L (98-107); Estimated Glomerular Filt Rate > 60 mL/min (>60); Globulin 3.3 g/dL (1.7-4.1); Glucose 91 mg/dL (70-100); HEMOLYSIS 18 (0-50); Potassium 3.5 mmol/L (3.4-5.1); Sodium 135 mmol/L (137-145); Total Protein 7.5 g/dL (6.3-8.2)
[2023-10-28 02:03] LABS: Troponin I < 0.012 ng/mL (0.01-0.034)
[2023-10-28 02:23] LABS: Thyroid Stimulating Hormone 1.77 uIU/mL (0.47-4.68)
[2023-10-28 03:42] LABS: Urine Volume 10mL (spun)
[2023-10-28 03:50] LABS: Bacteria Urine Many (>30); Culture Indicated Urine Specimen Cultured; RBC Urine None Seen (0-5/HPF); Squamous Epithelial Cell Urine 0-1 /HPF (0-5/HPF); WBC Urine 1-5/HPF (0-5/HPF)
== END 2023-10-28 04:18 | disposition home or self-care (01) ==
PROVIDERS: Emergency Provider Emergency Medicine; PCP Internal Medicine
DX: N39.0 Urinary tract infection, site not specified (principal); R20.2 Paresthesia of skin; R07.9 Chest pain, unspecified; R29.700 NIHSS score 0
CPT/HCPCS: 36415; 70450; 71045; 80053; 81003; 81015; 81025; 82550; 84443; 84484; 85025; 87077; 87086; 87186; 93005; 96360; 96361; 99284

== ENCOUNTER 2023-11-14 22:16 | Emergency (ER) | payer OTHER, MEDICAID, SELFPAY ==
[2023-11-14 22:24] VITALS: BP 122/55; PULSE 97; RESP 16; TEMP 37; O2SAT 96; BMI 18.5
--- NOTE | 2023-11-14 22:25 | DI.RAD.S_ITS ---
PROCEDURE: XR CHEST 2V INDICATIONS: COUGH X 3 WKS TECHNIQUE: 2 views of the chest were acquired. COMPARISON: [facility], CR, XR CHEST 1V, 10/28/2023, 1:36. FINDINGS: Surgical changes and devices: None. Lungs and pleura: Lungs are clear. No pleural effusions or pneumothorax. Mediastinum: Mediastinal contours are normal. Heart size is normal. Bones and chest wall: No suspicious bony abnormalities. Soft tissues appear unremarkable. IMPRESSION: No acute cardiopulmonary abnormality is seen. Dictated by: Amberly Aguayo M.D. on 11/14/2023 at 23:46 Approved by: Amberly Aguayo M.D. on 11/14/2023 at 23:46
[2023-11-14 23:27] LABS: Adenovirus Not Detected (Not Detect); B. parapertussis Not Detected (Not Detecte); Bordetella pertussis Not Detected (Not Detect); Chlamydophila pneumoniae Not Detected (Not Detect); Coronavirus 229E Not Detected (Not Detect); Coronavirus HKU1 Not Detected (Not Detect); Coronavirus NL 63 Not Detected (Not Detect); Coronavirus OC43 Not Detected (Not Detect); Human Metapneumovirus Not Detected (Not Detect); Human Rhinovirus/Enterovirus Not Detected (Not Detect); Influenza A Not Detected (Not Detect); Influenza B Not Detected (Not Detect); Mycoplasma pneumoniae Not Detected (Not Detect); Parainfluenza Virus 1 Not Detected (Not Detect); Parainfluenza Virus 2 Not Detected (Not Detect); Parainfluenza Virus 3 Not Detected (Not Detect); Parainfluenza Virus 4 Not Detected (Not Detect); Respiratory Syncytial Virus Not Detected (Not Detect); SARS- CoV-2 Not Detected (Not Detecte)
--- NOTE | 2023-11-15 00:35 | ED.URI ---
HPI - URI/Sore Throat General Chief Complaint: Upper Respiratory Symptoms Stated Complaint: yellow flem/headache/trouble sleeping Time Seen by Provider: 11/14/23 22:25 Source: patient Mode of arrival: Ambulatory History of Present Illness HPI Narrative: 38-year-old female presents for persistent productive cough for 3 weeks. States that she was having trouble sleeping due to her cough and this is causing her to fear missing work. She states she is here today to ?get on top of it?. Related Data Previous Rx's Medication Instructions Recorded amoxicillin 500 mg capsule 500 mg PO BID #14 caps 10/12/23 cephalexin 500 mg capsule 500 mg PO Q12H #10 caps 10/28/23 benzonatate 200 mg capsule 200 mg PO BID-TID PRN cough #60 11/15/23 caps Allergies Allergy/AdvReac Type Severity Reaction Status Date / Time oxycodone [From Percocet] AdvReac Intermediate hives,itching, Verified 10/12/23 12:37 throat tightening, chest pain Opioids - Morphine Analogues AdvReac Hives Verified 10/12/23 12:37 Review of Systems Review of Systems Narrative: Negative except as noted above Patient History Medical History History of drug abuse in remission Suicidal ideation Drug abuse Adjustment disorder Surgical History Status post dilation and curettage Family History Grandfather Prostate cancer Grandmother Breast cancer Diabetes mellitus Mother Chronic hepatitis B with cirrhosis Social History Smoking Status: Current every day smoker alcohol intake: current Smoking Status: Current every day smoker tobacco type: vaping alcohol intake frequency: holidays/special occasions only Substance Use Type: methamphetamine Exam Initial Vital Signs Initial Vital Signs: Vital Signs Temperature 98.6 F 11/14/23 22:24 Pulse Rate 97 H 11/14/23 22:24 Respiratory Rate 16 11/14/23 22:24 Blood Pressure 122/55 L 11/14/23 22:24 Pulse Oximetry 96 11/14/23 22:24 Oxygen Delivery Method Room Air 11/14/23 22:24 Const: Awake, alert, no acute distress, nontoxic appearing Eyes: PERRL, EOMI, conjunctiva normal ENT: Mild fluid bulge behind right tympanic membrane, left tympanic membrane normal Cardiac: regular rate, regular rhythm RESP: unlabored, clear bilaterally, no wheezing GI: Atraumatic, soft, nontender, nondistended, no rebound, no guarding MSK: Atraumatic, full range of motion, pulses equal Skin: Warm, Dry, intact, no rashes Neuro: AO x3, CN II-XII grossly intact, moves all extremities Psych: affect normal, mood normal, not suicidal, not homicidal Course Orders Ordered: ED Orders 11/14/23 22:25 Chest [XR chest 2V] Stat 11/14/23 22:30 Respiratory Panel (Film Array) Stat Discontinued Medications Benzonatate (Benzonatate 100 Mg Capsule) 200 mg PO NOW ONE Stop: 11/15/23 00:36 Last Admin: 11/15/23 00:42 Dose: 200 mg Documented By: AYLIN Dexamethasone (Dexamethasone 10 Mg/Ml Vial) 10 mg PO NOW ONE Stop: 11/15/23 00:36 Last Admin: 11/15/23 00:44 Dose: 10 mg Documented By: AYLIN Vital Signs Vital signs: Vital Signs - 8 hr 11/14/23 22:24 11/15/23 00:46 Temperature 98.6 F Pulse Rate 97 H Respiratory Rate 16 23 Blood Pressure 122/55 L Pulse Oximetry 96 98 Oxygen Delivery Method Room Air Room Air MDM - URI/Sore Throat Lab Data Labs: Lab Results 11/14/23 Range/Units 22:30 Chlamy pneumoniae PCR Not detected (Not Detect) Adenovirus (PCR) Not detected (Not Detect) B.parapertussis DNA PCR Not detected (Not Detecte) Coronavirus OC43 (PCR) Not detected (Not Detect) Coronavirus HKU1 (PCR) Not detected (Not Detect) Coronavirus 229E (PCR) Not detected (Not Detect) SARS-CoV-2 (PCR) Not detected (Not Detecte) Coronavirus NL63 (PCR) Not detected (Not Detect) Human Metapneumovir PCR Not detected (Not Detect) Influenza Type A (PCR) Not detected (Not Detect) Influenza Type B (PCR) Not detected (Not Detect) M. pneumoniae (PCR) Not detected (Not Detect) Parainfluenza 1 (PCR) Not detected (Not Detect) Parainfluenza 2 (PCR) Not detected (Not Detect) Parainfluenza 3 (PCR) Not detected (Not Detect) Parainfluenza 4 (PCR) Not detected (Not Detect) RSV (PCR) Not detected (Not Detect) Entero/Rhino (PCR) Not detected (Not Detect) MDM Narrative Medical decision making narrative: Well-appearing patient with several weeks of persistent cough. Vital signs unremarkable on room air. Lungs clear to auscultation bilaterally. Two-view chest x-ray negative for acute findings. Respiratory panel negative for common pathogens. Patient given dose of Decadron, cough medication sent to pharmacy of choice. She likely has acute bronchitis and was advised of the anticipated recovery course of this condition. ED return precautions discussed at bedside. Patient expressed understanding of the plan and is in agreement at this time. All questions answered at the time of discharge. Discharge Plan Departure Patient Disposition: Home Clinical Impression: Bronchitis Instructions: DI for Acute Bronchitis Prescriptions: New benzonatate 200 mg capsule 200 mg PO BID-TID PRN (Reason: cough) Qty: 60 0RF No Action amoxicillin 500 mg capsule 500 mg PO BID Qty: 14 0RF cephalexin 500 mg capsule 500 mg PO Q12H Qty: 10 0RF Referrals: Aydee Sands ARNP [Primary Care Provider] - Stand Alone Forms: Patient Portal/API
[2023-11-15] MEDS: BENZONATATE 100 MG CAPSULE 200 MG PO (00:42)
[2023-11-15] MEDS: DEXAMETHASONE 10 MG/ML VIAL PO (00:44)
[2023-11-15 00:46] VITALS: RESP 23; O2SAT 98
== END 2023-11-15 00:48 | disposition home or self-care (01) ==
PROVIDERS: Emergency Provider Emergency Medicine; PCP Internal Medicine
DX: J40 Bronchitis, not specified as acute or chronic (principal); F17.200 Nicotine dependence, unspecified, uncomplicated
CPT/HCPCS: 71046; 87633; 99283; J1100

== ENCOUNTER → 2024-02-15 10:19 | Outpatient (CLI) | payer OTHER, MEDICAID, SELFPAY ==
[2024-02-15 11:47] LABS: COVID-19 CEPHEID 4-PLEX PCR Negative (Negative); Influenza A - CEPHEID Flu A NEGATIVE (NEGATIVE); Influenza B - CEPHEID Flu B NEGATIVE (NEGATIVE); Respiratory Syncytial Virus Negative (Negative)
== END ==
PROVIDERS: PCP Internal Medicine; Visit Provider Physician Assistant
DX: T14.8XXA Other injury of unspecified body region, initial encounter (principal); R05.1 Acute cough; J32.9 Chronic sinusitis, unspecified
CPT/HCPCS: 0241U; 36415; 86695; 86696; 87070; 87205

== ENCOUNTER → 2024-02-15 10:47 | Outpatient (CLI) | payer OTHER, MEDICAID, SELFPAY ==
[2024-02-16 18:16] LABS: HSV 2 IGG AB < 0.91 index (0.00-0.90)
== END ==
LOC: LAB 10:48
PROVIDERS: PCP Internal Medicine; Referring Provider Physician Assistant; Visit Provider Physician Assistant
DX: J32.9 Chronic sinusitis, unspecified (principal)
CPT/HCPCS: 36415; 86695; 86696

== ENCOUNTER 2024-05-04 22:47 | Emergency (ER) | payer OTHER, MEDICAID, SELFPAY ==
[2024-05-04 22:56] VITALS: BP 125/61; PULSE 74; RESP 17; TEMP 36.7; O2SAT 97; BMI 18.8
== END 2024-05-05 | disposition left against medical advice (07) ==
PROVIDERS: Emergency Provider Emergency Medicine; PCP Internal Medicine
DX: S61.412A Laceration without foreign body of left hand, initial encounter (principal)
CPT/HCPCS: 99281

== ENCOUNTER → 2024-09-04 14:54 | Outpatient (CLI) | payer OTHER, MEDICAID, SELFPAY ==
[2024-09-04 16:06] LABS: Influenza A - CEPHEID Flu A NEGATIVE (NEGATIVE); Influenza B - CEPHEID Flu B NEGATIVE (NEGATIVE); Respiratory Syncytial Virus Negative (Negative)
[2024-09-04 16:07] LABS: COVID-19 CEPHEID 4-PLEX PCR POSITIVE (Negative)
== END ==
PROVIDERS: PCP Internal Medicine; Visit Provider Student in an Organized Health Care Education/Training Program
DX: J02.9 Acute pharyngitis, unspecified (principal); R05.1 Acute cough
CPT/HCPCS: 87635; 87400; 87420; 0241U; 87070; 87880

== ENCOUNTER → 2024-12-08 10:13 | Outpatient (CLI) | payer OTHER, SELFPAY ==
[2024-12-08 14:03] LABS: Influenza A - CEPHEID Flu A NEGATIVE (NEGATIVE); Influenza B - CEPHEID Flu B NEGATIVE (NEGATIVE); Respiratory Syncytial Virus Negative (Negative)
[2024-12-08 14:26] LABS: COVID-19 CEPHEID 4-PLEX PCR Negative (Negative)
== END ==
PROVIDERS: PCP Internal Medicine; Visit Provider Nurse Practitioner Family
DX: J02.9 Acute pharyngitis, unspecified (principal); R05.1 Acute cough
CPT/HCPCS: 87635; 87400 ×2; 87420; 0241U; 87070

== ENCOUNTER 2025-04-04 11:26 | Emergency (ER) | payer OTHER, SELFPAY ==
[2025-04-04 12:28] VITALS: BP 120/71; PULSE 68; RESP 18; TEMP 36.3; O2SAT 96; BMI 18.5
--- NOTE | 2025-04-04 12:52 | PC.NURSE ---
The patient refused the tetanus vaccine citing that she wants to know if she has it before getting the vaccine.
--- NOTE | 2025-04-04 12:57 | PC.NURSE ---
updated about vaccine refusal. Ordered consult with infectious disease.
[2025-04-04 13:03] LABS: Add Manual Diff / Slide Review NO; Hematocrit 43.1 % (36-46); Hemoglobin 14.5 g/dL (12.0-16.0); Lymphocytes Absolute Auto 1800 /uL (1100-4500); Mean Corpuscular HGB Conc 33.6 % (30-36); Mean Corpuscular Hemoglobin 31.6 PG (26-34); Mean Corpuscular Volume 94.1 fL (80-100); Platelet Count 256 X10^3/uL (150-400)
[2025-04-04 13:15] LABS: Lactate (Lactic Acid) 1.0 mmol/L (0.7-2.1)
[2025-04-04 13:16] LABS: Alanine Aminotransferase 16 IU/L (<35); Albumin 4.4 g/dL (3.5-5.0); Albumin Globulin Ratio 1.3 (1.0-2.8); Alkaline Phosphatase 54 U/L (38-126); Blood Urea Nitrogen 13 mg/dL (7-17); Calcium 9.7 mg/dL (8.4-10.2); Carbon Dioxide 31 mmol/L (22-32); Chloride 100 mmol/L (98-107); Estimated Glomerular Filt Rate > 60 mL/min (>60); Globulin 3.3 g/dL (1.7-4.1); Glucose 102 mg/dL (70-99); HEMOLYSIS < 15 (0-50); Potassium 4.0 mmol/L (3.4-5.1); Sodium 137 mmol/L (137-145); Total Protein 7.7 g/dL (6.3-8.2)
[2025-04-04 13:33] LABS: Procalcitonin < 0.030 ng/mL (<0.5)
--- NOTE | 2025-04-04 14:53 | ED_ITS ---
HPI - Recheck/Abnormal Lab/Rx <Shital Venegas PA-C - Last Filed: 04/04/25 19:50> General Chief Complaint: Recheck/Abnormal Lab/Rx Stated Complaint: Stiff and body ache, x4 days Time Seen by Provider: 04/04/25 14:26 Source: patient Mode of arrival: Ambulatory History of Present Illness HPI narrative: Ms. Olivarez is a pleasant 39-year-old female who presents to the emergency department for body aches x4 days. Patient is concerned for possible tetanus exposure. For the last month she has been taking care of a sick horse with presumed tetanus infection and has been treating her as such. She has been administering oral and rectal medications without using gloves. The horse recently . Patient's last tetanus shot was in January of 2015. About 3-4 days ago she started experiencing bilateral back soreness, soreness of the right side of her neck and right shoulder, and knee soreness as well. She comes to the emergency department concerned that these symptoms could be related to tetanus. Describes her symptoms as feeling like when she had COVID in the past. She reports that she is also starting to develop a cough. She has no known open wounds however states that she did have her hands in the horses body and could have small cuts around her nailbeds. She has having no muscle rigidity, dysphagia, fevers, abdominal pain, vomiting, dysuria or hematuria. Related Data Previous Rx's ?Medication ?Instructions ?Recorded benzonatate 200 mg capsule 200 mg PO BID PRN cough #28 caps 12/08/24 Allergies Allergy/AdvReac Type Severity Reaction Status Date / Time oxycodone (From Percocet) AdvReac Intermediate hives,itching, Verified 12/08/24 10:10 throat tightening, chest pain Opioids - Morphine Analogues AdvReac Hives Verified 12/08/24 10:10 Patient History <Shital Venegas PA-C - Last Filed: 04/04/25 19:50> Medical History History of drug abuse in remission Suicidal ideation Drug abuse Adjustment disorder Surgical History Status post dilation and curettage Family History Grandfather Prostate cancer Grandmother Breast cancer Diabetes mellitus Mother Chronic hepatitis B with cirrhosis Social History alcohol intake: current tobacco type: vaping alcohol intake frequency: a few times a month Exam <Shital Venegas PA-C - Last Filed: 04/04/25 19:50> Narrative Exam Narrative: GENERAL: 39 year old patient appears stated age. Well-developed patient, in no acute distress. HEAD: Atraumatic. Normocephalic. EYES: PERRL. Extraocular motions intact. No scleral icterus. No injection or drainage. ENT: Nose without bleeding, purulent drainage. Throat without erythema, tonsillar hypertrophy or exudate. Airway patent. NECK: Trachea midline. Cervical ROM intact. Negative meningeal signs. Subjective tenderness to palpation of right superior trapezius muscle extending to right shoulder. CARDIOVASCULAR: Regular rate and rhythm. RESPIRATORY: ?Nonlabored respirations. ?Speaking in clear, full sentences. ?Clear to auscultation. Breath sounds equal bilaterally. No wheezes, rales, or rhonchi. ? GASTROINTESTINAL: Abdomen soft, non-tender, nondistended. EXTREMITIES: No edema or joint tenderness. BACK: No midline spinal tenderness. There is subjective tenderness to palpation of the bilateral lumbar paraspinal muscle groups. NEURO: AOx3. ?Clear speech. ?Moves all 4 extremities appropriately. No ankle clonus. Normal bilateral patellar reflexes. SKIN: No rash or erythema of visible areas Initial Vital Signs Initial Vital Signs: Vital Signs Temperature 97.3 F L 04/04/25 12:28 Pulse Rate 68 04/04/25 12:28 Respiratory Rate 18 04/04/25 12:28 Blood Pressure 120/71 04/04/25 12:28 Pulse Oximetry 96 04/04/25 12:28 Oxygen Delivery Method Room Air 04/04/25 12:28 <José Bunch MD - Last Filed: 04/07/25 18:41> Initial Vital Signs Initial Vital Signs: Vital Signs Temperature 97.3 F L 04/04/25 12:28 Pulse Rate 68 04/04/25 12:28 Respiratory Rate 18 04/04/25 12:28 Blood Pressure 120/71 04/04/25 12:28 Pulse Oximetry 96 04/04/25 12:28 Oxygen Delivery Method Room Air 04/04/25 12:28 Course <Shital Venegas PA-C - Last Filed: 04/04/25 19:50> Orders Ordered: Discontinued Medications Diphtheria/Tetanus/Acell Pertussis (Tet,Diph,Pertuss(Acell),Vac/Pf 0.5 Ml Syringe) 0.5 ml IM .ONCE ONE Stop: 04/04/25 12:42 Last Admin: 04/04/25 12:58 Dose: Not Given Documented By: LAZARUS Diphtheria/Tetanus/Acell Pertussis (Tet,Diph,Pertuss(Acell),Vac/Pf 0.5 Ml Syringe) 0.5 ml IM .ONCE ONE Stop: 04/04/25 15:34 Last Admin: 04/04/25 16:03 Dose: 0.5 ml Documented By: DAMION Sodium Chloride (Normal Saline 0.9%) 1,000 mls @ 1,000 mls/hr IV BOLUS ONE Stop: 04/04/25 16:32 Last Infusion: 04/04/25 17:04 Dose: Infused Documented By: Admin: 04/04/25 16:04 Dose: 1,000 mls/hr Documented By: DAMION Ketorolac Tromethamine (Ketorolac 30 Mg/Ml Vial) 15 mg IV NOW ONE Stop: 04/04/25 15:34 Last Admin: 04/04/25 16:03 Dose: 15 mg Documented By: DAMION Methocarbamol (Methocarbamol 500 Mg Tablet) 1,000 mg PO NOW ONE Stop: 04/04/25 17:31 Last Admin: 04/04/25 17:55 Dose: 1,000 mg Documented By: DAMION Vital Signs Vital signs: Vital Signs - 8 hr 04/04/25 12:28 04/04/25 17:59 04/04/25 18:09 Temperature 97.3 F L 97.2 F L Pulse Rate 68 54 L Respiratory Rate 18 19 16 Blood Pressure 120/71 113/54 L Pulse Oximetry 96 99 Oxygen Delivery Method Room Air Room Air <José Bunch MD - Last Filed: 04/07/25 18:41> Orders Ordered: Discontinued Medications Diphtheria/Tetanus/Acell Pertussis (Tet,Diph,Pertuss(Acell),Vac/Pf 0.5 Ml Syringe) 0.5 ml IM .ONCE ONE Stop: 04/04/25 12:42 Last Admin: 04/04/25 12:58 Dose: Not Given Documented By: LAZARUS Diphtheria/Tetanus/Acell Pertussis (Tet,Diph,Pertuss(Acell),Vac/Pf 0.5 Ml Syringe) 0.5 ml IM .ONCE ONE Stop: 04/04/25 15:34 Last Admin: 04/04/25 16:03 Dose: 0.5 ml Documented By: DAMION Sodium Chloride (Normal Saline 0.9%) 1,000 mls @ 1,000 mls/hr IV BOLUS ONE Stop: 04/04/25 16:32 Last Infusion: 04/04/25 17:04 Dose: Infused Documented By: Admin: 04/04/25 16:04 Dose: 1,000 mls/hr Documented By: DAMION Ketorolac Tromethamine (Ketorolac 30 Mg/Ml Vial) 15 mg IV NOW ONE Stop: 04/04/25 15:34 Last Admin: 04/04/25 16:03 Dose: 15 mg Documented By: DAMION Methocarbamol (Methocarbamol 500 Mg Tablet) 1,000 mg PO NOW ONE Stop: 04/04/25 17:31 Last Admin: 04/04/25 17:55 Dose: 1,000 mg Documented By: DAMION Vital Signs Vital signs: Vital Signs - 8 hr 04/04/25 12:28 04/04/25 17:59 04/04/25 18:09 Temperature 97.3 F L 97.2 F L Pulse Rate 68 54 L Respiratory Rate 18 19 16 Blood Pressure 120/71 113/54 L Pulse Oximetry 96 99 Oxygen Delivery Method Room Air Room Air MDM - Recheck/Abnormal Lab/Rx <Shital Venegas PA-C - Last Filed: 04/04/25 19:50> Medical Records Attestation: I reviewed the patient's medical records. Lab Data 04/04/25 12:52 04/04/25 12:52 Labs: Lab Results 04/04/25 04/04/25 Range/Units 12:52 15:13 WBC 7.2 (4.5-11.0) X10^3/uL RBC 4.58 (4.0-5.2) X10^6/uL Hgb 14.5 (12.0-16.0) g/dL Hct 43.1 (36-46) % MCV 94.1 (80-100) fL MCH 31.6 (26-34) PG MCHC 33.6 (30-36) % RDW 13.5 (11.6-14.8) % Plt Count 256 (150-400) X10^3/uL Neut % (Auto) 66.7 (50-75) % Lymph % (Auto) 24.5 L (25-40) % [place] % (Auto) 7.2 (3-14) % Eos % (Auto) 1.0 L (2-4) % Baso % (Auto) 0.6 (0-2) % Neut # (Auto) 4800 (7230-1821) /uL Lymph # (Auto) 1800 (1128-1026) /uL [place] # (Auto) 500 (0-900) /uL Eos # (Auto) 100 (0-450) /uL Baso # (Auto) 0 (0-100) /uL Sodium 137 (137-145) mmol/L Potassium 4.0 (3.4-5.1) mmol/L Chloride 100 (98-107) mmol/L Carbon Dioxide 31 (22-32) mmol/L BUN 13 (7-17) mg/dL Creatinine 0.70 (0.52-1.04) mg/dL Estimated GFR > 60 (>60) mL/min BUN/Creatinine Ratio 18.6 (6-22) Glucose 102 H (70-99) mg/dL Lactate 1.0 (0.7-2.1) mmol/L Calcium 9.7 (8.4-10.2) mg/dL Total Bilirubin 0.5 (0.2-1.3) mg/dL AST 25 (14-36) IU/L ALT 16 (<35) IU/L Alkaline Phosphatase 54 (38-126) U/L Total Protein 7.7 (6.3-8.2) g/dL Albumin 4.4 (3.5-5.0) g/dL Globulin 3.3 (1.7-4.1) g/dL Albumin/Globulin Ratio 1.3 (1.0-2.8) Procalcitonin < 0.030 (<0.5) ng/mL Chlamy pneumoniae PCR Not detected (Not Detect) Adenovirus (PCR) Not detected (Not Detect) B. pertussis DNA (PCR) Not detected (Not Detect) B.parapertussis DNA PCR Not detected (Not Detecte) Coronavirus OC43 (PCR) Not detected (Not Detect) Coronavirus HKU1 (PCR) Not detected (Not Detect) Coronavirus 229E (PCR) Not detected (Not Detect) SARS-CoV-2 (PCR) Not detected (Not Detecte) Coronavirus NL63 (PCR) Not detected (Not Detect) Human Metapneumovir PCR Not detected (Not Detect) Influenza Type A (PCR) Not detected (Not Detect) Influenza Type B (PCR) Not detected (Not Detect) M. pneumoniae (PCR) Not detected (Not Detect) Parainfluenza 1 (PCR) Not detected (Not Detect) Parainfluenza 2 (PCR) Not detected (Not Detect) Parainfluenza 3 (PCR) Not detected (Not Detect) Parainfluenza 4 (PCR) Not detected (Not Detect) RSV (PCR) Not detected (Not Detect) Entero/Rhino (PCR) Not detected (Not Detect) Point of Care Testing Test Results Negative Urine Dip Bedside Urine Glucose Negative Bedside Urine Bilirubin - Negative Bedside Urine Ketone - Negative Urine Specific [place] 1.025 Bedside Urine Occult Blood - Negative Bedside Urine pH 6.0 Bedside Urine Protein - Negative Bedside Urine Urobilinogen - Negative Bedside Urine Nitrite - Negative Bedside Urine Leukocytes - Negative Esterase Imaging Data Chest x-ray: Radiologist's Impression: PROCEDURE: XR CHEST 2V INDICATIONS: cough sob TECHNIQUE: 2 views of the chest were acquired. COMPARISON: [facility], , XR CHEST 2V, 11/14/2023, 22:29. FINDINGS: Surgical changes and devices: None. Lungs and pleura: Lungs are clear. No pleural effusions or pneumothorax. Mediastinum: Mediastinal contours are normal. Heart size is normal. Bones and chest wall: No suspicious bony abnormalities. Soft tissues appear unremarkable. IMPRESSION: No acute pulmonary process. Dictated by: Carla Kc M.D. on 04/04/2025 at 15:40 Approved by: Carla Kc M.D. on 04/04/2025 at 15:40 MDM Narrative Medical decision making narrative: 39-year-old female who presents to the emergency department for body aches x4 days. Patient is concerned for possible tetanus exposure. Differential diagnosis includes but isn't limited to musculoskeletal pain, myalgias, muscle spasms, viral syndrome, electrolyte abnormality, tetanus exposure, etc. On exam the patient is in no acute distress, nontoxic appearing, all vital signs within normal limits. Physical exam reveals bilateral lumbar paraspinal muscle tenderness, negative meningeal signs, lung sounds are clear, no rigidity. Patient has had possible exposure to feces/secretions of an animal with possible tetanus infection. She has no penetrating injuries or open wounds. Her last tetanus shot was 10 years ago. Labs were initially obtained in triage, I did consult with Infectious Disease Dr. Randle, who discussed that tetanus is a clinical diagnosis and there is not a blood test we can order at this time that would come back within a reasonable amount of time, if the patient is experiencing signs concerning for tetanus such as muscle rigidity, dysphagia or other concerns then she will need to be treated with tetanus immunoglobulin during hospital admission. He explained that this is unlikely without a wound or puncture injury. Patient's lab work was overall normal with normal WBC count 7.2, hemoglobin 14.5, platelets 256, sodium 137, potassium 4.0, BUN 13 creatinine 0.70, glucose 102, normal LFTs, negative procalcitonin, negative lactate, negative urinalysis, negative viral swab, negative chest x-ray. She was treated with IV Toradol and IV fluids in addition to updating her Tdap vaccine when she was at first reluctant to as she states that she did not want the vaccine unless we can prove that she had tetanus. I had an extensive discussion with the patient and her spouse that tetanus is a clinical diagnosis and while at this time her physical exam and workup are extremely reassuring, she will need to return to the emergency department immediately if she were to develop any new or worsening symptoms such as muscle rigidity, spasms, neck rigidity or other concerns. Patient would like to be discharged at this time, recommended rest, hydration, ibuprofen, Tylenol and strict ED return precautions. She verbalized understanding of all information agreeable with the plan. She is ambulatory and stable for discharge home. <José Bunch MD - Last Filed: 04/07/25 18:41> Lab Data Labs: Lab Results 04/04/25 04/04/25 Range/Units 12:52 15:13 WBC 7.2 (4.5-11.0) X10^3/uL RBC 4.58 (4.0-5.2) X10^6/uL Hgb 14.5 (12.0-16.0) g/dL Hct 43.1 (36-46) % MCV 94.1 (80-100) fL MCH 31.6 (26-34) PG MCHC 33.6 (30-36) % RDW 13.5 (11.6-14.8) % Plt Count 256 (150-400) X10^3/uL Neut % (Auto) 66.7 (50-75) % Lymph % (Auto) 24.5 L (25-40) % [place] % (Auto) 7.2 (3-14) % Eos % (Auto) 1.0 L (2-4) % Baso % (Auto) 0.6 (0-2) % Neut # (Auto) 4800 (6116-9556) /uL Lymph # (Auto) 1800 (5327-7468) /uL [place] # (Auto) 500 (0-900) /uL Eos # (Auto) 100 (0-450) /uL Baso # (Auto) 0 (0-100) /uL Sodium 137 (137-145) mmol/L Potassium 4.0 (3.4-5.1) mmol/L Chloride 100 (98-107) mmol/L Carbon Dioxide 31 (22-32) mmol/L BUN 13 (7-17) mg/dL Creatinine 0.70 (0.52-1.04) mg/dL Estimated GFR > 60 (>60) mL/min BUN/Creatinine Ratio 18.6 (6-22) Glucose 102 H (70-99) mg/dL Lactate 1.0 (0.7-2.1) mmol/L Calcium 9.7 (8.4-10.2) mg/dL Total Bilirubin 0.5 (0.2-1.3) mg/dL AST 25 (14-36) IU/L ALT 16 (<35) IU/L Alkaline Phosphatase 54 (38-126) U/L Total Protein 7.7 (6.3-8.2) g/dL Albumin 4.4 (3.5-5.0) g/dL Globulin 3.3 (1.7-4.1) g/dL Albumin/Globulin Ratio 1.3 (1.0-2.8) Procalcitonin < 0.030 (<0.5) ng/mL Chlamy pneumoniae PCR Not detected (Not Detect) Adenovirus (PCR) Not detected (Not Detect) B. pertussis DNA (PCR) Not detected (Not Detect) B.parapertussis DNA PCR Not detected (Not Detecte) Coronavirus OC43 (PCR) Not detected (Not Detect) Coronavirus HKU1 (PCR) Not detected (Not Detect) Coronavirus 229E (PCR) Not detected (Not Detect) SARS-CoV-2 (PCR) Not detected (Not Detecte) Coronavirus NL63 (PCR) Not detected (Not Detect) Human Metapneumovir PCR Not detected (Not Detect) Influenza Type A (PCR) Not detected (Not Detect) Influenza Type B (PCR) Not detected (Not Detect) M. pneumoniae (PCR) Not detected (Not Detect) Parainfluenza 1 (PCR) Not detected (Not Detect) Parainfluenza 2 (PCR) Not detected (Not Detect) Parainfluenza 3 (PCR) Not detected (Not Detect) Parainfluenza 4 (PCR) Not detected (Not Detect) RSV (PCR) Not detected (Not Detect) Entero/Rhino (PCR) Not detected (Not Detect) Point of Care Testing Test Results Negative Urine Dip Bedside Urine Glucose Negative Bedside Urine Bilirubin - Negative Bedside Urine Ketone - Negative Urine Specific [place] 1.025 Bedside Urine Occult Blood - Negative Bedside Urine pH 6.0 Bedside Urine Protein - Negative Bedside Urine Urobilinogen - Negative Bedside Urine Nitrite - Negative Bedside Urine Leukocytes - Negative Esterase Discharge Plan Departure Patient Disposition: Home Clinical Impression: Generalized body aches Low back pain Qualifiers: Chronicity: acute Back pain laterality: bilateral Sciatica presence: without sciatica Qualified Code(s): M54.50 - Low back pain, unspecified Instructions: DI for Muscle Spasm Activity Restrictions/Additional Instructions: Dear Sher, Thank you for coming to the emergency department. Today you were evaluated for body aches, muscle pain, and tetanus exposure. There is not a specific blood test for tetanus we are able to obtain today. Your lab work including a complete blood cell count, complete metabolic panel, procalcitonin, lactate, viral panel were all normal. Your chest x-ray did not show any signs of infection. I discussed your case with infectious disease Dr. Randle. At this time you are not exhibiting any symptoms concerning for acute tenderness infection. I would like you to rest, hydrate, use ibuprofen and Tylenol to help with the pains and follow up with your primary care doctor if your symptoms improve. Please return to the emergency department immediately if you develop any new or worsening symptoms, fevers, muscle rigidity or other concerns. Please take Ibuprofen (Motrin/Advil) or Acetaminophen (Tylenol) for pain. These are available over the counter. You may take Ibuprofen 600 mg every 8 hours with food for pain. You may also take Acetaminophen 650 mg every 4-6 hours for pain. Do not exceed 3000 mg of Tylenol a day as this can cause liver damage. Do not drink alcohol with either of these medications. Your Tdap vaccine was updated today. Please follow up with your primary care doctor within the next 2-3 days for ER follow-up. (If you do not have a PCP you can call [phone]. ?to schedule an appointment with an [facility] Primary Care Provider) IF YOU DEVELOP ANY NEW OR WORSENING SYMPTOMS, RETURN TO THE ER! Please read the attached instructions, they highlight more specific treatments and interventions for you at home. Thank you for letting me participate in your care, Shital Venegas PA-C Prescriptions: No Action benzonatate 200 mg capsule 200 mg PO BID PRN (Reason: cough) Qty: 28 0RF Referrals: Aydee Sands ARNP [Primary Care Provider, Family Practice] Stand Alone Forms: Patient Portal/API ED Sign-out <José Bunch MD - Last Filed: 04/07/25 18:41> Cosign ED Attending Brian Attestation: I was immediately available in the department for consultation. ?This documentation has been reviewed and I agree with assessment and plan. Supervised by José Bunch MD
--- NOTE | 2025-04-04 15:08 | DI.RAD.S_ITS ---
PROCEDURE: XR CHEST 2V INDICATIONS: cough sob TECHNIQUE: 2 views of the chest were acquired. COMPARISON: [facility], CR, XR CHEST 2V, 11/14/2023, 22:29. FINDINGS: Surgical changes and devices: None. Lungs and pleura: Lungs are clear. No pleural effusions or pneumothorax. Mediastinum: Mediastinal contours are normal. Heart size is normal. Bones and chest wall: No suspicious bony abnormalities. Soft tissues appear unremarkable. IMPRESSION: No acute pulmonary process. Dictated by: Carla Kc M.D. on 04/04/2025 at 15:40 Approved by: Carla Kc M.D. on 04/04/2025 at 15:40
[2025-04-04] MEDS: TET,DIPH,PERTUSS(ACELL),VAC/PF 0.5 ML SYRINGE IM (16:03)
[2025-04-04] MEDS: KETOROLAC 30 MG/ML VIAL 15 MG IV (16:03)
[2025-04-04] MEDS: SODIUM CHLORIDE 0.9% 1,000 ML 1000 ML IV (16:04)
[2025-04-04 16:16] LABS: Coronavirus NL 63 Not Detected (Not Detect); SARS- CoV-2 Not Detected (Not Detecte)
[2025-04-04 17:59] VITALS: BP 113/54; PULSE 54; RESP 19; TEMP 36.2; O2SAT 99
[2025-04-04 18:09] VITALS: RESP 16
== END 2025-04-04 18:17 | disposition home or self-care (01) ==
PROVIDERS: Emergency Medicine; Emergency Provider Physician Assistant; PCP Internal Medicine
DX: M54.50 Low back pain, unspecified (principal); M54.2 Cervicalgia; R06.02 Shortness of breath; M25.511 Pain in right shoulder; Z23 Encounter for immunization
CPT/HCPCS: 36415; 71046; 80053; 81003; 81025; 83605; 84145; 85025; 87633; 90471; 96361; 96374; 99284; 90715; J1885

== ENCOUNTER 2025-07-09 14:01 | Emergency (ER) | payer OTHER, SELFPAY ==
[2025-07-09 14:20] VITALS: BP 122/69; PULSE 59; RESP 18; TEMP 37.4; O2SAT 99; BMI 22.4
--- NOTE | 2025-07-09 16:24 | ED.DENTAL ---
HPI - Dental/Oral General Chief complaint: Dental/Oral Stated complaint: Tooth pain x 1 day Time Seen by Provider: 07/09/25 15:28 Source: patient Mode of arrival: Ambulatory History of Present Illness HPI Narrative: 40-year-old female patient, otherwise healthy, who has had off and on problems with a right upper molar causing pain since April. She thinks she might have re-injured it or fractured part of it eating last night and has worsening pain and is requesting an antibiotic and some pain medication until she can see her dentist tomorrow. Related Data Previous Rx's ?Medication ?Instructions ?Recorded prednisone 20 mg tablet 20 mg PO DAILY Pruritus #11 tabs 05/27/25 amoxicillin 875 mg-potassium 1 tab PO BID #14 tabs 07/09/25 clavulanate 125 mg tablet tramadol 50 mg tablet 50 mg PO Q6H PRN pain #10 tabs 07/09/25 Allergies Allergy/AdvReac Type Severity Reaction Status Date / Time oxycodone (From Percocet) AdvReac Intermediate hives,itching, Verified 05/27/25 18:27 throat tightening, chest pain Opioids - Morphine Analogues AdvReac Hives Verified 05/27/25 18:27 Review of Systems Review of Systems ROS Unobtainable: All systems reviewed & are unremarkable except as noted in HPI and below ENT Ears, Nose, Mouth, and Throat: Reports as per HPI Patient History Medical History (Updated 07/09/25 @ 16:30 by Tan James MD) History of drug abuse in remission Suicidal ideation Drug abuse Adjustment disorder Surgical History Status post dilation and curettage Family History Grandfather Prostate cancer Grandmother Breast cancer Diabetes mellitus Mother Chronic hepatitis B with cirrhosis Social History alcohol intake: current tobacco type: vaping alcohol intake frequency: a few times a month Exam Narrative Exam Narrative: General: Alert and conversant. Mild distress. Appears well nourished and well hydrated Craniofacial: No evidence of trauma. Nontender and no swelling. Eyes: PERRLA EOMI conjunctiva clear HEENT: Right upper back molar has fracture and cavity in his tender with no surrounding swelling. Oropharynx clear with no swelling, exudate or asymmetry of the pharynx. Nares clear. No sinus tenderness Neck: No tenderness or adenopathy. No meningismus. No JVD Lungs: Nonlabored respiration. Neuro: Alert and oriented. Cranial nerves, motor, sensory and cerebellar all grossly intact. No focal deficit Skin: Warm and normal color. No rashes Psychological: Normal affect and interaction. No evidence of delusion or psychosis. Normal mood. Initial Vital Signs Initial Vital Signs: Vital Signs Temperature 99.3 F 07/09/25 14:20 Pulse Rate 59 L 07/09/25 14:20 Respiratory Rate 18 07/09/25 14:20 Blood Pressure 122/69 07/09/25 14:20 Pulse Oximetry 99 07/09/25 14:20 Oxygen Delivery Method Room Air 07/09/25 14:20 Course Vital Signs Vital signs: Vital Signs - 8 hr 07/09/25 16:34 Pulse Rate 82 Blood Pressure 140/63 Pulse Oximetry 100 Oxygen Delivery Method Room Air MDM - Dental/Oral MDM Narrative Medical decision making narrative: Worsening and exacerbation of right upper back molar pain with fracture. Possible infection. Patient given a prescription for Augmentin and tramadol along with ibuprofen for pain. She is to follow up with a dentist tomorrow for which she has an appointment. Return to the ER if worse Discharge Plan Departure Patient Disposition: Home Clinical Impression: Pain, dental Instructions: DI for Dental Pain Activity Restrictions/Additional Instructions: Plan: Augmentin prescription for possible infection Use ibuprofen, 600 mg up to 4 times a day along with tramadol prescription for pain. Follow up with your dentist as scheduled tomorrow for reassessment. Prescriptions: New amoxicillin-pot clavulanate 875-125 mg tablet 1 tab PO BID Qty: 14 0RF tramadol 50 mg tablet 50 mg PO Q6H PRN (Reason: pain) Qty: 10 0RF No Action prednisone 20 mg tablet 20 mg PO DAILY Qty: 11 0RF Rx Instructions: Day 1-2: Take 3 tablets daily, Day 3- 4: Take 2 tablets daily, Day 5: Take 1 tablet daily. Referrals: Aydee Sands ARNP [Primary Care Provider, Family Practice] Stand Alone Forms: Patient Portal/API
[2025-07-09 16:34] VITALS: BP 140/63; PULSE 82; O2SAT 100
== END 2025-07-09 16:38 | disposition home or self-care (01) ==
PROVIDERS: Emergency Provider Emergency Medicine; PCP Internal Medicine
DX: K08.89 Other specified disorders of teeth and supporting structures (principal)
CPT/HCPCS: 99281

== ENCOUNTER → 2025-09-05 17:33 | Outpatient (CLI) | payer OTHER, SELFPAY | PROVIDERS: PCP Internal Medicine; Visit Provider Chiropractor | DX: J02.9 Acute pharyngitis, unspecified (principal) | CPT/HCPCS: 87070 ==